=== PATIENT | male | born 1950 | race Caucasian/White ===

== ENCOUNTER 2020-05-09 08:48 | Inpatient (IN) | payer MEDICARE, BC ==
[2020-05-09] MEDS ORDERED: Acetaminophen 325 MG Tab PO ONE (08:56)
--- NOTE | 2020-05-09 09:01 | EDM.PDOC ---
ED HPI GENERAL MEDICAL PROBLEM - General Chief Complaint: Fever Stated Complaint: [facility] Time Seen by Provider: 05/09/20 08:50 Source of Information: Reports: Patient, EMS, Half-Way Records History Limitations: Reports: No Limitations - History of Present Illness INITIAL COMMENTS - FREE TEXT/NARRATIVE: 69-year-old male presents to the ED per [facility]. He is morbidly obese and took 6 medics to help lift him to the bed. Apparently he fell once last evening and again during the night with marked difficulties getting him back up on his own feet. Recognized to have a fever and some chills that developed last night. Denies cough or sputum production. Denies sore throat. He is a type II diabetic and reports that his control is pretty good. Denies any dysuria urgency or frequency. Nocturia usually x2. No open wounds on any skin. He currently resides at [facility] home. As far as he knows he has had no exposure to COVID-19. Denies headache. He has not yet eaten today. No nausea or vomiting or diarrhea. Paramedics identified his blood sugar to be 124 this morning. O2 sats were 88% and he was placed on 2 L/min by nasal cannula. Patient does have sleep apnea and wears a CPAP machine. Old status is listed as DO NOT RESUSCITATE. Onset: Gradual Onset Date: 05/08/20 Duration: Hour(s):, Getting Worse Location: Reports: Generalized (Neurolysed weakness with fever) Quality: Reports: Other Severity: Moderate (Generalized weakness with hypoxia.) Improves with: Reports: Rest Worsens with: Reports: Movement Context: Denies: Activity (And difficulty standing and walking due to generalized weakness particular in his lower extremities.), Exercise, Lifting, Sick Contact, Trauma, Other Associated Symptoms: Reports: Fever/Chills, Loss of Appetite (Fever this morning chills last night.), Malaise, Rash (Has a rash around the base of his left neck and upper anterior chest which he states been present for many months.), Shortness of Breath. Denies: No Other Symptoms, Confusion, Chest Pain, Cough, cough w sputum, Diaphoresis, Headaches, Nausea/Vomiting, Seizure, Syncope, Weakness Treatments FINANCE INTERN: Reports: Other (see below) (None.) - Related Data Allergies Allergy/AdvReac Type Severity Reaction Status Date / Time No Known Allergies Allergy Verified 05/09/20 08:58 Home Meds: Home Meds Acetaminophen [Tylenol] 650 mg PO ASDIRECTED PRN 05/09/20 [History] Albuterol Sulfate [Albuterol Sulfate Hfa] 2 puff INH BID 05/09/20 [History] Allopurinol [Zyloprim] 400 mg PO DAILY 05/09/20 [History] Aspirin 81 mg PO DAILY 05/09/20 [History] Calcium Carbonate/Vitamin D3 [Calcium Carbonate/Vitamin D 600 MG-200 Unit] 600 mg PO DAILY 05/09/20 [History] Furosemide [Lasix] 40 mg PO DAILY 05/09/20 [History] Levothyroxine 25 - 50 mcg PO ASDIRECTED 05/09/20 [History] Losartan [Cozaar] 100 mg PO DAILY 05/09/20 [History] Multivitamin 1 tab PO DAILY 05/09/20 [History] Spironolactone [Aldactone] 25 mg PO DAILY 05/09/20 [History] Ubidecarenone [Coenzyme Q10] 100 mg PO DAILY 05/09/20 [History] amLODIPine Besylate [Norvasc] 10 mg PO DAILY 05/09/20 [History] atorvaSTATin [Lipitor] 10 mg PO DAILY 05/09/20 [History] glipiZIDE [Glipizide ER] 5 mg PO DAILY 05/09/20 [History] metFORMIN HCl [Fortamet] 1,000 mg PO DAILY 05/09/20 [History] Past Medical History Cardiovascular History: Reports: Hypertension, [place] (ECG suggest old anteroseptal and inferior wall myocardial infarction's.) Respiratory History: Reports: COPD, Sleep Apnea (Does wear CPAP machine at bedtime.) Genitourinary History: Reports: BPH (Asim frequency. Nocturia x2), Other (See Below) Musculoskeletal History: Reports: Back Pain, Chronic, Osteoarthritis Endocrine/Metabolic History: Reports: Diabetes, Type II (Controlled with oral medications and diet for the last 7 years.), Obesity/BMI 30+ Social & Family History - Living Situation & Occupation Living situation: Reports: Extended Care Facility (Currently a resident at [facility] which is an assisted care living center.) Occupation: Unemployed ED ROS GENERAL - Review of Systems Review Of Systems: See Below Constitutional: Reports: Fever (As last night.), Chills, Malaise, Weakness ( Fever definitely this morning not noticeable much yesterday.), Fatigue, Other (Has fallen at home last night and again this morning. This due to weakness) HEENT: Reports: No Symptoms Respiratory: Reports: Shortness of Breath. Denies: Wheezing, Pleuritic Chest Pain, Cough, Sputum, Hemoptysis Cardiovascular: Reports: Blood Pressure Problem, Dyspnea on Exertion (Likely left lower extremity), Edema. Denies: Chest Pain, Claudication, Lightheadedness, Orthopnea Endocrine: Reports: Fatigue ( chronically.) GI/Abdominal: Reports: Constipation : Reports: Frequency (Nocturia x2-3. Known BPH.). Denies: Dysuria Musculoskeletal: Reports: Back Pain, Joint Pain (His hips neck shoulders at times.) Skin: Reports: No Symptoms Neurological: Reports: Difficulty Walking, Weakness Hematologic/Lymphatic: Reports: No Symptoms Immunologic: Reports: No Symptoms ED EXAM, SEPSIS - Physical Exam Exam: See Below Exam Limited By: Physical Impairment (Impaired mobility due to severe morbid obesity.) General Appearance: Alert, WD/WN, Mild Distress, Other (Temperature is 38.6 a markedly febrile. Pulse 113 and sinus. Respiratory of 24 with sats of 1 to 82% room air BP is recorded at 144 123 which is likely inaccurate due to pulse pressure being too close together.) Eye Exam: Bilateral Eye: Normal Inspection, PERRL Ears: Normal TMs Throat/Mouth: Normal Oropharynx (Tongue is moderately dry and coated.), Other Head: Atraumatic, Normocephalic Neck: Normal Inspection, Supple, Non-Tender, Full Range of Motion. No: Carotid Bruit, Lymphadenopathy (L), Lymphadenopathy (R) Respiratory/Chest: Respiratory Distress (Moderate tachypnea with hypoxia on room air.), Decreased Breath Sounds. No: Rales, Rhonchi, Wheezing Cardiovascular: No Edema (Sinus tachycardia), No Gallop, No Murmur, No Rub, Tachycardia. No: Normal Peripheral Pulses (Decreased breath sounds to the 25% of lower lung [place] bilaterally due to his size.) Peripheral Pulses: 1+: Posterior Tibial (L), Posterior Tibial (R), Dorsalis Pedis (L), Dorsalis Pedis (R), 2+: Carotid (L), Carotid (R) GI/Abdominal Exam: Normal Bowel Sounds, Soft, Non-Tender, No Organomegaly, No Mass, Pelvis Stable, Other (Abdominal girth limits ability to palpate solid organs. No surgical scars evident.) Back: Decreased Range of Motion. No: CVA Tenderness (L), CVA Tenderness (R) Extremities: Pedal Edema (1-2+ pitting edema left lower extremity. Lipedema bilaterally.), Other Neurological: Alert, Oriented, CN II-XII Intact, Normal Cognition Psychiatric: Normal Affect, Normal Mood Skin: Warm, Dry, Intact, Normal Color, Rash (Patient has a rash around the left side of his neck starting in the midline he reports this is from his CPAP machine rubbing in his skin. He also has a macular erythematous rash scattered over the upper anterior chest and left breast of unclear etiology. He states is been there for many years.) EKG INTERPRETATION EKG Date: 05/09/20 Time: 09:07 Rhythm: Other Rate (Beats/Min): 111 [place]: LAD-Left [place] Deviation (Left axis deviation -41 degrees) P-Wave: Present QRS: LBBB (Left anterior fascicular block pattern.) ST-T: Other (Wandering baseline.) QT: Normal EKG Interpretation Comments: Abnormal ECG. Course - Vital Signs Last Recorded V/S: Last Vital Signs Temp 38.6 C H 05/09/20 09:34 Pulse 113 H 05/09/20 08:54 Resp 24 H 05/09/20 08:54 BP 144/123 H 05/09/20 08:54 Pulse Ox 93 L 05/09/20 09:26 - Orders/Labs/Meds Orders: Active Orders 24 hr Category Date Time Status EKG Documentation Completion [RC] STAT Care 05/09/20 08:56 Active Oxygen Therapy [RC] ASDIRECTED Care 05/09/20 08:58 Active Chest 1V Frontal [CR] Stat Exams 05/09/20 08:56 Taken CULTURE BLOOD [BC] Stat Lab 05/09/20 09:23 Received CULTURE BLOOD [BC] Stat Lab 05/09/20 09:35 Received Remdesivir (Eua) [Remdesivir (EUA)] 100 mg Med 05/10/20 12:00 Active Sodium Chloride 0.9% [Normal Saline] 100 ml IV Q24H Remdesivir (Eua) [Remdesivir (EUA)] 200 mg Med 05/09/20 12:00 Active Sodium Chloride 0.9% [Normal Saline] 250 ml IV ONETIME Sodium Chloride 0.9% [Normal Saline] 1,000 ml Med 05/09/20 09:00 Active IV ASDIRECTED Blood Culture x2 Reflex Set [OM.PC] Stat Oth 05/09/20 08:58 Ordered Medication Orders Acetaminophen (Tylenol) 650 mg PO Q4H PRN PRN Reason: Pain (Mild 1-3)/fever Dexamethasone (Dexamethasone) 6 mg IVPUSH Q24H NURYS Dextrose/Water (Dextrose 50% In Water) 50 ml IVPUSH ASDIRECTED PRN PRN Reason: Hypoglycemia Enoxaparin Sodium (Lovenox) 40 mg SUBCUT Q12H NURYS Hydralazine HCl (Apresoline) 10 mg IVPUSH Q2H PRN PRN Reason: Hypertension Sodium Chloride (Normal Saline) 1,000 mls @ 150 mls/hr IV ASDIRECTED NURYS Last Admin: 05/09/20 09:38 Dose: 150 mls/hr Documented by: HEINSHA Remdesivir 200 mg/ Sodium (Chloride) 250 mls @ 250 mls/hr IV ONETIME ONE Stop: 05/09/20 12:59 Last Admin: 05/09/20 11:47 Dose: 250 mls/hr Documented by: HEINSHA Remdesivir 100 mg/ Sodium (Chloride) 100 mls @ 100 mls/hr IV Q24H [facility] Stop: 05/13/20 12:59 Tocilizumab 800 mg/ Sodium (Chloride) 100 mls @ 100 mls/hr IV Q12H [facility] Stop: 05/10/20 01:59 Insulin Glargine (Lantus) 5 unit SUBCUT BEDTIME NURYS Ondansetron HCl (Zofran Odt) 4 mg PO Q6H PRN PRN Reason: nausea, able to take PO Ondansetron HCl (Zofran) 4 mg IV Q6H PRN PRN Reason: Nausea/Vomiting Labs: Laboratory Tests 05/09/20 05/09/20 05/09/20 Range/Units 09:15 09:15 09:23 WBC 6.80 (4.23-9.07) K/mm3 RBC 4.39 L (4.63-6.08) M/mm3 Hgb 13.0 L (13.7-17.5) gm/dl Hct 40.5 (40.1-51.0) % MCV 92.3 H (79.0-92.2) fl MCH 29.6 (25.7-32.2) pg MCHC 32.1 L (32.2-35.5) g/dl RDW Std Deviation 45.6 H (35.1-43.9) fL Plt Count 212 (163-337) K/mm3 MPV 9.2 L (9.4-12.3) fl Neutrophils % (Manual) 73 H (40-60) % Band Neutrophils % 1 (0-10) % Lymphocytes % (Manual) 12 L (20-40) % Atypical Lymphs % 0 % Monocytes % (Manual) 14 H (2-10) % Eosinophils % (Manual) 0 L (0.8-7.0) % Basophils % (Manual) 0 L (0.2-1.2) Platelet Estimate Adequate RBC Morph Comment Normal Percent Retic (0.51-1.81) % PT (9.7-11.7) SECONDS INR APTT (22-31) SECONDS D-Dimer, Quantitative (0.19-0.50) mg/L Puncture Site Rt radial ABG pH 7.38 (7.35-7.45) ABG pCO2 45.0 (35.0-45.0) mmHg ABG pO2 89.0 (80.0-100.0) mmHg ABG HCO3 26 (22.0-26.0) meq/L ABG O2 Saturation 95.0 L (96.0-97.0) % ABG Base Excess 1.2 (-2-2.0) Harjinder Test Positive A-a Gradient 83 mmHg O2 Delivery Device Nasal cannula Oxygen Flow Rate 3.0 FiO2 32.00 (21.00-100.00) % Sodium (136-145) mEq/L Potassium (3.5-5.1) mEq/L Chloride (98-107) mEq/L Carbon Dioxide (21-32) mEq/L Anion Gap (5-15) BUN (7-18) mg/dL Creatinine (0.7-1.3) mg/dL Est Cr Clr Drug Dosing mL/min Estimated GFR (MDRD) (>60) mL/min BUN/Creatinine Ratio (14-18) Glucose (80-115) mg/dL Hemoglobin A1c (4.50-6.20) % Lactic Acid (0.4-2.0) mmol/L Calcium (8.5-10.1) mg/dL Magnesium (1.8-2.4) mg/dl Iron (65-175) ug/dL TIBC (100-400) ug/dL % Saturation (20-55) % Transferrin (202-364) mg/dL Ferritin (26-388) ng/ml Total Bilirubin (0.2-1.0) mg/dL AST (15-37) U/L ALT (16-63) U/L Alkaline Phosphatase (46-116) U/L Lactate Dehydrogenase (85-227) U/L CK-MB (CK-2) (0-3.6) ng/ml Troponin I (0.00-0.056) ng/mL C-Reactive Protein (<1.0) mg/dL NT-Pro-B Natriuret Pep (0-125) pg/mL Total Protein (6.4-8.2) g/dl Albumin (3.4-5.0) g/dl Globulin gm/dL Albumin/Globulin Ratio (1-2) Vitamin D 25-Hydroxy (30.0-100.0) ng/ml SARS Virus RNA (PCR) Positive H (NEGATIVE) 05/09/20 05/09/20 05/09/20 Range/Units 09:23 09:23 09:23 WBC (4.23-9.07) K/mm3 RBC (4.63-6.08) M/mm3 Hgb (13.7-17.5) gm/dl Hct (40.1-51.0) % MCV (79.0-92.2) fl MCH (25.7-32.2) pg MCHC (32.2-35.5) g/dl RDW Std Deviation (35.1-43.9) fL Plt Count (163-337) K/mm3 MPV (9.4-12.3) fl Neutrophils % (Manual) (40-60) % Band Neutrophils % (0-10) % Lymphocytes % (Manual) (20-40) % Atypical Lymphs % % Monocytes % (Manual) (2-10) % Eosinophils % (Manual) (0.8-7.0) % Basophils % (Manual) (0.2-1.2) Platelet Estimate RBC Morph Comment Percent Retic (0.51-1.81) % PT 10.9 (9.7-11.7) SECONDS INR 1.02 APTT 32 H (22-31) SECONDS D-Dimer, Quantitative (0.19-0.50) mg/L Puncture Site ABG pH (7.35-7.45) ABG pCO2 (35.0-45.0) mmHg ABG pO2 (80.0-100.0) mmHg ABG HCO3 (22.0-26.0) meq/L ABG O2 Saturation (96.0-97.0) % ABG Base Excess (-2-2.0) Harjinder Test A-a Gradient mmHg O2 Delivery Device Oxygen Flow Rate FiO2 (21.00-100.00) % Sodium (136-145) mEq/L Potassium (3.5-5.1) mEq/L Chloride (98-107) mEq/L Carbon Dioxide (21-32) mEq/L Anion Gap (5-15) BUN (7-18) mg/dL Creatinine (0.7-1.3) mg/dL Est Cr Clr Drug Dosing mL/min Estimated GFR (MDRD) (>60) mL/min BUN/Creatinine Ratio (14-18) Glucose (80-115) mg/dL Hemoglobin A1c (4.50-6.20) % Lactic Acid (0.4-2.0) mmol/L Calcium (8.5-10.1) mg/dL Magnesium (1.8-2.4) mg/dl Iron (65-175) ug/dL TIBC (100-400) ug/dL % Saturation (20-55) % Transferrin (202-364) mg/dL Ferritin 243 (26-388) ng/ml Total Bilirubin (0.2-1.0) mg/dL AST (15-37) U/L ALT (16-63) U/L Alkaline Phosphatase (46-116) U/L Lactate Dehydrogenase (85-227) U/L CK-MB (CK-2) (0-3.6) ng/ml Troponin I (0.00-0.056) ng/mL C-Reactive Protein (<1.0) mg/dL NT-Pro-B Natriuret Pep (0-125) pg/mL Total Protein (6.4-8.2) g/dl Albumin (3.4-5.0) g/dl Globulin gm/dL Albumin/Globulin Ratio (1-2) Vitamin D 25-Hydroxy (30.0-100.0) ng/ml SARS Virus RNA (PCR) (NEGATIVE) 05/09/20 05/09/20 05/09/20 Range/Units 09:23 09:23 09:23 WBC (4.23-9.07) K/mm3 RBC (4.63-6.08) M/mm3 Hgb (13.7-17.5) gm/dl Hct (40.1-51.0) % MCV (79.0-92.2) fl MCH (25.7-32.2) pg MCHC (32.2-35.5) g/dl RDW Std Deviation (35.1-43.9) fL Plt Count (163-337) K/mm3 MPV (9.4-12.3) fl Neutrophils % (Manual) (40-60) % Band Neutrophils % (0-10) % Lymphocytes % (Manual) (20-40) % Atypical Lymphs % % Monocytes % (Manual) (2-10) % Eosinophils % (Manual) (0.8-7.0) % Basophils % (Manual) (0.2-1.2) Platelet Estimate RBC Morph Comment Percent Retic (0.51-1.81) % PT (9.7-11.7) SECONDS INR APTT (22-31) SECONDS D-Dimer, Quantitative 0.85 H (0.19-0.50) mg/L Puncture Site ABG pH (7.35-7.45) ABG pCO2 (35.0-45.0) mmHg ABG pO2 (80.0-100.0) mmHg ABG HCO3 (22.0-26.0) meq/L ABG O2 Saturation (96.0-97.0) % ABG Base Excess (-2-2.0) Harjinder Test A-a Gradient mmHg O2 Delivery Device Oxygen Flow Rate FiO2 (21.00-100.00) % Sodium (136-145) mEq/L Potassium (3.5-5.1) mEq/L Chloride (98-107) mEq/L Carbon Dioxide (21-32) mEq/L Anion Gap (5-15) BUN (7-18) mg/dL Creatinine (0.7-1.3) mg/dL Est Cr Clr Drug Dosing mL/min Estimated GFR (MDRD) (>60) mL/min BUN/Creatinine Ratio (14-18) Glucose (80-115) mg/dL Hemoglobin A1c (4.50-6.20) % Lactic Acid 0.9 (0.4-2.0) mmol/L Calcium (8.5-10.1) mg/dL Magnesium (1.8-2.4) mg/dl Iron (65-175) ug/dL TIBC (100-400) ug/dL % Saturation (20-55) % Transferrin (202-364) mg/dL Ferritin (26-388) ng/ml Total Bilirubin (0.2-1.0) mg/dL AST (15-37) U/L ALT (16-63) U/L Alkaline Phosphatase (46-116) U/L Lactate Dehydrogenase (85-227) U/L CK-MB (CK-2) (0-3.6) ng/ml Troponin I (0.00-0.056) ng/mL C-Reactive Protein (<1.0) mg/dL NT-Pro-B Natriuret Pep 226 H (0-125) pg/mL Total Protein (6.4-8.2) g/dl Albumin (3.4-5.0) g/dl Globulin gm/dL Albumin/Globulin Ratio (1-2) Vitamin D 25-Hydroxy (30.0-100.0) ng/ml SARS Virus RNA (PCR) (NEGATIVE) 05/09/20 05/09/20 05/09/20 Range/Units 09:23 09:23 09:23 WBC (4.23-9.07) K/mm3 RBC (4.63-6.08) M/mm3 Hgb (13.7-17.5) gm/dl Hct (40.1-51.0) % MCV (79.0-92.2) fl MCH (25.7-32.2) pg MCHC (32.2-35.5) g/dl RDW Std Deviation (35.1-43.9) fL Plt Count (163-337) K/mm3 MPV (9.4-12.3) fl Neutrophils % (Manual) (40-60) % Band Neutrophils % (0-10) % Lymphocytes % (Manual) (20-40) % Atypical Lymphs % % Monocytes % (Manual) (2-10) % Eosinophils % (Manual) (0.8-7.0) % Basophils % (Manual) (0.2-1.2) Platelet Estimate RBC Morph Comment Percent Retic 0.61 (0.51-1.81) % PT (9.7-11.7) SECONDS INR APTT (22-31) SECONDS D-Dimer, Quantitative (0.19-0.50) mg/L Puncture Site ABG pH (7.35-7.45) ABG pCO2 (35.0-45.0) mmHg ABG pO2 (80.0-100.0) mmHg ABG HCO3 (22.0-26.0) meq/L ABG O2 Saturation (96.0-97.0) % ABG Base Excess (-2-2.0) Harjinder Test A-a Gradient mmHg O2 Delivery Device Oxygen Flow Rate FiO2 (21.00-100.00) % Sodium (136-145) mEq/L Potassium (3.5-5.1) mEq/L Chloride (98-107) mEq/L Carbon Dioxide (21-32) mEq/L Anion Gap (5-15) BUN (7-18) mg/dL Creatinine (0.7-1.3) mg/dL Est Cr Clr Drug Dosing mL/min Estimated GFR (MDRD) (>60) mL/min BUN/Creatinine Ratio (14-18) Glucose (80-115) mg/dL Hemoglobin A1c 6.70 H (4.50-6.20) % Lactic Acid (0.4-2.0) mmol/L Calcium (8.5-10.1) mg/dL Magnesium (1.8-2.4) mg/dl Iron (65-175) ug/dL TIBC (100-400) ug/dL % Saturation (20-55) % Transferrin (202-364) mg/dL Ferritin (26-388) ng/ml Total Bilirubin (0.2-1.0) mg/dL AST (15-37) U/L ALT (16-63) U/L Alkaline Phosphatase (46-116) U/L Lactate Dehydrogenase 297 H (85-227) U/L CK-MB (CK-2) (0-3.6) ng/ml Troponin I (0.00-0.056) ng/mL C-Reactive Protein (<1.0) mg/dL NT-Pro-B Natriuret Pep (0-125) pg/mL Total Protein (6.4-8.2) g/dl Albumin (3.4-5.0) g/dl Globulin gm/dL Albumin/Globulin Ratio (1-2) Vitamin D 25-Hydroxy (30.0-100.0) ng/ml SARS Virus RNA (PCR) (NEGATIVE) 05/09/20 05/09/20 05/09/20 Range/Units 09:23 09:23 09:25 WBC (4.23-9.07) K/mm3 RBC (4.63-6.08) M/mm3 Hgb (13.7-17.5) gm/dl Hct (40.1-51.0) % MCV (79.0-92.2) fl MCH (25.7-32.2) pg MCHC (32.2-35.5) g/dl RDW Std Deviation (35.1-43.9) fL Plt Count (163-337) K/mm3 MPV (9.4-12.3) fl Neutrophils % (Manual) (40-60) % Band Neutrophils % (0-10) % Lymphocytes % (Manual) (20-40) % Atypical Lymphs % % Monocytes % (Manual) (2-10) % Eosinophils % (Manual) (0.8-7.0) % Basophils % (Manual) (0.2-1.2) Platelet Estimate RBC Morph Comment Percent Retic (0.51-1.81) % PT (9.7-11.7) SECONDS INR APTT (22-31) SECONDS D-Dimer, Quantitative (0.19-0.50) mg/L Puncture Site ABG pH (7.35-7.45) ABG pCO2 (35.0-45.0) mmHg ABG pO2 (80.0-100.0) mmHg ABG HCO3 (22.0-26.0) meq/L ABG O2 Saturation (96.0-97.0) % ABG Base Excess (-2-2.0) Harjinder Test A-a Gradient mmHg O2 Delivery Device Oxygen Flow Rate FiO2 (21.00-100.00) % Sodium 133 L (136-145) mEq/L Potassium 4.0 (3.5-5.1) mEq/L Chloride 95 L (98-107) mEq/L Carbon Dioxide 27 (21-32) mEq/L Anion Gap 15.0 (5-15) BUN 33 H (7-18) mg/dL Creatinine 1.3 (0.7-1.3) mg/dL Est Cr Clr Drug Dosing 50.14 mL/min Estimated GFR (MDRD) 55 (>60) mL/min BUN/Creatinine Ratio 25.4 H (14-18) Glucose 126 H (80-115) mg/dL Hemoglobin A1c (4.50-6.20) % Lactic Acid (0.4-2.0) mmol/L Calcium 9.1 (8.5-10.1) mg/dL Magnesium 1.9 (1.8-2.4) mg/dl Iron 11 L (65-175) ug/dL TIBC 285 (100-400) ug/dL % Saturation 4 L (20-55) % Transferrin 228 (202-364) mg/dL Ferritin (26-388) ng/ml Total Bilirubin 0.4 (0.2-1.0) mg/dL AST 52 H (15-37) U/L ALT 43 (16-63) U/L Alkaline Phosphatase 46 (46-116) U/L Lactate Dehydrogenase (85-227) U/L CK-MB (CK-2) 3.4 (0-3.6) ng/ml Troponin I 0.031 (0.00-0.056) ng/mL C-Reactive Protein 14.0 H* (<1.0) mg/dL NT-Pro-B Natriuret Pep (0-125) pg/mL Total Protein 7.1 (6.4-8.2) g/dl Albumin 3.2 L (3.4-5.0) g/dl Globulin 3.9 gm/dL Albumin/Globulin Ratio 0.8 L (1-2) Vitamin D 25-Hydroxy 41.8 (30.0-100.0) ng/ml SARS Virus RNA (PCR) (NEGATIVE) Meds: Medications Generic Name Dose Route Start Last Admin Trade Name Freq PRN Reason Stop Dose Admin Acetaminophen 650 mg 05/09/20 11:27 Tylenol PO Q4H PRN Pain (Mild 1-3)/fever Dexamethasone 6 mg 05/09/20 11:30 Dexamethasone IVPUSH Q24H NURYS Dextrose/Water 50 ml 05/09/20 11:27 Dextrose 50% In Water IVPUSH ASDIRECTED PRN Hypoglycemia Enoxaparin Sodium 40 mg 05/09/20 11:30 Lovenox SUBCUT Q12H NURYS Hydralazine HCl 10 mg 05/09/20 11:32 Apresoline IVPUSH Q2H PRN Hypertension Sodium Chloride 1,000 mls @ 150 mls/hr 05/09/20 09:00 05/09/20 09:38 Normal Saline IV 150 mls/hr ASDIRECTED NURYS Administration Remdesivir 200 mg/ Sodium 250 mls @ 250 mls/hr 05/09/20 12:00 05/09/20 11:47 Chloride IV 05/09/20 12:59 250 mls/hr ONETIME ONE Administration Remdesivir 100 mg/ Sodium 100 mls @ 100 mls/hr 05/10/20 12:00 Chloride IV 05/13/20 12:59 Q24H [facility] Tocilizumab 800 mg/ Sodium 100 mls @ 100 mls/hr 05/09/20 13:00 Chloride IV 05/10/20 01:59 Q12H [facility] Insulin Glargine 5 unit 05/09/20 21:00 Lantus SUBCUT BEDTIME [facility] Ondansetron HCl 4 mg 05/09/20 11:27 Zofran Odt PO Q6H PRN nausea, able to take PO Ondansetron HCl 4 mg 05/09/20 11:27 Zofran IV Q6H PRN Nausea/Vomiting Discontinued Medications Generic Name Dose Route Start Last Admin Trade Name Freq PRN Reason Stop Dose Admin Acetaminophen 975 mg 05/09/20 08:56 05/09/20 09:34 Tylenol PO 05/09/20 08:57 975 mg ONETIME ONE Administration Tocilizumab 800 mg/ Sodium 100 mls @ 100 mls/hr 05/09/20 13:00 Chloride IV 05/10/20 01:59 Q12H [facility] Tocilizumab 800 mg 05/09/20 21:00 Actemra IV 05/10/20 09:01 Q12HR [facility] - Radiology Interpretation Free Text/Narrative:: 69-year-old male presents to the ED from [facility] here in [place] per [facility]. History of fall last night and again early this morning. He is a very large man and required 3 person 4 person assist to get him back up. He was appreciated to have a fever. He complained of some chills last evening. Denies cough or sputum production. Denies exposure to COVID-19. He is a type II diabetic states that his sugars are well controlled on oral medications. He has not yet eaten today. No apparent injuries from falls. Examination reveals morbid obesity. Lungs sound clear oropharynx shows a very dry coated tongue. Benign abdominal exam. Plan septic work-up to be completed. IV will be normal saline at 125 mils per hour. Will require oxygen at 3 L/min per nasal cannula. Patient wears a CPAP machine for sleep apnea. ABGs will be done. COVID-19 work-up will also be done. Given Tylenol 9 7 5 mg p.o. - Re-Assessments/Exams Free Text/Narrative Re-Assessment/Exam: 05/09/20 09:50 ABGs revealed a pH of 7.38 with a PCO2 of 45.1 PO2 of 89 with O2 sats of 95% on 3 L/min by nasal cannula. O2 sats on the monitor currently 92%. BP 108/42. 05/09/20 10:24 Blood pressure has currently slipped down to 90/51. He will be repositioned since he is moving a lot to make sure this is an accurate blood pressure if it is he will receive a 250 mill fluid bolus. Chest x-ray done portably reveals bilateral infiltrates in both lung [place] pneumonia versus fluid overload. Fact that he is febrile strongly suggest pneumonia with possible COVID 19 illness. 05/09/20 10:25 White count is 6.80 with 73% neutrophils and 1% bands cells reported. Hemoglobin is 13.0 with hematocrit of 40.5. MCV slightly elevated at 92.3. Platelet count 212,000. PT is 10.9 with an INR of 1.02. PTT is 32 d- dimer is slightly elevated at 0.85. Blood gases revealed a pH of 7.38 PCO2 of 45.0 PO2 of 89 with O2 sats of 95% on nasal cannula at 3 L. Hemoglobin A1c is 6.70 lactic acid is 0.9. The low white count suggest this is a viral illness and most likely represents COVID-19. Pressure improved with a mean arterial pressure sure of 67. Therefore no normal saline bolus was given. Case has been discussed with Dr. Evans on-call hospitalist and she will see the patient in the emergency room. He is saturating at 92 to 94% on 3 L by nasal cannula at this time. He has multiple comorbidities placing her at risk of extremely serious illness from COVID-19 at this time. He is morbidly obese. His ECG suggests old myocardial infarction's with coronary disease. He has COPD and sleep apnea. Free Text/Narrative Re-Assessment/Exam: 05/09/20 11:10 Serum ferritin is 243. CK-MB fraction is 3.4 with a troponin I of less than 0.031. C-reactive protein is 14.0. BNP is 226. COVID-19 is positive. LDH is pending. 05/09/20 11:37 LDH is mildly elevated at 297. Dr. Evans is seen the patient in the ED and will plan to admit him to the hospital due to COVID-19 illness. Departure - Departure Time of Disposition: 12:44 Disposition: Admitted As Inpatient 66 Condition: Serious Clinical Impression: Morbid obesity with BMI of 50.0-59.9, adult, Type 2 diabetes mellitus, COVID-19 determined by clinical diagnostic criteria, Bilateral pneumonia, Hypoxia - Discharge Information *PRESCRIPTION DRUG MONITORING PROGRAM REVIEWED*: Not Applicable *COPY OF PRESCRIPTION DRUG MONITORING REPORT IN PATIENT EDWIN: Not Applicable Sepsis Event Note (ED) - Focused Exam Vital Signs: Vital Signs Temp Temp Pulse Resp BP Pulse Ox Pulse Ox 05/09/20 09:34 38.6 C H 05/09/20 09:26 93 L 05/09/20 08:54 38.6 C H 113 H 24 H 144/123 H 82 L - My Orders Last 24 Hours: My Active Orders 05/09/20 08:56 EKG Documentation Completion [RC] STAT Chest 1V Frontal [CR] Stat 05/09/20 08:58 Oxygen Therapy [RC] ASDIRECTED Blood Culture x2 Reflex Set [OM.PC] Stat 05/09/20 09:00 Sodium Chloride 0.9% [Normal Saline] 1,000 ml IV ASDIRECTED 05/09/20 09:23 CULTURE BLOOD [BC] Stat 05/09/20 09:35 CULTURE BLOOD [BC] Stat - Assessment/Plan Last 24 Hours: My Active Orders 05/09/20 08:56 EKG Documentation Completion [RC] STAT Chest 1V Frontal [CR] Stat 05/09/20 08:58 Oxygen Therapy [RC] ASDIRECTED Blood Culture x2 Reflex Set [OM.PC] Stat 05/09/20 09:00 Sodium Chloride 0.9% [Normal Saline] 1,000 ml IV ASDIRECTED 05/09/20 09:23 CULTURE BLOOD [BC] Stat 05/09/20 09:35 CULTURE BLOOD [BC] Stat
[2020-05-09] MEDS: Sodium Chloride 0.9% 1,000 ML IV SCH ×3 (09:38→21:22)
[2020-05-09 10:16] LABS: HEMOGLOBIN A1C 6.7 % (4.50-6.20)
[2020-05-09] MEDS ORDERED: 50% Dextrose in Water 50 ML Syringe IVPUSH PRN (11:27)
[2020-05-09] MEDS ORDERED: Ondansetron 4 MG Tab.DIS PO PRN (11:27)
[2020-05-09] MEDS ORDERED: Ondansetron 4 MG/2 ML SDV IV PRN (11:27)
[2020-05-09] MEDS ORDERED: hydrALAZINE 20 MG/ML SDV IVPUSH PRN (11:32)
--- NOTE | 2020-05-09 11:44 | PCM.HP.2 ---
H&P History of Present Illness - General Date of Service: 05/09/20 Admit Problem/Dx: Admission Diagnosis/Problem Admission Diagnosis/Problem Viral pneumonia - History of Present Illness Initial Comments - Free Text/Narative: This is a 69-year-old male with past medical history of COPD, LUKAS, diabetes and hypertension who comes emergency department brought in via EMS from [place], shortness of breath, hypoxemia and decreased appetite. As per patient he was in his usual state of health until yesterday while transferring from his chair to. Describes falling denies legs giving out from under him any symptoms before or after or loss of consciousness. This morning had a second fall described as "exactly the same as yesterday". Does state that he had some chills last night. For [facility] patient's vital signs this morning were heart rate of 128, respiratory rate of 38, blood pressure 135/60, temperature 100.8 and pulse ox of 70% on room air. They also state the patient is normally a pivot to his chair pending but has been unable to do so since yesterday. Associated with CONWAY and mild worsening of edema of his left foot. He denies sputum production, bronchitis, chest pain, palpitations, orthopnea, PND, abdominal pain, diarrhea, nausea, vomiting or problems in his urine. - Related Data Allergies/Adverse Reactions: Allergies Allergy/AdvReac Type Severity Reaction Status Date / Time No Known Allergies Allergy Verified 05/09/20 08:58 Home Medications: Home Meds Acetaminophen [Tylenol] 650 mg PO ASDIRECTED PRN 05/09/20 [History] Albuterol Sulfate [Albuterol Sulfate Hfa] 2 puff INH BID 05/09/20 [History] Allopurinol [Zyloprim] 400 mg PO DAILY 05/09/20 [History] Aspirin 81 mg PO DAILY 05/09/20 [History] Calcium Carbonate/Vitamin D3 [Calcium Carbonate/Vitamin D 600 MG-200 Unit] 600 mg PO DAILY 05/09/20 [History] Furosemide [Lasix] 40 mg PO DAILY 05/09/20 [History] Levothyroxine 25 - 50 mcg PO ASDIRECTED 05/09/20 [History] Losartan [Cozaar] 100 mg PO DAILY 05/09/20 [History] Multivitamin 1 tab PO DAILY 05/09/20 [History] Spironolactone [Aldactone] 25 mg PO DAILY 05/09/20 [History] Ubidecarenone [Coenzyme Q10] 100 mg PO DAILY 05/09/20 [History] amLODIPine Besylate [Norvasc] 10 mg PO DAILY 05/09/20 [History] atorvaSTATin [Lipitor] 10 mg PO DAILY 05/09/20 [History] glipiZIDE [Glipizide ER] 5 mg PO DAILY 05/09/20 [History] metFORMIN HCl [Fortamet] 1,000 mg PO DAILY 05/09/20 [History] Past Medical History Cardiovascular History: Reports: Hypertension, CA (ECG suggest old anteroseptal and inferior wall myocardial infarction's.) Respiratory History: Reports: COPD, Sleep Apnea (Does wear CPAP machine at bedtime.) Genitourinary History: Reports: BPH (Asim frequency. Nocturia x2), Other (See Below) Musculoskeletal History: Reports: Back Pain, Chronic, Osteoarthritis Endocrine/Metabolic History: Reports: Diabetes, Type II (Controlled with oral medications and diet for the last 7 years.), Obesity/BMI 30+ Social & Family History - Living Situation & Occupation Living situation: Reports: Extended Care Facility (Currently a resident at [facility] which is an assisted care living center.) Occupation: Unemployed H&P Review of Systems - Review of Systems: Review Of Systems: See Below General: Reports: Chills, Weakness, Decreased Appetite. Denies: Fever, Malaise, Fatigue, Night Sweats, Diaphoresis HEENT: Denies: Post Nasal Drip, Sinus Congestion, Sore Throat, Vertigo, Visual Changes Pulmonary: Reports: Shortness of Breath. Denies: Wheezing, Pleuritic Chest Pain, Cough, Sputum, Hemoptysis Cardiovascular: Reports: Dyspnea on Exertion, Edema. Denies: Chest Pain, Palpitations, Orthopnea, PND, Lightheadedness, Syncope, Claudication, Blood Pressure Problem Gastrointestinal: Denies: Abdominal Pain, Anorexia, Black Stool, Bloody Stool, Constipation, Diarrhea, Nausea, Vomiting Genitourinary: Denies: Dysuria, Frequency, Burning, Pain, Urgency Musculoskeletal: Denies: Joint Pain, Joint Swelling, Muscle Pain, Muscle Stiffness Skin: Reports: Diaphoresis. Denies: Cyanosis, Jaundice, Mottled, Pallor Psychiatric: Denies: Depression, Mood Lability, Anxiety Neurological: Denies: Dizziness, Headache, Numbness Exam - Exam Exam: See Below - Vital Signs Vital Signs: Last Vital Signs Temp 101.5 F H 05/09/20 09:34 Pulse 113 H 05/09/20 08:54 Resp 24 H 05/09/20 08:54 BP 144/123 H 05/09/20 08:54 Pulse Ox 93 L 05/09/20 09:26 Weight: 172.365 kg - Exam Quality Assessment: Other (Confounded by body habitus) General: Alert, Oriented, Cooperative, Mild Distress HEENT: Conjunctiva Clear, EACs Clear, EOMI, Hearing Intact, Mucosa Moist & [place] Neck: Supple Lungs: Decreased Breath Sounds. No: Crackles, Rales, Rhonchi, Rub, Stridor, Wheezing Cardiovascular: Regular Rhythm, Tachycardia. No: Systolic Murmur, Diastolic Mur mur, Rubs, Gallop/S3, Gallop/S4 GI/Abdominal Exam: Distended, Rigid. No: Guarding, Rebound, Tender Extremities: Other (Stasis dermatitis, 1+ pitting edema on left lower extremity up to mid mehta. Significant onychogryphosis) Peripheral Pulses: 2+: Radial (L), Radial (R) Skin: Dry, Intact - Patient Data Result Diagrams: 05/09/20 09:23 05/09/20 09:25 Sepsis Event Note - Evaluation Sepsis Screening Result: Possible Sepsis Risk - Problem List (1) Pneumonia due to COVID-19 virus SNOMED Code(s): 554054439 ICD Code: U07.1 - COVID-19; J12.89 - OTHER VIRAL PNEUMONIA Status: Acute Current Visit: Yes (2) Acute hypoxemic respiratory failure due to COVID-19 SNOMED Code(s): 497264578 ICD Code: U07.1 - COVID-19; J96.01 - ACUTE RESPIRATORY FAILURE WITH HYPOXIA Status: Acute Current Visit: Yes (3) COPD (chronic obstructive pulmonary disease) SNOMED Code(s): 29636829 ICD Code: J44.9 - CHRONIC OBSTRUCTIVE PULMONARY DISEASE, UNSPECIFIED Status: Acute Current Visit: Yes (4) Obstructive sleep apnea SNOMED Code(s): 01415672 ICD Code: G47.33 - OBSTRUCTIVE SLEEP APNEA (ADULT) (PEDIATRIC) Status: Acute Current Visit: Yes (5) Hypertension SNOMED Code(s): 52464964 ICD Code: I10 - ESSENTIAL (PRIMARY) HYPERTENSION Status: Acute Current Visit: Yes (6) Diabetes mellitus SNOMED Code(s): 39580809 ICD Code: E11.9 - TYPE 2 DIABETES MELLITUS WITHOUT COMPLICATIONS Status: Acute Current Visit: Yes (7) Microcytic hypochromic anemia SNOMED Code(s): 75077840 ICD Code: D50.9 - IRON DEFICIENCY ANEMIA, UNSPECIFIED Status: Acute Current Visit: Yes (8) Acute kidney injury due to COVID-19 SNOMED Code(s): 285301224 ICD Code: U07.1 - COVID-19; N17.9 - ACUTE KIDNEY FAILURE, UNSPECIFIED Status: Acute Current Visit: Yes (9) Hypoalbuminemia SNOMED Code(s): 669064600 ICD Code: E88.09 - OTH DISORDERS OF PLASMA-PROTEIN METABOLISM, NEC Status: Acute Current Visit: Yes (10) Morbid obesity with BMI of 50.0-59.9, adult SNOMED Code(s): 275576164, 00899982877510 ICD Code: E66.01 - MORBID (SEVERE) OBESITY DUE TO EXCESS CALORIES; Z68.43 - BODY MASS INDEX (BMI) 50.0-59.9, ADULT Status: Acute Current Visit: Yes (11) Hypothyroidism SNOMED Code(s): 37186094 ICD Code: E03.9 - HYPOTHYROIDISM, UNSPECIFIED Status: Acute Current Visit: Yes (12) Dyslipidemia SNOMED Code(s): 428511419 ICD Code: E78.5 - HYPERLIPIDEMIA, UNSPECIFIED Status: Acute Current Visit: Yes (13) Gout SNOMED Code(s): 29502989 ICD Code: M10.9 - GOUT, UNSPECIFIED Status: Acute Current Visit: Yes Problem List Initiated/Reviewed/Updated: Yes Assessment/Plan Comment:: Brought in via EMS from [facility] for worsening shortness of breath, hypoxemia and 2 falls associated with CONWAY and chills last night Vital signs Prior to transfer: Rate 128, respiratory rate 38, blood pressure 134/50 temp 100.8, felt 70% on room air Upon arrival to ED: Heart rate 113, blood pressure 144/123 (130), temperature 101.5, pulse ox 82% on room air (went up to 92% on 3 L) Placed on nasal cannula once in the emergency department did stabilize pulse ox Lab results CBC: WBC 6.8, hemoglobin 13 (macrocytic hypochromic), platelets 212 Chemistry: Sodium 133, potassium 4, chloride 95, magnesium 1.9, CO2 27, GFR 55, glucose 126 LFTs: Total bilirubin 0.4, alkaline phosphatase 46, AST 43, ALT 52, total protein 7.1, albumin 3.2 D-dimer 0.85 Lactate 0.9 Ferritin 243 proBNP 226 CRP 14 ABGs: 7.38/40 5.1/80 9/20 6.1/95.1 on 3 L nasal cannula Hemoglobin A1c 6.7 COVID 19 + Other results: Chest x-ray: Bilateral patchy infiltrates throughout lung [place], diminished lung size, no pleural effusions EKG: Left axis deviation, Q waves in inferior and anterior leads (III, aVF, V4 through V6) Pneumonia due to COVID-19 virus Acute hypoxemic respiratory failure due to COVID-19 Pulse ox 82% on room air upon admission which increased to 92% once patient was placed on nasal cannula No respiratory distress noted upon my evaluation Despite body habitus adequate air entry was heard throughout except for diminished at bases ABGs with adequate PaO2 and saturation Multiple cases positive from [place] Chest x-ray compatible with bilateral viral pneumonia Inflammatory markers except for CRP are low Fever likely from viral infection however blood cultures were drawn in the emergency department Has some risk factors for bacterial pneumonia as well for which her procal citonin will be ordered and trended PLAN Start Remdesivir, to complete 5 days Start dexamethasone 6 mg daily to complete 10 days Start Actemra x2 doses for now Depending on improvement tomorrow will decide whether or not he needs convalescent plasma COPD (chronic obstructive pulmonary disease) COPD, not oxygen dependent at home Has never needed oxygen supplementation before Never been admitted to the hospital for COPD exacerbation Only home treatment is albuterol HFA twice daily Patient is not wheezing on physical exam, air entry is severely diminished however this is confounded by body habitus Since patient was tachycardic on admission we will hold off on albuterol unless needed PLAN Monitor oxygenation Goal pulse ox above 88 Hold home albuterol Obstructive sleep apnea Endorses full compliance with nightly CPAP for LUKAS Pressure is 8, last adjustment about a year ago PLAN Called [facility] to bring home CPAP Hypertension Blood pressure control is unable to be determined as patient was short of breath and in distress with initial vital signs Home management with amlodipine 10 and losartan 100 PLAN Continue home amlodipine and losartan PRN hydralazine for SBP above 200 and DBP above 100 Diabetes mellitus, HbA1c6.7% Diabetes appears to be controlled A1c of 6.7, might be a little bit different due to patient being anemic Glucose at home ranges between 125 and 145 as per patient Home management with metformin and glipizide Has never been on insulin Patient will be started on dexamethasone as per COVID management for which low dose long-acting insulin will be started and adjusted as necessary PLAN Scheduled Accu-Cheks before meals and at bedtime Hypoglycemia protocol Glargine 5 units at bedtime Hold home metformin and glipizide during admission Microcytic hypochromic anemia Chronicity unknown Alters hemoglobin A1c measurement PLAN Iron panel ordered Blood smear ordered Goal hemoglobin above 8 Acute kidney injury due to COVID-19 Baseline GFR is unknown GFR on admission is 55 Sodium 133 PLAN NS for now Encourage p.o. fluid intake Monitor urine output Check prior records for baseline GFR Renally dose medications and avoid nephrotoxic ones Repeat labs as needed Hypoalbuminemia Morbid obesity with BMI of 50.0-59.9, adult Patient endorses very poor eating habits Has minimal daily activity pivoting to and from his scooter PLAN Prealbumin level Vitamin D, B12 and folic acid levels ordered Hypothyroidism No acute issues identified On home levothyroxine 75 mcg PLAN Continue home levothyroxine Dyslipidemia Patient likely has undiagnosed coronary artery disease Identified Q waves on EKG in anterolateral leads and inferior leads Home management with atorvastatin 10, unsure if this covers his ASCVD risk PLAN New lipid panel Continue atorvastatin and aspirin for now Adjust doses as necessary Gout Denies any previous exacerbations On home allopurinol 400 daily PLAN Uric acid level Continue home allopurinol at 400 daily for now PROPHYLAXIS DVTLovenox twice daily GInot indicated CODE STATUS: FULL CODE, confirmed with patient that he change his mind from previous advanced directives DISPOSITION: Patient will be fully admitted to medical treatment with Remdesivir, dexamethasone and Actemra for now, depending on progress will start plasma and oxygen supplementation. Length of stay at least 5 days as per Remdesivir treatment regimen requirements. SOCIAL: Patient is a resident of [facility], lives with his there who is medical power of student services rep. Normally does pivot to his scooter but has not been able to do so in the past couple of days Not oxygen dependent at home PCP is Dr. Robert - Mortality Measure Prognosis:: Poor (COVID pneumonia in the setting of diabetes, morbid obesity, LUKAS and COPD)
[2020-05-09] MEDS: Dexamethasone 4 MG/ML SDV IVPUSH SCH (14:45)
[2020-05-09] MEDS: Enoxaparin 40 MG/0.4 ML Syringe SUBCUT SCH (14:46)
--- NOTE | 2020-05-09 19:46 | CR ---
Chest: Portable view of the chest was obtained. Comparison: Prior chest x-ray of 04/30/13. Increased central lung markings are seen. Heart is enlarged. No alveolar type densities are seen. Bony structures are grossly intact. Impression: 1. Increased central lung markings. Uncertain if this represents interstitial pneumonia/bronchitis or represents pulmonary vascular congestion. 2. Heart size is slightly enlarged. Diagnostic code #3 This report was dictated in MDT
[2020-05-09] MEDS ORDERED: Tocilizumab 400 MG/20 ML SDV IV SCH (21:00)
[2020-05-09] MEDS: Insulin Glarg,Human.Rec.Analog 100 Unit/ML SUBCUT SCH (21:22)
[2020-05-10] MEDS: Enoxaparin 40 MG/0.4 ML Syringe SUBCUT SCH ×4 (00:41→22:50)
[2020-05-10] MEDS: Sodium Chloride 0.9% 1,000 ML IV SCH ×2 (04:52→11:31)
[2020-05-10] MEDS ORDERED: Levothyroxine 25 MCG Tab PO SCH (10:00)
[2020-05-10] MEDS: cefTRIAXone 2 GM in Sodium Chloride 0.9% 100 ML IV SCH (10:24)
[2020-05-10] MEDS: Nystatin Topical Powder 15 GM Bottle TOP PRN ×2 (10:46→20:43)
[2020-05-10] MEDS: Azithromycin 500 MG in Sodium Chloride 0.9% 250 ML IV SCH (10:51)
[2020-05-10] MEDS: Insulin Lispro 100 Units/ML 3 ML Vial SUBCUT SCH ×4 (11:00→22:49)
[2020-05-10] MEDS: Levothyroxine 50 MCG Tab PO SCH (11:30)
[2020-05-10] MEDS: REMDESIVIR (EUA) 100 MG in Sodium Chloride 0.9% 100 ML IV SCH (11:30)
[2020-05-10] MEDS: Dexamethasone 4 MG/ML SDV IVPUSH SCH (11:31)
[2020-05-10] MEDS ORDERED: Sodium Chloride 0.9% 1,000 ML IV SCH (12:15)
[2020-05-10] MEDS: Spironolactone 25 MG Tab PO SCH (12:40)
[2020-05-10] MEDS: Furosemide 40 MG Tab PO SCH (12:40)
--- NOTE | 2020-05-10 18:23 | PCM.PN ---
- General Info Date of Service: 05/10/20 Admission Dx/Problem (Free Text): Admission Diagnosis/Problem Admission Diagnosis/Problem Viral pneumonia Subjective Update: Patient states he has less shortness of breath today, but he is requiring increasing amounts of oxygen.Appetite is still good and he had a bowel movement yesterday. Functional Status: Reports: Pain Controlled - Review of Systems General: Reports: No Symptoms. Denies: Fever HEENT: Reports: No Symptoms Pulmonary: Reports: Shortness of Breath Cardiovascular: Reports: No Symptoms Gastrointestinal: Reports: No Symptoms Musculoskeletal: Reports: No Symptoms Neurological: Reports: No Symptoms Psychiatric: Reports: No Symptoms - Patient Data Vitals - Most Recent: Last Vital Signs Temp 97.8 F 05/10/20 17:21 Pulse 88 05/10/20 10:54 Resp 24 H 05/10/20 17:21 BP 122/57 L 05/10/20 17:21 Pulse Ox 89 L 05/10/20 17:21 Weight - Most Recent: 172.773 kg I&O - Last 24 Hours: Intake & Output 05/10/20 05/10/20 05/10/20 06:59 14:59 22:59 Intake Total 2452 180 2250 Output Total 2950 1500 Balance -498 180 750 Lab Results Last 24 Hours: Laboratory Results - last 24 hr 05/09/20 05/10/20 05/10/20 Range/Units 21:19 05:21 05:21 WBC 1.73 L* (4.23-9.07) K/mm3 RBC 4.45 L (4.63-6.08) M/mm3 Hgb 13.5 L (13.7-17.5) gm/dl Hct 41.5 (40.1-51.0) % MCV 93.3 H (79.0-92.2) fl MCH 30.3 (25.7-32.2) pg MCHC 32.5 (32.2-35.5) g/dl RDW Std Deviation 44.7 H (35.1-43.9) fL Plt Count 171 (163-337) K/mm3 MPV 9.4 (9.4-12.3) fl Neutrophils % (Manual) 53 (40-60) % Band Neutrophils % 0 (0-10) % Lymphocytes % (Manual) 26 (20-40) % Atypical Lymphs % 0 % Monocytes % (Manual) 20 H (2-10) % Eosinophils % (Manual) 1 (0.8-7.0) % Basophils % (Manual) 0 L (0.2-1.2) Platelet Estimate Adequate RBC Morph Comment Normal PT 10.9 (9.7-11.7) SECONDS INR 1.02 D-Dimer, Quantitative 0.87 H (0.19-0.50) mg/L Sodium (136-145) mEq/L Potassium (3.5-5.1) mEq/L Chloride (98-107) mEq/L Carbon Dioxide (21-32) mEq/L Anion Gap (5-15) BUN (7-18) mg/dL Creatinine (0.7-1.3) mg/dL Est Cr Clr Drug Dosing mL/min Estimated GFR (MDRD) (>60) mL/min BUN/Creatinine Ratio (14-18) Glucose (80-115) mg/dL POC Glucose 218 H (80-115) mg/dL Calcium (8.5-10.1) mg/dL Phosphorus (2.6-4.7) mg/dL Magnesium (1.8-2.4) mg/dl Ferritin (26-388) ng/ml Lactate Dehydrogenase (85-227) U/L Creatine Kinase (39-308) U/L Troponin I (0.00-0.056) ng/mL C-Reactive Protein (<1.0) mg/dL NT-Pro-B Natriuret Pep (0-125) pg/mL Blood Type 05/10/20 05/10/20 05/10/20 Range/Units 05:21 05:21 05:21 WBC (4.23-9.07) K/mm3 RBC (4.63-6.08) M/mm3 Hgb (13.7-17.5) gm/dl Hct (40.1-51.0) % MCV (79.0-92.2) fl MCH (25.7-32.2) pg MCHC (32.2-35.5) g/dl RDW Std Deviation (35.1-43.9) fL Plt Count (163-337) K/mm3 MPV (9.4-12.3) fl Neutrophils % (Manual) (40-60) % Band Neutrophils % (0-10) % Lymphocytes % (Manual) (20-40) % Atypical Lymphs % % Monocytes % (Manual) (2-10) % Eosinophils % (Manual) (0.8-7.0) % Basophils % (Manual) (0.2-1.2) Platelet Estimate RBC Morph Comment PT (9.7-11.7) SECONDS INR D-Dimer, Quantitative (0.19-0.50) mg/L Sodium 138 (136-145) mEq/L Potassium 4.8 (3.5-5.1) mEq/L Chloride 102 (98-107) mEq/L Carbon Dioxide 26 (21-32) mEq/L Anion Gap 14.8 (5-15) BUN 24 H (7-18) mg/dL Creatinine 1.0 (0.7-1.3) mg/dL Est Cr Clr Drug Dosing 65.18 mL/min Estimated GFR (MDRD) > 60 (>60) mL/min BUN/Creatinine Ratio 24.0 H (14-18) Glucose 153 H (80-115) mg/dL POC Glucose (80-115) mg/dL Calcium 8.0 L (8.5-10.1) mg/dL Phosphorus 4.2 (2.6-4.7) mg/dL Magnesium 1.9 (1.8-2.4) mg/dl Ferritin 342 (26-388) ng/ml Lactate Dehydrogenase 303 H (85-227) U/L Creatine Kinase 9017 H (39-308) U/L Troponin I 0.039 (0.00-0.056) ng/mL C-Reactive Protein 16.4 H* (<1.0) mg/dL NT-Pro-B Natriuret Pep 251 H (0-125) pg/mL Blood Type 05/10/20 05/10/20 05/10/20 Range/Units 05:32 06:55 10:49 WBC (4.23-9.07) K/mm3 RBC (4.63-6.08) M/mm3 Hgb (13.7-17.5) gm/dl Hct (40.1-51.0) % MCV (79.0-92.2) fl MCH (25.7-32.2) pg MCHC (32.2-35.5) g/dl RDW Std Deviation (35.1-43.9) fL Plt Count (163-337) K/mm3 MPV (9.4-12.3) fl Neutrophils % (Manual) (40-60) % Band Neutrophils % (0-10) % Lymphocytes % (Manual) (20-40) % Atypical Lymphs % % Monocytes % (Manual) (2-10) % Eosinophils % (Manual) (0.8-7.0) % Basophils % (Manual) (0.2-1.2) Platelet Estimate RBC Morph Comment PT (9.7-11.7) SECONDS INR D-Dimer, Quantitative (0.19-0.50) mg/L Sodium (136-145) mEq/L Potassium (3.5-5.1) mEq/L Chloride (98-107) mEq/L Carbon Dioxide (21-32) mEq/L Anion Gap (5-15) BUN (7-18) mg/dL Creatinine (0.7-1.3) mg/dL Est Cr Clr Drug Dosing mL/min Estimated GFR (MDRD) (>60) mL/min BUN/Creatinine Ratio (14-18) Glucose (80-115) mg/dL POC Glucose 137 H 138 H (80-115) mg/dL Calcium (8.5-10.1) mg/dL Phosphorus (2.6-4.7) mg/dL Magnesium (1.8-2.4) mg/dl Ferritin (26-388) ng/ml Lactate Dehydrogenase (85-227) U/L Creatine Kinase (39-308) U/L Troponin I (0.00-0.056) ng/mL C-Reactive Protein (<1.0) mg/dL NT-Pro-B Natriuret Pep (0-125) pg/mL Blood Type O POSITIVE 05/10/20 Range/Units 17:55 WBC (4.23-9.07) K/mm3 RBC (4.63-6.08) M/mm3 Hgb (13.7-17.5) gm/dl Hct (40.1-51.0) % MCV (79.0-92.2) fl MCH (25.7-32.2) pg MCHC (32.2-35.5) g/dl RDW Std Deviation (35.1-43.9) fL Plt Count (163-337) K/mm3 MPV (9.4-12.3) fl Neutrophils % (Manual) (40-60) % Band Neutrophils % (0-10) % Lymphocytes % (Manual) (20-40) % Atypical Lymphs % % Monocytes % (Manual) (2-10) % Eosinophils % (Manual) (0.8-7.0) % Basophils % (Manual) (0.2-1.2) Platelet Estimate RBC Morph Comment PT (9.7-11.7) SECONDS INR D-Dimer, Quantitative (0.19-0.50) mg/L Sodium (136-145) mEq/L Potassium (3.5-5.1) mEq/L Chloride (98-107) mEq/L Carbon Dioxide (21-32) mEq/L Anion Gap (5-15) BUN (7-18) mg/dL Creatinine (0.7-1.3) mg/dL Est Cr Clr Drug Dosing mL/min Estimated GFR (MDRD) (>60) mL/min BUN/Creatinine Ratio (14-18) Glucose (80-115) mg/dL POC Glucose 215 H (80-115) mg/dL Calcium (8.5-10.1) mg/dL Phosphorus (2.6-4.7) mg/dL Magnesium (1.8-2.4) mg/dl Ferritin (26-388) ng/ml Lactate Dehydrogenase (85-227) U/L Creatine Kinase (39-308) U/L Troponin I (0.00-0.056) ng/mL C-Reactive Protein (<1.0) mg/dL NT-Pro-B Natriuret Pep (0-125) pg/mL Blood Type Alberto Results Last 24 Hours: Microbiology 05/09/20 09:35 Aerobic Blood Culture - Preliminary Blood - Venous NO GROWTH AFTER 1 DAY Anaerobic Blood Culture - Preliminary NO GROWTH AFTER 1 DAY 05/09/20 09:23 Aerobic Blood Culture - Preliminary Blood - Venous - Lab Draw NO GROWTH AFTER 1 DAY Anaerobic Blood Culture - Preliminary NO GROWTH AFTER 1 DAY Med Orders - Current: Current Medications Acetaminophen (Tylenol) 650 mg PO Q4H PRN PRN Reason: Pain (Mild 1-3)/fever Allopurinol (Zyloprim) 400 mg PO DAILY [facility] Aspirin (Aspirin) 81 mg PO DAILY [facility] Calcium Carbonate (Calcium Carbonate/Vitamin D 600 Mg-200 Unit) 1 tab PO DAILY [facility] Dexamethasone (Dexamethasone) 6 mg IVPUSH Q24H [facility] Last Admin: 05/10/20 11:31 Dose: 6 mg Documented by: Dextrose/Water (Dextrose 50% In Water) 50 ml IVPUSH ASDIRECTED PRN PRN Reason: Hypoglycemia Enoxaparin Sodium (Lovenox) 40 mg SUBCUT Q12H [facility] Last Admin: 05/10/20 11:30 Dose: 40 mg Documented by: Furosemide (Lasix) 40 mg PO DAILY [facility] Last Admin: 05/10/20 12:40 Dose: 40 mg Documented by: Hydralazine HCl (Apresoline) 10 mg IVPUSH Q2H PRN PRN Reason: Hypertension Remdesivir 100 mg/ Sodium (Chloride) 100 mls @ 100 mls/hr IV Q24H [facility] Stop: 05/13/20 12:59 Last Admin: 05/10/20 11:30 Dose: 100 mls/hr Documented by: Ceftriaxone Sodium 2 gm/ (Sodium Chloride) 100 mls @ 200 mls/hr IV Q24H [facility] Stop: 05/14/20 09:29 Last Admin: 05/10/20 10:24 Dose: 200 mls/hr Documented by: Azithromycin 500 mg/ Sodium (Chloride) 250 mls @ 250 mls/hr IV Q24H [facility] Stop: 05/12/20 10:29 Last Admin: 05/10/20 10:51 Dose: 250 mls/hr Documented by: Sodium Chloride (Normal Saline) 1,000 mls @ 50 mls/hr IV ASDIRECTED [facility] Insulin Glargine (Lantus) 5 unit SUBCUT BEDTIME [facility] Last Admin: 05/09/20 21:22 Dose: 5 units Documented by: Insulin Human Lispro (Humalog) 0 unit SUBCUT QIDACANDBED [facility]; Protocol Last Admin: 05/10/20 11:00 Dose: Not Given Documented by: Levothyroxine Sodium (Levothyroxine) 25 mcg PO SuTuThSa [facility] Levothyroxine Sodium (Synthroid) 50 mcg PO MoWeFr [facility] Last Admin: 05/10/20 11:30 Dose: 50 mcg Documented by: Nystatin (Nystop) 1 gm TOP QID PRN PRN Reason: excoriation Last Admin: 05/10/20 10:46 Dose: 1 applic Documented by: Ondansetron HCl (Zofran Odt) 4 mg PO Q6H PRN PRN Reason: nausea, able to take PO Ondansetron HCl (Zofran) 4 mg IV Q6H PRN PRN Reason: Nausea/Vomiting Simvastatin (Zocor) 20 mg PO DAILY [facility] Spironolactone (Aldactone) 25 mg PO DAILY [facility] Last Admin: 05/10/20 12:40 Dose: 25 mg Documented by: Discontinued Medications Acetaminophen (Tylenol) 975 mg PO ONETIME ONE Stop: 05/09/20 08:57 Last Admin: 05/09/20 09:34 Dose: 975 mg Documented by: Sodium Chloride (Normal Saline) 1,000 mls @ 150 mls/hr IV ASDIRECTED [facility] Last Admin: 05/10/20 11:31 Dose: 150 mls/hr Documented by: Remdesivir 200 mg/ Sodium (Chloride) 250 mls @ 250 mls/hr IV ONETIME ONE Stop: 05/09/20 12:59 Last Admin: 05/09/20 11:47 Dose: 250 mls/hr Documented by: Tocilizumab 800 mg/ Sodium (Chloride) 100 mls @ 100 mls/hr IV Q12H [facility] Stop: 05/10/20 01:59 Tocilizumab 800 mg/ Sodium (Chloride) 100 mls @ 100 mls/hr IV Q12H [facility] Stop: 05/10/20 01:59 Last Admin: 05/10/20 00:42 Dose: 100 mls/hr Documented by: Levothyroxine Sodium (Levothyroxine) 50 mcg PO MoWeFr [facility] Last Admin: 05/10/20 10:26 Dose: Not Given Documented by: Tocilizumab (Actemra) 800 mg IV Q12HR [facility] Stop: 05/10/20 09:01 - Exam Quality Assessment: Supplemental Oxygen (5 L) General: Alert, Oriented HEENT: Pupils Equal, Mucous Membr. Moist/August Neck: Supple Lungs: Decreased Breath Sounds. No: Normal Respiratory Effort (Slight increase in respiratory rate and effort) Cardiovascular: Regular Rate, Regular Rhythm GI/Abdominal Exam: Normal Bowel Sounds, Soft, Non-Tender, No Distention (M orbidly obese) Peripheral Pulses: 1+: Posterior Tibial (L), Posterior Tibial (R), Dorsalis Pedis (L), Dorsalis Pedis (R) Skin: Warm, Dry, Intact Psy/Mental Status: Alert, Normal Affect, Normal Mood Sepsis Event Note - Evaluation Sepsis Screening Result: No Definite Risk - Focused Exam Vital Signs: Vital Signs Temp Temp Pulse Resp BP BP Pulse Ox 05/10/20 17:21 97.8 F 24 H 122/57 L 89 L 05/10/20 10:54 98.4 F 88 20 121/87 91 L - Problem List & Annotations (1) Acute hypoxemic respiratory failure due to COVID-19 SNOMED Code(s): 011043976 Code(s): U07.1 - COVID-19; J96.01 - ACUTE RESPIRATORY FAILURE WITH HYPOXIA Status: Acute Current Visit: Yes (2) Acute kidney injury due to COVID-19 SNOMED Code(s): 817031268 Code(s): U07.1 - COVID-19; N17.9 - ACUTE KIDNEY FAILURE, UNSPECIFIED Status: Acute Current Visit: Yes (3) COPD (chronic obstructive pulmonary disease) SNOMED Code(s): 31037428 Code(s): J44.9 - CHRONIC OBSTRUCTIVE PULMONARY DISEASE, UNSPECIFIED Status: Acute Current Visit: Yes (4) Diabetes mellitus SNOMED Code(s): 06026956 Code(s): E11.9 - TYPE 2 DIABETES MELLITUS WITHOUT COMPLICATIONS Status: Acute Current Visit: Yes (5) Morbid obesity with BMI of 50.0-59.9, adult SNOMED Code(s): 257637992, 19455086022496 Code(s): E66.01 - MORBID (SEVERE) OBESITY DUE TO EXCESS CALORIES; Z68.43 - BODY MASS INDEX (BMI) 50.0-59.9, ADULT Status: Acute Current Visit: Yes (6) Pneumonia due to COVID-19 virus SNOMED Code(s): 170266590 Code(s): U07.1 - COVID-19; J12.89 - OTHER VIRAL PNEUMONIA Status: Acute Current Visit: Yes - Problem List Review Problem List Initiated/Reviewed/Updated: Yes - My Orders Last 24 Hours: My Active Orders 05/10/20 05:32 ABO/RH TYPE [BBK] Routine FRESH FROZEN PLASMA [BBK] Routine 05/10/20 08:20 OT Evaluation and Treatment [CONS] Routine PT Evaluation and Treatment [CONS] Routine Nystatin [Nystop] 1 gm TOP QID PRN 05/10/20 09:00 cefTRIAXone [Rocephin] 2 gm Sodium Chloride 0.9% [Normal Saline] 100 ml IV Q24H 05/10/20 09:30 Azithromycin [Zithromax] 500 mg Sodium Chloride 0.9% [Normal Saline] 250 ml IV Q24H 05/10/20 10:08 Levothyroxine [Synthroid] 50 mcg PO MoWeFr 05/10/20 11:00 Insulin Lispro [HumaLOG] See Protocol SUBCUT QIDACANDBED 05/10/20 12:15 Furosemide [Lasix] 40 mg PO DAILY Sodium Chloride 0.9% [Normal Saline] 1,000 ml IV ASDIRECTED Spironolactone [Aldactone] 25 mg PO DAILY 05/10/20 12:35 Verify Patient Consent Obtain [RC] ASDIRECTED Transfuse Fresh Frozen Plasma [COMM] Routine 05/10/20 16:00 Patient Status [ADT] Routine 05/11/20 09:00 Aspirin 81 mg PO DAILY Calcium Carbonate/Vitamin D3 [Calcium Carbonate/Vitamin D 600 MG-200 Unit] 1 tab PO DAILY Simvastatin [Zocor] 20 mg PO DAILY allopurinoL [Zyloprim] 400 mg PO DAILY 05/11/20 10:00 [facility]:: 05/[facility]/2020 Brought in via EMS from [place] for worsening shortness of breath, hypoxemia and 2 falls associated with [place] and chills last night Vital signs Prior to transfer: Rate 128, respiratory rate 38, blood pressure 134/50 temp 100.8, felt 70% on room air Upon arrival to ED: Heart rate 113, blood pressure 144/123 (130), temperature 101.5, pulse ox 82% on room air (went up to 92% on 3 L) Placed on nasal cannula once in the emergency department did stabilize pulse ox Lab results CBC: WBC 6.8, hemoglobin 13 (macrocytic hypochromic), platelets 212 Chemistry: Sodium 133, potassium 4, chloride 95, magnesium 1.9, CO2 27, GFR 55, glucose 126 LFTs: Total bilirubin 0.4, alkaline phosphatase 46, AST 43, ALT 52, total protein 7.1, albumin 3.2 D-dimer 0.85 Lactate 0.9 Ferritin 243 proBNP 226 CRP 14 ABGs: 7.38/40 5.1/80 05/16 6.1/95.1 on 3 L nasal cannula Hemoglobin A1c 6.7 COVID 19 + Other results: Chest x-ray: Bilateral patchy infiltrates throughout lung [place], diminished lung size, no pleural effusions EKG: Left axis deviation, Q waves in inferior and anterior leads (III, aVF, V4 through V6) 05/10/2020 * Continued worsening oxygenation secondary to COVID-19. * Patient is at very high risk for worsening and severe symptoms secondary to his underlying medical conditions including: Diabetes, hypertension, and morbid obesity. * His creatinine kinase is significantly elevated (over 9000) for unknown reason. * Vital signs stable, T-max 101.5 yesterday morning, * White blood cell count decreased to 1.7. * CRP slightly increased at 16.4. * Troponin 0.039. * D-dimer is 0.87. * Blood sugars ranging from 218 down to 137 * Anticipate increasing blood sugars secondary to dexamethasone * started on remdesivir, dexamethasone, Actemra yesterday - Plan Plan:: Pneumonia due to COVID-19 virus Acute hypoxemic respiratory failure due to COVID-19 Leukopenia Pneumonia PLAN * Remdesivir 4/5 days * dexamethasone 6 mg daily to complete 10 days -switch to oral * Actemra x2 doses * Ordered 2 units of convalescent plasma COPD (chronic obstructive pulmonary disease) COPD, not oxygen dependent at home Only home treatment is albuterol HFA twice daily PLAN Monitor oxygenation Goal pulse ox above 88 albuterol prn Obstructive sleep apnea Endorses full compliance with nightly CPAP for [place] Pressure is 8, last adjustment about a year ago PLAN Called [facility] to bring home CPAP Hypertension Blood pressure control is unable to be determined as patient was short of breath and in distress with initial vital signs Home management with amlodipine 10 and losartan 100 PLAN Continue home amlodipine and losartan PRN hydralazine for SBP above 200 and DBP above 100 Diabetes mellitus, HbA1c6.7% Diabetes appears to be controlled A1c of 6.7, might be a little bit different due to patient being anemic Glucose at home ranges between 125 and 145 as per patient Home management with metformin and glipizide Has never been on insulin Patient will be started on dexamethasone as per COVID management for which low dose long-acting insulin will be started and adjusted as necessary PLAN Scheduled Accu-Cheks before meals and at bedtime Hypoglycemia protocol Glargine 5 units at bedtime Hold home metformin and glipizide during admission Microcytic hypochromic anemia Chronicity unknown Alters hemoglobin A1c measurement PLAN Iron panel ordered Blood smear ordered Goal hemoglobin above 8 Acute kidney injury due to COVID-19 Baseline GFR is unknown GFR on admission is 55 Sodium 133 PLAN NS for now Encourage p.o. fluid intake Monitor urine output Check prior records for baseline GFR Renally dose medications and avoid nephrotoxic ones Repeat labs as needed Hypoalbuminemia Morbid obesity with BMI of 50.0-59.9, adult Patient endorses very poor eating habits Has minimal daily activity pivoting to and from his scooter PLAN * Prealbumin level Hypothyroidism No acute issues identified On home levothyroxine 75 mcg PLAN * Continue home levothyroxine Dyslipidemia Patient likely has undiagnosed coronary artery disease * Identified Q waves on EKG in anterolateral leads and inferior leads Home management with atorvastatin 10, unsure if this covers his ASCVD risk PLAN * New lipid panel * Continue atorvastatin and aspirin for now Gout Denies any previous exacerbations On home allopurinol 400 daily PLAN Continue home allopurinol at 400 daily for now PROPHYLAXIS DVTLovenox twice daily GInot indicated CODE STATUS: FULL CODE, confirmed with patient that he change his mind from previous advanced directives DISPOSITION: Patient will be fully admitted to medical treatment with Remdesivir, d examethasone and Actemra for now, depending on progress will start plasma and oxygen supplementation. Length of stay at least 5 days as per Remdesivir treatment regimen requirements. SOCIAL: Patient is a resident of [place], lives with his there who is medical power of document review attorney. Normally does pivot to his scooter but has not been able to do so in the past couple of days Not oxygen dependent at home PCP is Dr. Robert
[2020-05-10] MEDS ORDERED: Albuterol 6.7 GM Inhaler INH PRN (18:39)
[2020-05-10] MEDS: Insulin Glarg,Human.Rec.Analog 100 Unit/ML SUBCUT SCH (20:40)
[2020-05-10] MEDS ORDERED: Furosemide 40 MG/4 ML VIAL IVPUSH ONE (21:15)
[2020-05-11] MEDS: Insulin Lispro 100 Units/ML 3 ML Vial SUBCUT SCH ×4 (06:51→21:43)
[2020-05-11] MEDS: Allopurinol 100 MG Tab PO SCH (09:28)
[2020-05-11] MEDS: Aspirin 81 MG Tab.Chew PO SCH (09:28)
[2020-05-11] MEDS: Spironolactone 25 MG Tab PO SCH (09:28)
[2020-05-11] MEDS: Losartan 100 MG Tab PO SCH (09:29)
[2020-05-11] MEDS: Simvastatin 20 MG Tab PO SCH (09:29)
[2020-05-11] MEDS: Dexamethasone 4 MG Tab PO SCH (09:31)
[2020-05-11] MEDS: Calcium Carbonate/Vitamin D3 600 MG-200 Units Tab PO SCH (09:32)
[2020-05-11] MEDS: cefTRIAXone 2 GM in Sodium Chloride 0.9% 100 ML IV SCH (09:33)
[2020-05-11] MEDS: Furosemide 40 MG Tab PO SCH (09:33)
[2020-05-11] MEDS: Azithromycin 500 MG in Sodium Chloride 0.9% 250 ML IV SCH (10:27)
[2020-05-11] MEDS: Enoxaparin 40 MG/0.4 ML Syringe SUBCUT SCH ×2 (10:34→21:44)
[2020-05-11] MEDS ORDERED: Sodium Chloride 0.9% 250 ML ONE (11:03)
[2020-05-11] MEDS: REMDESIVIR (EUA) 100 MG in Sodium Chloride 0.9% 100 ML IV SCH (11:43)
--- NOTE | 2020-05-11 11:56 | CR ---
Chest: Portable view of the chest was obtained. Comparison: Prior chest x-ray of 05/09/20. Increasing parenchymal densities within the left chest and right chest from prior study. Heart is enlarged. Bony structures are grossly intact. Impression: 1. Worsening parenchymal densities on both sides of the chest. Diagnostic code #3 This report was dictated in MDT
[2020-05-11] MEDS: Levothyroxine 25 MCG Tab PO SCH (13:50)
[2020-05-11] MEDS ORDERED: Magnesium Sulfate/Water 2 GM in Premix Bag 1 BAG IV ONE (15:30)
--- NOTE | 2020-05-11 15:35 | PCM.PN ---
- General Info Date of Service: 05/11/20 Admission Dx/Problem (Free Text): Admission Diagnosis/Problem Admission Diagnosis/Problem Viral pneumonia Subjective Update: Patient was moved to the ICU yesterday because of worsening oxygenation. Patient was placed on high flow nasal cannula at 80% FiO2 and 20 L/min. Patient states that he feels relatively well at rest, but does get short of breath with activity easily. Nursing noted that he would drop into the 80s with any activity and without his oxygen on he would drop to 70 with in 30 seconds. Patient did receive his first unit of convalescent plasma last night. Patient still has a very good appetite. Functional Status: Reports: Pain Controlled - Review of Systems General: Reports: No Symptoms HEENT: Reports: No Symptoms Pulmonary: Reports: Shortness of Breath Cardiovascular: Reports: No Symptoms Musculoskeletal: Reports: No Symptoms - Patient Data Vitals - Most Recent: Last Vital Signs Temp 98 F 05/11/20 12:00 Pulse 95 05/11/20 12:00 Resp 22 H 05/11/20 12:00 BP 118/67 05/11/20 12:00 Pulse Ox 82 L 05/11/20 12:10 Weight - Most Recent: 172.365 kg I&O - Last 24 Hours: Intake & Output 05/11/20 05/11/20 05/11/20 06:59 14:59 22:59 Intake Total 300 587 Output Total 5489 7261 Balance -4535 -9891 Imaging Impressions - Last 24 Hours: Chest x-ray shows worsening bilateral infiltrates Lab Results Last 24 Hours: Laboratory Results - last 24 hr 05/10/20 05/10/20 05/10/20 Range/Units 05:32 05:32 17:55 WBC (4.23-9.07) K/mm3 RBC (4.63-6.08) M/mm3 Hgb (13.7-17.5) gm/dl Hct (40.1-51.0) % MCV (79.0-92.2) fl MCH (25.7-32.2) pg MCHC (32.2-35.5) g/dl RDW Std Deviation (35.1-43.9) fL Plt Count (163-337) K/mm3 MPV (9.4-12.3) fl Neut % (Auto) (34.0-67.9) % Lymph % (Auto) (21.8-53.1) % Haakon % (Auto) (5.3-12.2) % Eos % (Auto) (0.8-7.0) Baso % (Auto) (0.1-1.2) % Neut # (Auto) (1.78-5.38) K/mm3 Lymph # (Auto) (1.32-3.57) K/mm3 Haakon # (Auto) (0.30-0.82) K/mm3 Eos # (Auto) (0.04-0.54) K/mm3 Baso # (Auto) (0.01-0.08) K/mm3 Manual Slide Review D-Dimer, Quantitative (0.19-0.50) mg/L Sodium (136-145) mEq/L Potassium (3.5-5.1) mEq/L Chloride (98-107) mEq/L Carbon Dioxide (21-32) mEq/L Anion Gap (5-15) BUN (7-18) mg/dL Creatinine (0.7-1.3) mg/dL Est Cr Clr Drug Dosing mL/min Estimated GFR (MDRD) (>60) mL/min BUN/Creatinine Ratio (14-18) Glucose (80-115) mg/dL POC Glucose 215 H (80-115) mg/dL Calcium (8.5-10.1) mg/dL Phosphorus (2.6-4.7) mg/dL Magnesium (1.8-2.4) mg/dl Total Bilirubin (0.2-1.0) mg/dL AST (15-37) U/L ALT (16-63) U/L Alkaline Phosphatase (46-116) U/L C-Reactive Protein (<1.0) mg/dL Total Protein (6.4-8.2) g/dl Albumin (3.4-5.0) g/dl Globulin gm/dL Albumin/Globulin Ratio (1-2) Prealbumin 12.7 L (17.0-34.0) mg/dL Blood Type O POSITIVE 05/10/20 05/11/20 05/11/20 Range/Units 20:33 06:49 09:23 WBC 2.96 L (4.23-9.07) K/mm3 RBC 5.08 (4.63-6.08) M/mm3 Hgb 15.0 D (13.7-17.5) gm/dl Hct 46.8 (40.1-51.0) % MCV 92.1 (79.0-92.2) fl MCH 29.5 (25.7-32.2) pg MCHC 32.1 L (32.2-35.5) g/dl RDW Std Deviation 45.0 H (35.1-43.9) fL Plt Count 223 (163-337) K/mm3 MPV 9.2 L (9.4-12.3) fl Neut % (Auto) 61.2 (34.0-67.9) % Lymph % (Auto) 23.6 (21.8-53.1) % Haakon % (Auto) 15.2 H (5.3-12.2) % Eos % (Auto) 0 L (0.8-7.0) Baso % (Auto) 0.0 L (0.1-1.2) % Neut # (Auto) 1.81 (1.78-5.38) K/mm3 Lymph # (Auto) 0.70 L (1.32-3.57) K/mm3 Haakon # (Auto) 0.45 (0.30-0.82) K/mm3 Eos # (Auto) 0.00 L (0.04-0.54) K/mm3 Baso # (Auto) 0.00 L (0.01-0.08) K/mm3 Manual Slide Review Abnormal smear D-Dimer, Quantitative (0.19-0.50) mg/L Sodium (136-145) mEq/L Potassium (3.5-5.1) mEq/L Chloride (98-107) mEq/L Carbon Dioxide (21-32) mEq/L Anion Gap (5-15) BUN (7-18) mg/dL Creatinine (0.7-1.3) mg/dL Est Cr Clr Drug Dosing mL/min Estimated GFR (MDRD) (>60) mL/min BUN/Creatinine Ratio (14-18) Glucose (80-115) mg/dL POC Glucose 302 H 153 H (80-115) mg/dL Calcium (8.5-10.1) mg/dL Phosphorus (2.6-4.7) mg/dL Magnesium (1.8-2.4) mg/dl Total Bilirubin (0.2-1.0) mg/dL AST (15-37) U/L ALT (16-63) U/L Alkaline Phosphatase (46-116) U/L C-Reactive Protein (<1.0) mg/dL Total Protein (6.4-8.2) g/dl Albumin (3.4-5.0) g/dl Globulin gm/dL Albumin/Globulin Ratio (1-2) Prealbumin (17.0-34.0) mg/dL Blood Type 05/11/20 05/11/20 05/11/20 Range/Units 09:23 09:23 11:54 WBC (4.23-9.07) K/mm3 RBC (4.63-6.08) M/mm3 Hgb (13.7-17.5) gm/dl Hct (40.1-51.0) % MCV (79.0-92.2) fl MCH (25.7-32.2) pg MCHC (32.2-35.5) g/dl RDW Std Deviation (35.1-43.9) fL Plt Count (163-337) K/mm3 MPV (9.4-12.3) fl Neut % (Auto) (34.0-67.9) % Lymph % (Auto) (21.8-53.1) % Haakon % (Auto) (5.3-12.2) % Eos % (Auto) (0.8-7.0) Baso % (Auto) (0.1-1.2) % Neut # (Auto) (1.78-5.38) K/mm3 Lymph # (Auto) (1.32-3.57) K/mm3 Haakon # (Auto) (0.30-0.82) K/mm3 Eos # (Auto) (0.04-0.54) K/mm3 Baso # (Auto) (0.01-0.08) K/mm3 Manual Slide Review D-Dimer, Quantitative 1.05 H (0.19-0.50) mg/L Sodium 140 (136-145) mEq/L Potassium 4.3 (3.5-5.1) mEq/L Chloride 101 (98-107) mEq/L Carbon Dioxide 30 (21-32) mEq/L Anion Gap 13.3 (5-15) BUN 28 H (7-18) mg/dL Creatinine 1.2 (0.7-1.3) mg/dL Est Cr Clr Drug Dosing 54.32 mL/min Estimated GFR (MDRD) > 60 (>60) mL/min BUN/Creatinine Ratio 23.3 H (14-18) Glucose 146 H (80-115) mg/dL POC Glucose 161 H (80-115) mg/dL Calcium 8.4 L (8.5-10.1) mg/dL Phosphorus 3.4 (2.6-4.7) mg/dL Magnesium 1.7 L (1.8-2.4) mg/dl Total Bilirubin 0.2 (0.2-1.0) mg/dL AST 273 H (15-37) U/L ALT 92 H (16-63) U/L Alkaline Phosphatase 46 (46-116) U/L C-Reactive Protein 6.6 H* (<1.0) mg/dL Total Protein 7.4 (6.4-8.2) g/dl Albumin 3.1 L (3.4-5.0) g/dl Globulin 4.3 gm/dL Albumin/Globulin Ratio 0.7 L (1-2) Prealbumin (17.0-34.0) mg/dL Blood Type Alberto Results Last 24 Hours: Microbiology 05/09/20 09:35 Aerobic Blood Culture - Preliminary Blood - Venous NO GROWTH AFTER 2 DAYS Anaerobic Blood Culture - Preliminary NO GROWTH AFTER 2 DAYS 05/09/20 09:23 Aerobic Blood Culture - Preliminary Blood - Venous - Lab Draw NO GROWTH AFTER 2 DAYS Anaerobic Blood Culture - Preliminary NO GROWTH AFTER 2 DAYS Med Orders - Current: Current Medications Acetaminophen (Tylenol) 650 mg PO Q4H PRN PRN Reason: Pain (Mild 1-3)/fever Albuterol (Proventil Hfa) 0 gm INH Q2H PRN PRN Reason: Wheezing Allopurinol (Zyloprim) 400 mg PO DAILY [facility] Last Admin: 05/11/20 09:28 Dose: 400 mg Documented by: Aspirin (Aspirin) 81 mg PO DAILY [facility] Last Admin: 05/11/20 09:28 Dose: 81 mg Documented by: Calcium Carbonate (Calcium Carbonate/Vitamin D 600 Mg-200 Unit) 1 tab PO DAILY [facility] Last Admin: 05/11/20 09:32 Dose: 1 tab Documented by: Dexamethasone (Dexamethasone) 6 mg PO DAILY [facility] Stop: 05/18/20 09:01 Last Admin: 05/11/20 09:31 Dose: 6 mg Documented by: Dextrose/Water (Dextrose 50% In Water) 50 ml IVPUSH ASDIRECTED PRN PRN Reason: Hypoglycemia Enoxaparin Sodium (Lovenox) 40 mg SUBCUT BID [facility] Last Admin: 05/11/20 10:34 Dose: 40 mg Documented by: Furosemide (Lasix) 40 mg PO DAILY [facility] Last Admin: 05/11/20 09:33 Dose: 40 mg Documented by: Hydralazine HCl (Apresoline) 10 mg IVPUSH Q2H PRN PRN Reason: Hypertension Remdesivir 100 mg/ Sodium (Chloride) 100 mls @ 100 mls/hr IV Q24H [facility] Stop: 05/13/20 12:59 Last Admin: 05/11/20 11:43 Dose: 100 mls/hr Documented by: Ceftriaxone Sodium 2 gm/ (Sodium Chloride) 100 mls @ 200 mls/hr IV Q24H [facility] Stop: 05/14/20 09:29 Last Admin: 05/11/20 09:33 Dose: 200 mls/hr Documented by: Azithromycin 500 mg/ Sodium (Chloride) 250 mls @ 250 mls/hr IV Q24H [facility] Stop: 05/12/20 10:29 Last Admin: 05/11/20 10:27 Dose: 250 mls/hr Documented by: Magnesium Sulfate 2 gm/ Premix 50 mls @ 25 mls/hr IV ONETIME ONE Stop: 05/11/20 17:29 Insulin Glargine (Lantus) 5 unit SUBCUT BEDTIME [facility] Last Admin: 05/10/20 20:40 Dose: 5 units Documented by: Insulin Human Lispro (Humalog) 0 unit SUBCUT QIDACANDBED [facility]; Protocol Last Admin: 05/11/20 11:55 Dose: 1 units Documented by: Levothyroxine Sodium (Levothyroxine) 25 mcg PO SuTuThSa [facility] Last Admin: 05/11/20 13:50 Dose: 25 mcg Documented by: Levothyroxine Sodium (Synthroid) 50 mcg PO MoWeFr [facility] Last Admin: 05/10/20 11:30 Dose: 50 mcg Documented by: Losartan Potassium (Cozaar) 100 mg PO DAILY [facility] Last Admin: 05/11/20 09:29 Dose: 100 mg Documented by: Nystatin (Nystop) 1 gm TOP QID PRN PRN Reason: excoriation Last Admin: 05/10/20 20:43 Dose: 1 applic Documented by: Ondansetron HCl (Zofran Odt) 4 mg PO Q6H PRN PRN Reason: nausea, able to take PO Ondansetron HCl (Zofran) 4 mg IV Q6H PRN PRN Reason: Nausea/Vomiting Simvastatin (Zocor) 20 mg PO DAILY [facility] Last Admin: 05/11/20 09:29 Dose: 20 mg Documented by: Spironolactone (Aldactone) 25 mg PO DAILY [facility] Last Admin: 05/11/20 09:28 Dose: 25 mg Documented by: Discontinued Medications Acetaminophen (Tylenol) 975 mg PO ONETIME ONE Stop: 05/09/20 08:57 Last Admin: 05/09/20 09:34 Dose: 975 mg Documented by: Dexamethasone (Dexamethasone) 6 mg IVPUSH Q24H [facility] Last Admin: 05/10/20 11:31 Dose: 6 mg Documented by: Enoxaparin Sodium (Lovenox) 40 mg SUBCUT Q12H [facility] Last Admin: 05/10/20 22:50 Dose: Not Given Documented by: Furosemide (Lasix) 40 mg IVPUSH ONETIME ONE Stop: 05/10/20 21:16 Last Admin: 05/10/20 21:35 Dose: 40 mg Documented by: Sodium Chloride (Normal Saline) 1,000 mls @ 150 mls/hr IV ASDIRECTED [facility] Last Admin: 05/10/20 11:31 Dose: 150 mls/hr Documented by: Remdesivir 200 mg/ Sodium (Chloride) 250 mls @ 250 mls/hr IV ONETIME ONE Stop: 05/09/20 12:59 Last Admin: 05/09/20 11:47 Dose: 250 mls/hr Documented by: Tocilizumab 800 mg/ Sodium (Chloride) 100 mls @ 100 mls/hr IV Q12H [facility] Stop: 05/10/20 01:59 Tocilizumab 800 mg/ Sodium (Chloride) 100 mls @ 100 mls/hr IV Q12H [facility] Stop: 05/10/20 01:59 Last Admin: 05/10/20 00:42 Dose: 100 mls/hr Documented by: Sodium Chloride (Normal Saline) 1,000 mls @ 50 mls/hr IV ASDIRECTED [facility] Sodium Chloride (Normal Saline) Confirm Administered Dose 250 mls @ as directed .ROUTE .STK-MED ONE Stop: 05/11/20 11:04 Levothyroxine Sodium (Levothyroxine) 50 mcg PO MoWeFr [facility] Last Admin: 05/10/20 10:26 Dose: Not Given Documented by: Tocilizumab (Actemra) 800 mg IV Q12HR [facility] Stop: 05/10/20 09:01 - Exam Quality Assessment: Supplemental Oxygen General: Alert, Oriented HEENT: Pupils Equal, Mucous Membr. Moist/Bonita Neck: Supple Lungs: Decreased Breath Sounds. No: Normal Respiratory Effort (Mildly increased respiratory rate and effort worse with activity) GI/Abdominal Exam: Normal Bowel Sounds, Soft, Non-Tender, No Distention (Morbidly obese) Extremities: Normal Capillary Refill, Pedal Edema (2-3+) Skin: Warm, Dry, Intact Neurological: No New Focal Deficit Psy/Mental Status: Alert, Normal Affect, Normal Mood Sepsis Event Note - Evaluation Sepsis Screening Result: Sepsis Risk - Focused Exam Vital Signs: Vital Signs Temp Temp Pulse Resp BP BP Pulse Ox 05/11/20 12:10 82 L 05/11/20 12:01 86 L 05/11/20 12:00 98 F 95 22 H 118/67 118/67 87 L 05/11/20 11:59 87 L 05/11/20 11:50 89 L 05/11/20 11:47 98 F 92 20 120/70 05/11/20 11:45 120/70 91 L 05/11/20 11:44 88 L 05/11/20 11:40 89 L 05/11/20 11:35 98.3 F 93 22 H 111/67 05/11/20 11:34 111/67 88 L 05/11/20 11:33 88 L 05/11/20 11:30 86 L 05/11/20 11:20 85 L 05/11/20 11:10 90 L 05/11/20 11:00 88 L 05/11/20 10:50 90 L 05/11/20 10:40 88 L 05/11/20 10:30 88 L 05/11/20 10:20 89 L 05/11/20 10:10 89 L 05/11/20 10:00 90 L 05/11/20 09:50 88 L 05/11/20 09:40 87 L 05/11/20 09:32 05/11/20 09:31 109/65 88 L 05/11/20 09:30 89 L 05/11/20 09:29 109/65 05/11/20 09:20 75 L 05/11/20 09:10 85 L 05/11/20 09:00 84 L 05/11/20 08:50 84 L 05/11/20 08:40 83 L 05/11/20 08:30 84 L 05/11/20 08:20 83 L 05/11/20 08:10 92 L 05/11/20 08:01 119/56 L 90 L 05/11/20 08:00 88 L 05/11/20 07:50 87 L 05/11/20 07:40 87 L 05/11/20 07:30 88 L 05/11/20 07:00 85 L 05/11/20 06:32 146/91 H 85 L 05/11/20 06:31 86 L 05/11/20 06:11 162/83 H 84 L 05/11/20 06:10 85 L 05/11/20 06:09 166/97 H 81 L 05/11/20 06:08 82 L 05/11/20 06:05 74 L 05/11/20 05:00 86 L 05/11/20 04:00 92 L Pulse Ox 05/11/20 12:10 05/11/20 12:01 05/11/20 12:00 05/11/20 11:59 05/11/20 11:50 05/11/20 11:47 05/11/20 11:45 05/11/20 11:44 05/11/20 11:40 05/11/20 11:35 05/11/20 11:34 05/11/20 11:33 05/11/20 11:30 05/11/20 11:20 05/11/20 11:10 05/11/20 11:00 05/11/20 10:50 05/11/20 10:40 05/11/20 10:30 05/11/20 10:20 05/11/20 10:10 05/11/20 10:00 05/11/20 09:50 05/11/20 09:40 05/11/20 09:32 88 L 05/11/20 09:31 05/11/20 09:30 05/11/20 09:29 05/11/20 09:20 05/11/20 09:10 05/11/20 09:00 05/11/20 08:50 05/11/20 08:40 05/11/20 08:30 05/11/20 08:20 05/11/20 08:10 05/11/20 08:01 05/11/20 08:00 05/11/20 07:50 05/11/20 07:40 05/11/20 07:30 05/11/20 07:00 05/11/20 06:32 05/11/20 06:31 05/11/20 06:11 05/11/20 06:10 05/11/20 06:09 05/11/20 06:08 05/11/20 06:05 05/11/20 05:00 05/11/20 04:00 - Problem List & Annotations (1) Acute hypoxemic respiratory failure due to COVID-19 SNOMED Code(s): 673314470 Code(s): U07.1 - COVID-19; J96.01 - ACUTE RESPIRATORY FAILURE WITH HYPOXIA Status: Acute Current Visit: Yes (2) Acute kidney injury due to COVID-19 SNOMED Code(s): 268774851 Code(s): U07.1 - COVID-19; N17.9 - ACUTE KIDNEY FAILURE, UNSPECIFIED Status: Acute Current Visit: Yes (3) COPD (chronic obstructive pulmonary disease) SNOMED Code(s): 56832868 Code(s): J44.9 - CHRONIC OBSTRUCTIVE PULMONARY DISEASE, UNSPECIFIED Status: Acute Current Visit: Yes (4) Diabetes mellitus SNOMED Code(s): 14898161 Code(s): E11.9 - TYPE 2 DIABETES MELLITUS WITHOUT COMPLICATIONS Status: Acute Current Visit: Yes (5) Morbid obesity with BMI of 50.0-59.9, adult SNOMED Code(s): 309631753, 32324795375253 Code(s): E66.01 - MORBID (SEVERE) OBESITY DUE TO EXCESS CALORIES; Z68.43 - BODY MASS INDEX (BMI) 50.0-59.9, ADULT Status: Acute Current Visit: Yes (6) Pneumonia due to COVID-19 virus SNOMED Code(s): 443889890 Code(s): U07.1 - COVID-19; J12.89 - OTHER VIRAL PNEUMONIA Status: Acute Current Visit: Yes - Problem List Review Problem List Initiated/Reviewed/Updated: Yes - My Orders Last 24 Hours: My Active Orders 05/10/20 16:00 Patient Status [ADT] Routine 05/10/20 18:39 RT Post Treatment Assessment [RC] Click to Edit RT Pre-Treatment Assessment [RC] Click to Edit Albuterol [Proventil HFA] See Dose Instructions INH Q2H PRN 05/10/20 21:15 Communication Order [RC] ASDIRECTED Perez Catheter Insertion [Insert Urinary Catheter] [OM.PC] Q24H Urinary Catheter Assessment [RC] Q4H 05/11/20 09:00 Aspirin 81 mg PO DAILY Calcium Carbonate/Vitamin D3 [Calcium Carbonate/Vitamin D 600 MG-200 Unit] 1 tab PO DAILY Losartan [Cozaar] 100 mg PO DAILY Simvastatin [Zocor] 20 mg PO DAILY allopurinoL [Zyloprim] 400 mg PO DAILY dexAMETHasone 6 mg PO DAILY 05/11/20 10:00 Levothyroxine 25 mcg PO SuTuThSa 05/11/20 15:28 Magnesium Sulfate/Water [Magnesium Sulfate in Water Premix] 2 gm Premix Bag 1 bag IV ONETIME 05/12/20 05:11 C-REACTIVE PROTEIN [CHEM] AM CBC WITH AUTO DIFF [HEME] AM CMP [COMPREHENSIVE METABOLIC PN,CMP] [CHEM] AM D Dimer [D-DIMER QUANTITATIVE] [COAG] AM MAGNESIUM [CHEM] AM PHOSPHORUS [CHEM] AM - Assessment Assessment:: 05/09/2020 Brought in via EMS from [place] for worsening shortness of breath, hypoxemia and 2 falls associated with [place] and chills last night Vital signs Prior to transfer: Rate 128, respiratory rate 38, blood pressure 134/50 temp 100.8, felt 70% on room air Upon arrival to ED: Heart rate 113, blood pressure 144/123 (130), temperature 101.5, pulse ox 82% on room air (went up to 92% on 3 L) Placed on nasal cannula once in the emergency department did stabilize pulse ox Lab results CBC: WBC 6.8, hemoglobin 13 (macrocytic hypochromic), platelets 212 Chemistry: Sodium 133, potassium 4, chloride 95, magnesium 1.9, CO2 27, GFR 55, glucose 126 LFTs: Total bilirubin 0.4, alkaline phosphatase 46, AST 43, ALT 52, total protein 7.1, albumin 3.2 D-dimer 0.85 Lactate 0.9 Ferritin 243 proBNP 226 CRP 14 ABGs: 7.38/40 5.1/80 05/16 6.1/95.1 on 3 L nasal cannula Hemoglobin A1c 6.7 COVID 19 + Other results: Chest x-ray: Bilateral patchy infiltrates throughout lung talam[place], diminished lung size, no pleural effusions EKG: Left axis deviation, Q waves in inferior and anterior leads (III, aVF, V4 through V6) 05/10/2020 * Continued worsening oxygenation secondary to COVID-19. * Patient is at very high risk for worsening and severe symptoms secondary to his underlying medical conditions including: Diabetes, hypertension, and mo rbid obesity. * His creatinine kinase is significantly elevated (over 9000) for unknown reason. * Vital signs stable, T-max 101.5 yesterday morning, * White blood cell count decreased to 1.7. * CRP slightly increased at 16.4. * Troponin 0.039. * D-dimer is 0.87. * Blood sugars ranging from 218 down to 137 * Anticipate increasing blood sugars secondary to dexamethasone * started on remdesivir, dexamethasone, Actemra yesterday 05/11/2020 * Continuing worsening oxygenation requiring high flow nasal cannula. * Patient continues to have minimal shortness of breath at rest. * WBC increased to 2.96. * CRP significantly decreased to 6.6 from 16.4. * D-dimer slightly higher at 1.05. * Mag is slightly low at 1.7. * AST increased to 273, but ALT is 92. ALT is still less than 5 times the upper limit of normal, therefore not a contraindication to remdesivir. * Patient continues on remdesivir, dexamethasone, and 1 unit of convalescent plasma. He only received 1 unit last night secondary to concerns of fluid overload. * Patient received 40 mg of Lasix IV after his first unit of convalescent plasma. * Finished Actemra * Renal function is still good at GFR greater than 60, creatinine 1.2, but BUN slightly elevated at 28 * Blood sugars ranging from mid 100s up to 302. * Patient currently on Lantus 5 units at bedtime and sliding scale Humalog - Plan Plan:: Pneumonia due to COVID-19 virus Acute hypoxemic respiratory failure due to COVID-19 Leukopenia Pneumonia PLAN * Remdesivir 2/5 days * dexamethasone 6 mg orally daily to complete 10 days * Actemra x2 doses completed * Give second unit of convalescent plasma * High flow nasal cannula to keep oxygenation between 85 and 93% COPD (chronic obstructive pulmonary disease) COPD, not oxygen dependent at home Only home treatment is albuterol HFA twice daily PLAN Monitor oxygenation Goal pulse ox above 84 albuterol prn Obstructive sleep apnea Endorses full compliance with nightly CPAP for LUKAS Pressure is 8, last adjustment about a year ago PLAN Use CPAP at night if it is comfortable for him and gives adequate oxygenation otherwise use high flow nasal cannula Hypertension Blood pressure control is unable to be determined as patient was short of breath and in distress with initial vital signs Home management with amlodipine 10 and losartan 100 PLAN Continue home amlodipine and losartan PRN hydralazine for SBP above 200 and DBP above 100 Diabetes mellitus, HbA1c6.7% Diabetes appears to be controlled A1c of 6.7, might be a little bit different due to patient being anemic Glucose at home ranges between 125 and 145 as per patient Home management with metformin and glipizide Has never been on insulin Patient will be started on dexamethasone as per COVID management for which low dose long-acting insulin will be started and adjusted as necessary PLAN Scheduled Accu-Cheks before meals and at bedtime Hypoglycemia protocol Increase glargine to 10 units at bedtime -Sliding scale insulin Hold home metformin and glipizide during admission Microcytic hypochromic anemia Chronicity unknown Alters hemoglobin A1c measurement marginally PLAN Iron panel ordered Blood smear ordered Goal hemoglobin above 8 Acute kidney injury due to [id number] Baseline GFR is unknown GFR on admission is 55 Sodium 133 PLAN -Stop IV fluids Encourage p.o. fluid intake Monitor urine output. Strict I's and O's Repeat labs as needed Elevated LFTs -AST increased to 273 -ALT increased to 92 -Continue monitoring but no indication to stop remdesivir Hypoalbuminemia Morbid obesity with BMI of 50.0-59.9, adult Patient endorses very poor eating habits Has minimal daily activity pivoting to and from his scooter PLAN * Prealbumin level Hypothyroidism No acute issues identified On home levothyroxine 75 mcg PLAN * Continue home levothyroxine Dyslipidemia Patient likely has undiagnosed coronary artery disease * Identified Q waves on EKG in anterolateral leads and inferior leads Home management with atorvastatin 10, unsure if this covers his ASCVD risk PLAN * New lipid panel * Continue atorvastatin and aspirin for now Gout Denies any previous exacerbations On home allopurinol 400 daily PLAN Continue home allopurinol at 400 daily for now PROPHYLAXIS DVTLovenox twice daily GInot indicated CODE STATUS: FULL CODE, confirmed with patient that he change his mind from previous advanced directives DISPOSITION: Patient will be fully admitted to medical treatment with Remdesivir, dexamethasone and Actemra for now, depending on progress will start plasma and oxygen supplementation. Length of stay at least 5 days as per Remdesivir treatment regimen requirements. SOCIAL: Patient is a resident of [place], lives with his there who is medical power of ip technology transactions attorney. Normally does pivot to his scooter but has not been able to do so in the past couple of days Not oxygen dependent at home PCP is Dr. Robert
[2020-05-11] MEDS ORDERED: Furosemide 20 MG/2 ML VIAL IVPUSH ONE (16:00)
[2020-05-11] MEDS: Insulin Glarg,Human.Rec.Analog 100 Unit/ML SUBCUT SCH (21:44)
[2020-05-11] MEDS: Melatonin 3 MG Tab PO PRN (21:45)
[2020-05-12] MEDS: traZODone 50 MG Tab PO PRN ×2 (00:19→20:28)
[2020-05-12] MEDS: Insulin Lispro 100 Units/ML 3 ML Vial SUBCUT SCH ×4 (06:39→23:47)
[2020-05-12] MEDS ORDERED: Furosemide 40 MG/4 ML VIAL IVPUSH ONE (09:00)
[2020-05-12] MEDS: Losartan 100 MG Tab PO SCH (09:02)
[2020-05-12] MEDS: Aspirin 81 MG Tab.Chew PO SCH (09:03)
[2020-05-12] MEDS: Calcium Carbonate/Vitamin D3 600 MG-200 Units Tab PO SCH (09:04)
[2020-05-12] MEDS: Dexamethasone 4 MG Tab PO SCH (09:04)
[2020-05-12] MEDS: Simvastatin 20 MG Tab PO SCH (09:05)
[2020-05-12] MEDS: Allopurinol 100 MG Tab PO SCH (09:05)
[2020-05-12] MEDS: Spironolactone 25 MG Tab PO SCH (09:05)
[2020-05-12] MEDS: cefTRIAXone 2 GM in Sodium Chloride 0.9% 100 ML IV SCH (09:06)
[2020-05-12] MEDS: Enoxaparin 40 MG/0.4 ML Syringe SUBCUT SCH ×2 (09:06→20:27)
[2020-05-12] MEDS: Azithromycin 500 MG in Sodium Chloride 0.9% 250 ML IV SCH (10:22)
[2020-05-12] MEDS: Levothyroxine 50 MCG Tab PO SCH (10:29)
--- NOTE | 2020-05-12 10:41 | PCM.PN ---
- General Info Date of Service: 05/12/20 Admission Dx/Problem (Free Text): Admission Diagnosis/Problem Admission Diagnosis/Problem Viral pneumonia Subjective Update: Patient has no significant change in symptoms. He does have a decrease in appetite and skipped breakfast this morning. He did have a bowel movement this morning. Oxygenation is maintaining in the mid to upper 80s, but he did have to have his high flow neb settings increased to 30 L/min at 80% FiO2. Functional Status: Reports: Pain Controlled - Review of Systems General: Reports: No Symptoms HEENT: Reports: No Symptoms Pulmonary: Reports: Shortness of Breath, Cough Cardiovascular: Reports: No Symptoms Gastrointestinal: Reports: No Symptoms Musculoskeletal: Reports: Other (Hip pain on the left when he lays on it) Psychiatric: Reports: No Symptoms - Patient Data Vitals - Most Recent: Last Vital Signs Temp 97.3 F 05/12/20 08:00 Pulse 78 05/12/20 08:00 Resp 20 05/12/20 08:00 BP 110/66 05/12/20 09:02 Pulse Ox 87 L 05/12/20 08:00 Weight - Most Recent: 171.639 kg I&O - Last 24 Hours: Intake & Output 05/11/20 05/12/20 05/12/20 22:59 06:59 14:59 Intake Total 1400 500 Output Total 1300 565 150 Balance 100 -65 -150 Lab Results Last 24 Hours: Laboratory Results - last 24 hr 05/10/20 05/11/20 05/11/20 Range/Units 05:32 09:23 11:54 WBC (4.23-9.07) K/mm3 RBC (4.63-6.08) M/mm3 Hgb 15.0 D (13.7-17.5) gm/dl Hct (40.1-51.0) % MCV (79.0-92.2) fl MCH (25.7-32.2) pg MCHC (32.2-35.5) g/dl RDW Std Deviation (35.1-43.9) fL Plt Count (163-337) K/mm3 MPV (9.4-12.3) fl Neut % (Auto) (34.0-67.9) % Lymph % (Auto) (21.8-53.1) % Lewis % (Auto) (5.3-12.2) % Eos % (Auto) (0.8-7.0) Baso % (Auto) (0.1-1.2) % Neut # (Auto) (1.78-5.38) K/mm3 Lymph # (Auto) (1.32-3.57) K/mm3 Lewis # (Auto) (0.30-0.82) K/mm3 Eos # (Auto) (0.04-0.54) K/mm3 Baso # (Auto) (0.01-0.08) K/mm3 Manual Slide Review Abnormal smear D-Dimer, Quantitative (0.19-0.50) mg/L Sodium (136-145) mEq/L Potassium (3.5-5.1) mEq/L Chloride (98-107) mEq/L Carbon Dioxide (21-32) mEq/L Anion Gap (5-15) BUN (7-18) mg/dL Creatinine (0.7-1.3) mg/dL Est Cr Clr Drug Dosing mL/min Estimated GFR (MDRD) (>60) mL/min BUN/Creatinine Ratio (14-18) Glucose (80-115) mg/dL POC Glucose 161 H (80-115) mg/dL Calcium (8.5-10.1) mg/dL Phosphorus (2.6-4.7) mg/dL Magnesium (1.8-2.4) mg/dl Total Bilirubin (0.2-1.0) mg/dL AST (15-37) U/L ALT (16-63) U/L Alkaline Phosphatase (46-116) U/L C-Reactive Protein (<1.0) mg/dL Total Protein (6.4-8.2) g/dl Albumin (3.4-5.0) g/dl Globulin gm/dL Albumin/Globulin Ratio (1-2) Blood Type O POSITIVE 05/11/20 05/11/20 05/12/20 Range/Units 17:25 21:39 04:23 WBC 3.06 L (4.23-9.07) K/mm3 RBC 5.06 (4.63-6.08) M/mm3 Hgb 14.9 (13.7-17.5) gm/dl Hct 46.5 (40.1-51.0) % MCV 91.9 (79.0-92.2) fl MCH 29.4 (25.7-32.2) pg MCHC 32.0 L (32.2-35.5) g/dl RDW Std Deviation 44.9 H (35.1-43.9) fL Plt Count 229 (163-337) K/mm3 MPV 9.3 L (9.4-12.3) fl Neut % (Auto) 59.8 (34.0-67.9) % Lymph % (Auto) 21.2 L (21.8-53.1) % Lewis % (Auto) 19.0 H (5.3-12.2) % Eos % (Auto) 0 L (0.8-7.0) Baso % (Auto) 0.0 L (0.1-1.2) % Neut # (Auto) 1.83 (1.78-5.38) K/mm3 Lymph # (Auto) 0.65 L (1.32-3.57) K/mm3 Lewis # (Auto) 0.58 (0.30-0.82) K/mm3 Eos # (Auto) 0.00 L (0.04-0.54) K/mm3 Baso # (Auto) 0.00 L (0.01-0.08) K/mm3 Manual Slide Review Abnormal smear D-Dimer, Quantitative (0.19-0.50) mg/L Sodium (136-145) mEq/L Potassium (3.5-5.1) mEq/L Chloride (98-107) mEq/L Carbon Dioxide (21-32) mEq/L Anion Gap (5-15) BUN (7-18) mg/dL Creatinine (0.7-1.3) mg/dL Est Cr Clr Drug Dosing mL/min Estimated GFR (MDRD) (>60) mL/min BUN/Creatinine Ratio (14-18) Glucose (80-115) mg/dL POC Glucose 252 H 184 H (80-115) mg/dL Calcium (8.5-10.1) mg/dL Phosphorus (2.6-4.7) mg/dL Magnesium (1.8-2.4) mg/dl Total Bilirubin (0.2-1.0) mg/dL AST (15-37) U/L ALT (16-63) U/L Alkaline Phosphatase (46-116) U/L C-Reactive Protein (<1.0) mg/dL Total Protein (6.4-8.2) g/dl Albumin (3.4-5.0) g/dl Globulin gm/dL Albumin/Globulin Ratio (1-2) Blood Type 05/12/20 05/12/20 05/12/20 Range/Units 04:23 04:23 06:07 WBC (4.23-9.07) K/mm3 RBC (4.63-6.08) M/mm3 Hgb (13.7-17.5) gm/dl Hct (40.1-51.0) % MCV (79.0-92.2) fl MCH (25.7-32.2) pg MCHC (32.2-35.5) g/dl RDW Std Deviation (35.1-43.9) fL Plt Count (163-337) K/mm3 MPV (9.4-12.3) fl Neut % (Auto) (34.0-67.9) % Lymph % (Auto) (21.8-53.1) % Lewis % (Auto) (5.3-12.2) % Eos % (Auto) (0.8-7.0) Baso % (Auto) (0.1-1.2) % Neut # (Auto) (1.78-5.38) K/mm3 Lymph # (Auto) (1.32-3.57) K/mm3 Lewis # (Auto) (0.30-0.82) K/mm3 Eos # (Auto) (0.04-0.54) K/mm3 Baso # (Auto) (0.01-0.08) K/mm3 Manual Slide Review D-Dimer, Quantitative 0.80 H (0.19-0.50) mg/L Sodium 139 (136-145) mEq/L Potassium 4.3 (3.5-5.1) mEq/L Chloride 100 (98-107) mEq/L Carbon Dioxide 31 (21-32) mEq/L Anion Gap 12.3 (5-15) BUN 32 H (7-18) mg/dL Creatinine 1.0 (0.7-1.3) mg/dL Est Cr Clr Drug Dosing 65.18 mL/min Estimated GFR (MDRD) > 60 (>60) mL/min BUN/Creatinine Ratio 32.0 H (14-18) Glucose 163 H (80-115) mg/dL POC Glucose 142 H (80-115) mg/dL Calcium 8.5 (8.5-10.1) mg/dL Phosphorus 4.3 (2.6-4.7) mg/dL Magnesium 1.9 (1.8-2.4) mg/dl Total Bilirubin 0.2 (0.2-1.0) mg/dL AST 189 H (15-37) U/L ALT 84 H (16-63) U/L Alkaline Phosphatase 45 L (46-116) U/L C-Reactive Protein 3.8 H* (<1.0) mg/dL Total Protein 7.1 (6.4-8.2) g/dl Albumin 3.0 L (3.4-5.0) g/dl Globulin 4.1 gm/dL Albumin/Globulin Ratio 0.7 L (1-2) Blood Type Alberto Results Last 24 Hours: Microbiology 05/09/20 09:35 Aerobic Blood Culture - Preliminary Blood - Venous NO GROWTH AFTER 3 DAYS Anaerobic Blood Culture - Preliminary NO GROWTH AFTER 3 DAYS 05/09/20 09:23 Aerobic Blood Culture - Preliminary Blood - Venous - Lab Draw NO GROWTH AFTER 3 DAYS Anaerobic Blood Culture - Preliminary NO GROWTH AFTER 3 DAYS Med Orders - Current: Current Medications Acetaminophen (Tylenol) 650 mg PO Q4H PRN PRN Reason: Pain (Mild 1-3)/fever Albuterol (Proventil Hfa) 0 gm INH Q2H PRN PRN Reason: Wheezing Allopurinol (Zyloprim) 400 mg PO DAILY [facility] Last Admin: 05/12/20 09:05 Dose: 400 mg Documented by: Aspirin (Aspirin) 81 mg PO DAILY [facility] Last Admin: 05/12/20 09:03 Dose: 81 mg Documented by: Calcium Carbonate (Calcium Carbonate/Vitamin D 600 Mg-200 Unit) 1 tab PO DAILY [facility] Last Admin: 05/12/20 09:04 Dose: 1 tab Documented by: Dexamethasone (Dexamethasone) 6 mg PO DAILY [facility] Stop: 05/18/20 09:01 Last Admin: 05/12/20 09:04 Dose: 6 mg Documented by: Dextrose/Water (Dextrose 50% In Water) 50 ml IVPUSH ASDIRECTED PRN PRN Reason: Hypoglycemia Enoxaparin Sodium (Lovenox) 40 mg SUBCUT BID [facility] Last Admin: 05/12/20 09:06 Dose: 40 mg Documented by: Furosemide (Lasix) 40 mg PO DAILY [facility] Last Admin: 05/11/20 09:33 Dose: 40 mg Documented by: Hydralazine HCl (Apresoline) 10 mg IVPUSH Q2H PRN PRN Reason: Hypertension Remdesivir 100 mg/ Sodium (Chloride) 100 mls @ 100 mls/hr IV Q24H [facility] Stop: 05/13/20 12:59 Last Admin: 05/11/20 11:43 Dose: 100 mls/hr Documented by: Ceftriaxone Sodium 2 gm/ (Sodium Chloride) 100 mls @ 200 mls/hr IV Q24H [facility] Stop: 05/14/20 09:29 Last Admin: 05/12/20 09:06 Dose: 200 mls/hr Documented by: Insulin Glargine (Lantus) 10 unit SUBCUT BEDTIME [facility] Last Admin: 05/11/20 21:44 Dose: 10 units Documented by: Insulin Human Lispro (Humalog) 0 unit SUBCUT QIDACANDBED [facility]; Protocol Last Admin: 05/12/20 06:39 Dose: Not Given Documented by: Levothyroxine Sodium (Levothyroxine) 25 mcg PO SuTuThSa [facility] Last Admin: 05/11/20 13:50 Dose: 25 mcg Documented by: Levothyroxine Sodium (Synthroid) 50 mcg PO MoWeFr [facility] Last Admin: 05/10/20 11:30 Dose: 50 mcg Documented by: Losartan Potassium (Cozaar) 100 mg PO DAILY [facility] Last Admin: 05/12/20 09:02 Dose: 100 mg Documented by: Melatonin (Melatonin) 9 mg PO BEDTIME PRN PRN Reason: Insomnia Last Admin: 05/11/20 21:45 Dose: 9 mg Documented by: Nystatin (Nystop) 1 gm TOP QID PRN PRN Reason: excoriation Last Admin: 05/10/20 20:43 Dose: 1 applic Documented by: Ondansetron HCl (Zofran Odt) 4 mg PO Q6H PRN PRN Reason: nausea, able to take PO Ondansetron HCl (Zofran) 4 mg IV Q6H PRN PRN Reason: Nausea/Vomiting Simvastatin (Zocor) 20 mg PO DAILY [facility] Last Admin: 05/12/20 09:05 Dose: 20 mg Documented by: Spironolactone (Aldactone) 25 mg PO DAILY [facility] Last Admin: 05/12/20 09:05 Dose: 25 mg Documented by: Trazodone HCl (Trazodone) 50 mg PO BEDTIME PRN PRN Reason: Insomnia Last Admin: 05/12/20 00:19 Dose: 50 mg Documented by: Discontinued Medications Acetaminophen (Tylenol) 975 mg PO ONETIME ONE Stop: 05/09/20 08:57 Last Admin: 05/09/20 09:34 Dose: 975 mg Documented by: Dexamethasone (Dexamethasone) 6 mg IVPUSH Q24H [facility] Last Admin: 05/10/20 11:31 Dose: 6 mg Documented by: Enoxaparin Sodium (Lovenox) 40 mg SUBCUT Q12H [facility] Last Admin: 05/10/20 22:50 Dose: Not Given Documented by: Furosemide (Lasix) 40 mg IVPUSH ONETIME ONE Stop: 05/10/20 21:16 Last Admin: 05/10/20 21:35 Dose: 40 mg Documented by: Furosemide (Lasix) 20 mg IVPUSH ONETIME ONE Stop: 05/11/20 16:01 Last Admin: 05/11/20 16:18 Dose: 20 mg Documented by: Furosemide (Lasix) 40 mg IVPUSH NOW ONE Stop: 05/12/20 09:01 Last Admin: 05/12/20 09:06 Dose: 40 mg Documented by: Sodium Chloride (Normal Saline) 1,000 mls @ 150 mls/hr IV ASDIRECTED [facility] Last Admin: 05/10/20 11:31 Dose: 150 mls/hr Documented by: Remdesivir 200 mg/ Sodium (Chloride) 250 mls @ 250 mls/hr IV ONETIME ONE Stop: 05/09/20 12:59 Last Admin: 05/09/20 11:47 Dose: 250 mls/hr Documented by: Tocilizumab 800 mg/ Sodium (Chloride) 100 mls @ 100 mls/hr IV Q12H [facility] Stop: 05/10/20 01:59 Tocilizumab 800 mg/ Sodium (Chloride) 100 mls @ 100 mls/hr IV Q12H [facility] Stop: 05/10/20 01:59 Last Admin: 05/10/20 00:42 Dose: 100 mls/hr Documented by: Azithromycin 500 mg/ Sodium (Chloride) 250 mls @ 250 mls/hr IV Q24H [facility] Stop: 05/12/20 10:29 Last Admin: 05/12/20 10:22 Dose: 250 mls/hr Documented by: Sodium Chloride (Normal Saline) 1,000 mls @ 50 mls/hr IV ASDIRECTED [facility] Sodium Chloride (Normal Saline) Confirm Administered Dose 250 mls @ as directed .ROUTE .STK-MED ONE Stop: 05/11/20 11:04 Last Admin: 05/11/20 11:35 Dose: 500 mls/hr Documented by: Magnesium Sulfate 2 gm/ Premix 50 mls @ 25 mls/hr IV ONETIME ONE Stop: 05/11/20 17:29 Last Admin: 05/11/20 16:17 Dose: 25 mls/hr Documented by: Insulin Glargine (Lantus) 5 unit SUBCUT BEDTIME [facility] Last Admin: 05/10/20 20:40 Dose: 5 units Documented by: Levothyroxine Sodium (Levothyroxine) 50 mcg PO MoWeFr [facility] Last Admin: 05/10/20 10:26 Dose: Not Given Documented by: Tocilizumab (Actemra) 800 mg IV Q12HR [facility] Stop: 05/10/20 09:01 - Exam Quality Assessment: Supplemental Oxygen (High flow nasal cannula) General: Alert, Oriented, Mild Distress HEENT: Pupils Equal, Mucous Membr. Moist/[place] Neck: Supple Lungs: Normal Respiratory Effort (Mildly increased respiratory effort and rate), Decreased Breath Sounds, Crackles Cardiovascular: Regular Rate, Regular Rhythm GI/Abdominal Exam: Normal Bowel Sounds, Soft, Non-Tender, No Distention Extremities: Normal Inspection, Normal Range of Motion, Non-Tender, Normal Capillary Refill, Pedal Edema (1+, improved) Skin: Warm, Dry, Intact Neurological: No New Focal Deficit Psy/Mental Status: Alert, Normal Affect, Normal Mood Sepsis Event Note - Evaluation Sepsis Screening Result: Sepsis Risk - Focused Exam Vital Signs: Vital Signs Temp Pulse Resp BP BP Pulse Ox 05/12/20 09:02 110/66 05/12/20 08:00 97.3 F 78 20 110/66 87 L 05/12/20 04:00 98.0 F 78 19 105/61 88 L 05/12/20 00:00 97.1 F 81 19 115/59 L 88 L - Problem List & Annotations (1) Acute hypoxemic respiratory failure due to COVID-19 SNOMED Code(s): 443405005 Code(s): U07.1 - COVID-19; J96.01 - ACUTE RESPIRATORY FAILURE WITH HYPOXIA Status: Acute Current Visit: Yes (2) Acute kidney injury due to COVID-19 SNOMED Code(s): 078445158 Code(s): U07.1 - COVID-19; N17.9 - ACUTE KIDNEY FAILURE, UNSPECIFIED Status: Acute Current Visit: Yes (3) COPD (chronic obstructive pulmonary disease) SNOMED Code(s): 99144671 Code(s): J44.9 - CHRONIC OBSTRUCTIVE PULMONARY DISEASE, UNSPECIFIED Status: Acute Current Visit: Yes (4) Diabetes mellitus SNOMED Code(s): 14435400 Code(s): E11.9 - TYPE 2 DIABETES MELLITUS WITHOUT COMPLICATIONS Status: Acute Current Visit: Yes (5) Morbid obesity with BMI of 50.0-59.9, adult SNOMED Code(s): 181879049, 39263639715741 Code(s): E66.01 - MORBID (SEVERE) OBESITY DUE TO EXCESS CALORIES; Z68.43 - BODY MASS INDEX (BMI) 50.0-59.9, ADULT Status: Acute Current Visit: Yes (6) Pneumonia due to COVID-19 virus SNOMED Code(s): 059964857 Code(s): U07.1 - COVID-19; J12.89 - OTHER VIRAL PNEUMONIA Status: Acute Current Visit: Yes - Problem List Review Problem List Initiated/Reviewed/Updated: Yes - My Orders Last 24 Hours: My Active Orders 05/11/20 10:00 Levothyroxine 25 mcg PO SuTuThSa 05/11/20 20:59 Melatonin 9 mg PO BEDTIME PRN traZODone 50 mg PO BEDTIME PRN 05/11/20 21:00 Insulin Glarg,Human.Rec.Analog [LantUS] 10 unit SUBCUT BEDTIME 05/12/20 10:04 Incentive Spirometry [RT Incentive Spirometry] [RC] ASDIRECTED 05/12/20 10:36 Code Status [Resuscitation Status] Routine - Assessment Assessment:: 05/09/2020 Brought in via EMS from [place] for worsening shortness of breath, hypoxemia and 2 falls associated with [place] and chills last night Vital signs Prior to transfer: Rate 128, respiratory rate 38, blood pressure 134/50 temp 100.8, felt 70% on room air Upon arrival to ED: Heart rate 113, blood pressure 144/123 (130), temperature 101.5, pulse ox 82% on room air (went up to 92% on 3 L) Placed on nasal cannula once in the emergency department did stabilize pulse ox Lab results CBC: WBC 6.8, hemoglobin 13 (macrocytic hypochromic), platelets 212 Chemistry: Sodium 133, potassium 4, chloride 95, magnesium 1.9, CO2 27, GFR 55, glucose 126 LFTs: Total bilirubin 0.4, alkaline phosphatase 46, AST 43, ALT 52, total protein 7.1, albumin 3.2 D-dimer 0.85 Lactate 0.9 Ferritin 243 proBNP 226 CRP 14 ABGs: 7.38/40 5.1/80 05/16 6.1/95.1 on 3 L nasal cannula Hemoglobin A1c 6.7 COVID 19 + Other results: Chest x-ray: Bilateral patchy infiltrates throughout lung [place], diminished lung size, no pleural effusions EKG: Left axis deviation, Q waves in inferior and anterior leads (III, aVF, V4 through V6) 05/10/2020 * Continued worsening oxygenation secondary to COVID-19. * Patient is at very high risk for worsening and severe symptoms secondary to his underlying medical conditions including: Diabetes, hypertension, and morbid obesity. * His creatinine kinase is significantly elevated (over 9000) for unknown reason. * Vital signs stable, T-max 101.5 yesterday morning, * White blood cell count decreased to 1.7. * CRP slightly increased at 16.4. * Troponin 0.039. * D-dimer is 0.87. * Blood sugars ranging from 218 down to 137 * Anticipate increasing blood sugars secondary to dexamethasone * started on remdesivir, dexamethasone, Actemra yesterday 05/11/2020 * Continuing worsening oxygenation requiring high flow nasal cannula. * Patient continues to have minimal shortness of breath at rest. * WBC increased to 2.96. * CRP significantly decreased to 6.6 from 16.4. * D-dimer slightly higher at 1.05. * Mag is slightly low at 1.7. * AST increased to 273, but ALT is 92. ALT is still less than 5 times the upper limit of normal, therefore not a contraindication to remdesivir. * Patient continues on remdesivir, dexamethasone, and 1 unit of convalescent plasma. He only received 1 unit last night secondary to concerns of fluid overload. * Patient received 40 mg of Lasix IV after his first unit of convalescent plasma. * Finished Actemra * Renal function is still good at GFR greater than 60, creatinine 1.2, but BUN slightly elevated at 28 * Blood sugars ranging from mid 100s up to 302. * Patient currently on Lantus 5 units at bedtime and sliding scale Humalog 05/12/2020 * Mild worsening of oxygenation requiring a increase in high flow nasal cannula. 30 L/min at 80% FiO2. * Vital signs: Afebrile, blood pressure stable, respiratory rate 20-30, heart rate 80s * WBC 3.06increased * CRP 3.8decreased * D-dimer 0.80decreased * Renal function: GFR greater than 60, creatinine 1.0 * Remdesivir 4 of 5 days, dexamethasone day 4 of 10 days, completed Actemra, completed 2 units of convalescent plasma * Azithromycin third day of 3, ceftriaxone day 3 of 5 * Blood sugars improved, ranging from 142 to 252 * Currently on Lantus 10 units at bedtime, increased from yesterday * Liver enzymes improved, AST 189, ALT 84. - Plan Plan:: Pneumonia due to COVID-19 virus Acute hypoxemic respiratory failure due to COVID-19 Leukopenia Pneumonia PLAN * Remdesivir 4/5 days * dexamethasone 6 mg orally day 4 of 10 days * Actemra x2 doses completed * Give second unit of convalescent plasma * High flow nasal cannula to keep oxygenation between 85 and 93% COPD (chronic obstructive pulmonary disease) COPD, not oxygen dependent at home Only home treatment is albuterol HFA twice daily PLAN Monitor oxygenation Goal pulse ox above 84 albuterol prn Obstructive sleep apnea Endorses full compliance with nightly CPAP for [place] Pressure is 8, last adjustment about a year ago PLAN Use CPAP at night if it is comfortable for him and gives adequate oxygenation otherwise use high flow nasal cannula Hypertension Blood pressure control is unable to be determined as patient was short of breath and in distress with initial vital signs Home management with amlodipine 10 and losartan 100 PLAN Continue home amlodipine and losartan PRN hydralazine for SBP above 200 and DBP above 100 Diabetes mellitus, HbA1c6.7% Diabetes appears to be controlled A1c of 6.7, might be a little bit different due to patient being anemic Glucose at home ranges between 125 and 145 as per patient Home management with metformin and glipizide Has never been on insulin Patient will be started on dexamethasone as per COVID management for which low dose long-acting insulin will be started and adjusted as necessary PLAN Scheduled Accu-Cheks before meals and at bedtime Hypoglycemia protocol Continue glargine to 10 units at bedtime -Sliding scale insulin Hold home metformin and glipizide during admission Microcytic hypochromic anemia Chronicity unknown Alters hemoglobin A1c measurement marginally PLAN Iron panel ordered Blood smear ordered Goal hemoglobin above 8 Acute kidney injury due to [id number] Baseline GFR is unknown GFR on admission is 55 Sodium 133 PLAN -Stop IV fluids Encourage p.o. fluid intake Monitor urine output. Strict I's and O's Repeat labs as needed Elevated LFTs -Continue monitoring but no indication to stop remdesivir Hypoalbuminemia Morbid obesity with BMI of 50.0-59.9, adult Patient endorses very poor eating habits Has minimal daily activity pivoting to and from his scooter PLAN * Encourage adequate diet and supplements Hypothyroidism No acute issues identified On home levothyroxine 75 mcg PLAN * Continue home levothyroxine Dyslipidemia Patient likely has undiagnosed coronary artery disease * Identified Q waves on EKG in anterolateral leads and inferior leads Home management with atorvastatin 10, unsure if this covers his ASCVD risk PLAN * New lipid panel * Continue atorvastatin and aspirin for now Gout Denies any previous exacerbations On home allopurinol 400 daily PLAN Continue home allopurinol at 400 daily for now PROPHYLAXIS DVTLovenox twice daily GInot indicated CODE STATUS: DO NOT INTUBATE, confirmed with patient that he changed his mind from previous advanced directives PROGNOSIS: Patient has a very poor prognosis. He has multiple medical problems and is morbidly obese. This places him at a very high risk for complications and mortality. I discussed this with the patient. He stated he did not want to be intubated, but he would want CPR. DISPOSITION: Patient will be fully admitted to medical treatment with Remdesivir, dexamethasone and Actemra for now, depending on progress will start plasma and oxygen supplementation. Length of stay greater than 96 hours due to poor improvement and per Remdesivir treatment regimen requirements. SOCIAL: Patient is a resident of [place], lives with his there who is medical power of finance attorney. Normally does pivot to his scooter but has not been able to do so in the past couple of days Not oxygen dependent at home PCP is Dr. Robert
[2020-05-12] MEDS: REMDESIVIR (EUA) 100 MG in Sodium Chloride 0.9% 100 ML IV SCH (12:39)
[2020-05-12] MEDS: Insulin Glarg,Human.Rec.Analog 100 Unit/ML SUBCUT SCH (20:27)
[2020-05-12] MEDS: Nystatin Topical Powder 15 GM Bottle TOP PRN (20:28)
[2020-05-12] MEDS: Melatonin 3 MG Tab PO PRN (20:28)
[2020-05-13] MEDS: Melatonin 3 MG Tab PO PRN ×2 (01:22→20:02)
[2020-05-13] MEDS: Insulin Lispro 100 Units/ML 3 ML Vial SUBCUT SCH ×4 (07:07→22:11)
[2020-05-13] MEDS: Spironolactone 25 MG Tab PO SCH (08:34)
[2020-05-13] MEDS: Aspirin 81 MG Tab.Chew PO SCH (08:34)
[2020-05-13] MEDS: Furosemide 40 MG Tab PO SCH (08:34)
[2020-05-13] MEDS: Simvastatin 20 MG Tab PO SCH (08:35)
[2020-05-13] MEDS: Calcium Carbonate/Vitamin D3 600 MG-200 Units Tab PO SCH (08:35)
[2020-05-13] MEDS: Allopurinol 100 MG Tab PO SCH (08:35)
[2020-05-13] MEDS: Dexamethasone 4 MG Tab PO SCH (08:36)
[2020-05-13] MEDS: Losartan 100 MG Tab PO SCH (08:37)
[2020-05-13] MEDS: Enoxaparin 40 MG/0.4 ML Syringe SUBCUT SCH ×2 (08:38→20:04)
[2020-05-13] MEDS: cefTRIAXone 2 GM in Sodium Chloride 0.9% 100 ML IV SCH (08:38)
[2020-05-13] MEDS: Levothyroxine 25 MCG Tab PO SCH ×2 (10:46→13:16)
[2020-05-13] MEDS: REMDESIVIR (EUA) 100 MG in Sodium Chloride 0.9% 100 ML IV SCH (12:26)
--- NOTE | 2020-05-13 14:20 | PCM.PN ---
- General Info Date of Service: 05/13/20 Admission Dx/Problem (Free Text): Admission Diagnosis/Problem Admission Diagnosis/Problem Viral pneumonia Subjective Update: Patient continues to have slow improvement in his respiratory status. He continues to have significant desaturations with any activity. Respiratory therapy did find out today that at when his oxygenation is Checked at [place] assisted [facility] he is having a good day if his oxygen is in the mid 80s. Patient does state that he usually does not eat breakfast and he skipped breakfast again today. Functional Status: Reports: Pain Controlled - Review of Systems General: Reports: No Symptoms HEENT: Reports: No Symptoms Pulmonary: Reports: Shortness of Breath Cardiovascular: Reports: No Symptoms Gastrointestinal: Reports: No Symptoms Musculoskeletal: Reports: No Symptoms Neurological: Reports: No Symptoms Psychiatric: Reports: No Symptoms - Patient Data Vitals - Most Recent: Last Vital Signs Temp 97.3 F 05/13/20 08:00 Pulse 80 05/13/20 08:00 Resp 30 H 05/13/20 08:00 BP 98/81 05/13/20 08:37 Pulse Ox 91 L 05/13/20 08:52 Weight - Most Recent: 167.013 kg I&O - Last 24 Hours: Intake & Output 05/12/20 05/13/20 05/13/20 22:59 06:59 14:59 Intake Total 650 200 750 Output Total 1100 700 950 Balance -450 -500 -200 Lab Results Last 24 Hours: Laboratory Results - last 24 hr 05/12/20 05/13/20 05/13/20 Range/Units 19:26 06:00 13:22 POC Glucose 236 H 140 H 307 H (80-115) mg/dL Alberto Results Last 24 Hours: Microbiology 05/09/20 09:35 Aerobic Blood Culture - Preliminary Blood - Venous NO GROWTH AFTER 4 DAYS Anaerobic Blood Culture - Preliminary NO GROWTH AFTER 4 DAYS 05/09/20 09:23 Aerobic Blood Culture - Preliminary Blood - Venous - Lab Draw NO GROWTH AFTER 4 DAYS Anaerobic Blood Culture - Preliminary NO GROWTH AFTER 4 DAYS Med Orders - Current: Current Medications Acetaminophen (Tylenol) 650 mg PO Q4H PRN PRN Reason: Pain (Mild 1-3)/fever Albuterol (Proventil Hfa) 0 gm INH Q2H PRN PRN Reason: Wheezing Allopurinol (Zyloprim) 400 mg PO DAILY NURYS Last Admin: 05/13/20 08:35 Dose: 400 mg Documented by: Aspirin (Aspirin) 81 mg PO DAILY [facility] Last Admin: 05/13/20 08:34 Dose: 81 mg Documented by: Calcium Carbonate (Calcium Carbonate/Vitamin D 600 Mg-200 Unit) 1 tab PO DAILY [facility] Last Admin: 05/13/20 08:35 Dose: 1 tab Documented by: Dexamethasone (Dexamethasone) 6 mg PO DAILY [facility] Stop: 05/18/20 09:01 Last Admin: 05/13/20 08:36 Dose: 6 mg Documented by: Dextrose/Water (Dextrose 50% In Water) 50 ml IVPUSH ASDIRECTED PRN PRN Reason: Hypoglycemia Enoxaparin Sodium (Lovenox) 40 mg SUBCUT BID [facility] Last Admin: 05/13/20 08:38 Dose: 40 mg Documented by: Furosemide (Lasix) 40 mg PO DAILY [facility] Last Admin: 05/13/20 08:34 Dose: 40 mg Documented by: Hydralazine HCl (Apresoline) 10 mg IVPUSH Q2H PRN PRN Reason: Hypertension Ceftriaxone Sodium 2 gm/ (Sodium Chloride) 100 mls @ 200 mls/hr IV Q24H [facility] Stop: 05/14/20 09:29 Last Admin: 05/13/20 08:38 Dose: 200 mls/hr Documented by: Insulin Glargine (Lantus) 10 unit SUBCUT BEDTIME [facility] Last Admin: 05/12/20 20:27 Dose: 10 units Documented by: Insulin Human Lispro (Humalog) 0 unit SUBCUT QIDACANDBED [facility]; Protocol Last Admin: 05/13/20 13:22 Dose: 4 units Documented by: Levothyroxine Sodium (Levothyroxine) 25 mcg PO SuTuThSa [facility] Last Admin: 05/13/20 13:16 Dose: 25 mcg Documented by: Levothyroxine Sodium (Synthroid) 50 mcg PO MoWeFr [facility] Last Admin: 05/12/20 10:29 Dose: 50 mcg Documented by: Losartan Potassium (Cozaar) 100 mg PO DAILY [facility] Last Admin: 05/13/20 08:37 Dose: 100 mg Documented by: Melatonin (Melatonin) 9 mg PO BEDTIME PRN PRN Reason: Insomnia Last Admin: 05/13/20 01:22 Dose: 9 mg Documented by: Nystatin (Nystop) 1 gm TOP QID PRN PRN Reason: excoriation Last Admin: 05/12/20 20:28 Dose: 1 applic Documented by: Ondansetron HCl (Zofran Odt) 4 mg PO Q6H PRN PRN Reason: nausea, able to take PO Ondansetron HCl (Zofran) 4 mg IV Q6H PRN PRN Reason: Nausea/Vomiting Simvastatin (Zocor) 20 mg PO DAILY [facility] Last Admin: 05/13/20 08:35 Dose: 20 mg Documented by: Spironolactone (Aldactone) 25 mg PO DAILY [facility] Last Admin: 05/13/20 08:34 Dose: 25 mg Documented by: Trazodone HCl (Trazodone) 50 mg PO BEDTIME PRN PRN Reason: Insomnia Last Admin: 05/12/20 20:28 Dose: 50 mg Documented by: Discontinued Medications Acetaminophen (Tylenol) 975 mg PO ONETIME ONE Stop: 05/09/20 08:57 Last Admin: 05/09/20 09:34 Dose: 975 mg Documented by: Dexamethasone (Dexamethasone) 6 mg IVPUSH Q24H [facility] Last Admin: 05/10/20 11:31 Dose: 6 mg Documented by: Enoxaparin Sodium (Lovenox) 40 mg SUBCUT Q12H [facility] Last Admin: 05/10/20 22:50 Dose: Not Given Documented by: Furosemide (Lasix) 40 mg IVPUSH ONETIME ONE Stop: 05/10/20 21:16 Last Admin: 05/10/20 21:35 Dose: 40 mg Documented by: Furosemide (Lasix) 20 mg IVPUSH ONETIME ONE Stop: 05/11/20 16:01 Last Admin: 05/11/20 16:18 Dose: 20 mg Documented by: Furosemide (Lasix) 40 mg IVPUSH NOW ONE Stop: 05/12/20 09:01 Last Admin: 05/12/20 09:06 Dose: 40 mg Documented by: Sodium Chloride (Normal Saline) 1,000 mls @ 150 mls/hr IV ASDIRECTED [facility] Last Admin: 05/10/20 11:31 Dose: 150 mls/hr Documented by: Remdesivir 200 mg/ Sodium (Chloride) 250 mls @ 250 mls/hr IV ONETIME ONE Stop: 05/09/20 12:59 Last Admin: 05/09/20 11:47 Dose: 250 mls/hr Documented by: Remdesivir 100 mg/ Sodium (Chloride) 100 mls @ 100 mls/hr IV Q24H [facility] Stop: 05/13/20 12:59 Last Admin: 05/13/20 12:26 Dose: 100 mls/hr Documented by: Tocilizumab 800 mg/ Sodium (Chloride) 100 mls @ 100 mls/hr IV Q12H [facility] Stop: 05/10/20 01:59 Tocilizumab 800 mg/ Sodium (Chloride) 100 mls @ 100 mls/hr IV Q12H [facility] Stop: 05/10/20 01:59 Last Admin: 05/10/20 00:42 Dose: 100 mls/hr Documented by: Azithromycin 500 mg/ Sodium (Chloride) 250 mls @ 250 mls/hr IV Q24H [facility] Stop: 05/12/20 10:29 Last Admin: 05/12/20 10:22 Dose: 250 mls/hr Documented by: Sodium Chloride (Normal Saline) 1,000 mls @ 50 mls/hr IV ASDIRECTED [facility] Sodium Chloride (Normal Saline) Confirm Administered Dose 250 mls @ as directed .ROUTE .STK-MED ONE Stop: 05/11/20 11:04 Last Admin: 05/11/20 11:35 Dose: 500 mls/hr Documented by: Magnesium Sulfate 2 gm/ Premix 50 mls @ 25 mls/hr IV ONETIME ONE Stop: 05/11/20 17:29 Last Admin: 05/11/20 16:17 Dose: 25 mls/hr Documented by: Insulin Glargine (Lantus) 5 unit SUBCUT BEDTIME [facility] Last Admin: 05/10/20 20:40 Dose: 5 units Documented by: Levothyroxine Sodium (Levothyroxine) 50 mcg PO MoWeFr [facility] Last Admin: 05/10/20 10:26 Dose: Not Given Documented by: Tocilizumab (Actemra) 800 mg IV Q12HR [facility] Stop: 05/10/20 09:01 - Exam Quality Assessment: Supplemental Oxygen (High flow nasal cannula) General: Alert, Oriented HEENT: Pupils Equal, Mucous Membr. Moist/[place] Neck: Supple Lungs: Clear to Auscultation, Normal Respiratory Effort Cardiovascular: Regular Rate, Regular Rhythm GI/Abdominal Exam: Normal Bowel Sounds, Soft, Non-Tender, No Organomegaly, No Distention, No Abnormal Bruit, No Mass, Pelvis Stable Extremities: Normal Inspection, Normal Range of Motion, Non-Tender, No Pedal Edema, Normal Capillary Refill Skin: Warm, Dry, Intact Psy/Mental Status: Alert, Normal Affect, Normal Mood Sepsis Event Note - Evaluation Sepsis Screening Result: Sepsis Risk - Focused Exam Vital Signs: Vital Signs Temp Pulse Resp BP BP Pulse Ox Pulse Ox 05/13/20 08:52 91 L 05/13/20 08:37 98/81 05/13/20 08:00 97.3 F 80 30 H 106/60 88 L 05/13/20 05:40 85 L 05/13/20 05:35 77 L 05/13/20 03:50 89 L 05/13/20 03:40 88 L 05/13/20 03:30 87 L 05/13/20 03:20 86 L 05/13/20 03:10 86 L 05/13/20 03:09 96.9 F 77 36 H 113/72 87 L 05/13/20 03:08 87 L 05/13/20 03:00 76 L 05/13/20 02:50 79 L 05/13/20 02:40 85 L 05/13/20 02:30 86 L - Problem List & Annotations (1) Acute hypoxemic respiratory failure due to COVID-19 SNOMED Code(s): 163834482 Code(s): U07.1 - COVID-19; J96.01 - ACUTE RESPIRATORY FAILURE WITH HYPOXIA Status: Acute Current Visit: Yes (2) Acute kidney injury due to COVID-19 SNOMED Code(s): 132870059 Code(s): U07.1 - COVID-19; N17.9 - ACUTE KIDNEY FAILURE, UNSPECIFIED Status: Acute Current Visit: Yes (3) COPD (chronic obstructive pulmonary disease) SNOMED Code(s): 72587728 Code(s): J44.9 - CHRONIC OBSTRUCTIVE PULMONARY DISEASE, UNSPECIFIED Status: Acute Current Visit: Yes (4) Diabetes mellitus SNOMED Code(s): 40888342 Code(s): E11.9 - TYPE 2 DIABETES MELLITUS WITHOUT COMPLICATIONS Status: Acute Current Visit: Yes (5) Morbid obesity with BMI of 50.0-59.9, adult SNOMED Code(s): 016815988, 85004938992031 Code(s): E66.01 - MORBID (SEVERE) OBESITY DUE TO EXCESS CALORIES; Z68.43 - BODY MASS INDEX (BMI) 50.0-59.9, ADULT Status: Acute Current Visit: Yes (6) Pneumonia due to COVID-19 virus SNOMED Code(s): 115600719 Code(s): U07.1 - COVID-19; J12.89 - OTHER VIRAL PNEUMONIA Status: Acute Current Visit: Yes - Problem List Review Problem List Initiated/Reviewed/Updated: Yes - Assessment Assessment:: 05/09/2020 Brought in via EMS from [place] for worsening shortness of breath, hypoxemia and 2 falls associated with [place] and chills last night Vital signs Prior to transfer: Rate 128, respiratory rate 38, blood pressure 134/50 temp 100.8, felt 70% on room air Upon arrival to ED: Heart rate 113, blood pressure 144/123 (130), temperature 101.5, pulse ox 82% on room air (went up to 92% on 3 L) Placed on nasal cannula once in the emergency department did stabilize pulse ox Lab results CBC: WBC 6.8, hemoglobin 13 (macrocytic hypochromic), platelets 212 Chemistry: Sodium 133, potassium 4, chloride 95, magnesium 1.9, CO2 27, GFR 55, glucose 126 LFTs: Total bilirubin 0.4, alkaline phosphatase 46, AST 43, ALT 52, total protein 7.1, albumin 3.2 D-dimer 0.85 Lactate 0.9 Ferritin 243 proBNP 226 CRP 14 ABGs: 7.38/40 5.1/80 9/ 6.1/95.1 on 3 L nasal cannula Hemoglobin A1c 6.7 COVID 19 + Other results: Chest x-ray: Bilateral patchy infiltrates throughout lung [place], diminished lung size, no pleural effusions EKG: Left axis deviation, Q waves in inferior and anterior leads (III, aVF, V4 through V6) 05/10/2020 * Continued worsening oxygenation secondary to COVID-19. * Patient is at very high risk for worsening and severe symptoms secondary to his underlying medical conditions including: Diabetes, hypertension, and morbid obesity. * His creatinine kinase is significantly elevated (over 9000) for unknown reason. * Vital signs stable, T-max 101.5 yesterday morning, * White blood cell count decreased to 1.7. * CRP slightly increased at 16.4. * Troponin 0.039. * D-dimer is 0.87. * Blood sugars ranging from 218 down to 137 * Anticipate increasing blood sugars secondary to dexamethasone * started on remdesivir, dexamethasone, Actemra yesterday 05/11/2020 * Continuing worsening oxygenation requiring high flow nasal cannula. * Patient continues to have minimal shortness of breath at rest. * WBC increased to 2.96. * CRP significantly decreased to 6.6 from 16.4. * D-dimer slightly higher at 1.05. * Mag is slightly low at 1.7. * AST increased to 273, but ALT is 92. ALT is still less than 5 times the upper limit of normal, therefore not a contraindication to remdesivir. * Patient continues on remdesivir, dexamethasone, and 1 unit of convalescent plasma. He only received 1 unit last night secondary to concerns of fluid overload. * Patient received 40 mg of Lasix IV after his first unit of convalescent narcisa sma. * Finished Actemra * Renal function is still good at GFR greater than 60, creatinine 1.2, but BUN slightly elevated at 28 * Blood sugars ranging from mid 100s up to 302. * Patient currently on Lantus 5 units at bedtime and sliding scale Humalog 05/12/2020 * Mild worsening of oxygenation requiring a increase in high flow nasal cannula. 30 L/min at 80% FiO2. * Vital signs: Afebrile, blood pressure stable, respiratory rate 20-30, heart rate 80s * WBC 3.06increased * CRP 3.8decreased * D-dimer 0.80decreased * Renal function: GFR greater than 60, creatinine 1.0 * Remdesivir 4 of 5 days, dexamethasone day 4 of 10 days, completed Actemra, completed 2 units of convalescent plasma * Azithromycin third day of 3, ceftriaxone day 3 of 5 * Blood sugars improved, ranging from 142 to 252 * Currently on Lantus 10 units at bedtime, increased from yesterday * Liver enzymes improved, AST 189, ALT 84. 05/13/2020 * Patient relatively stable today with continued 30 L/min at 80% FiO2 on high flow nasal cannula. * Vital signs stable. Blood pressure well controlled. Afebrile. Weight is down 3-1/2 kg from yesterday. * No labs today since yesterday's were stable and improved. * Fingerstick blood sugar still as high as 307. * Day 4 of ceftriaxone, day 5 of 10 of dexamethasone. * Completed remdesivir, Actemra, and 2 units of convalescent plasma * Increase Lantus tomorrow * Patient had no significant improvement or worsening today. Anticipate that he will slowly begin to improve over the next several days. We will likely have to accept oxygenation in the upper 80s to low 90s with O2 at time of discharge. - Plan Plan:: Pneumonia due to COVID-19 virus Acute hypoxemic respiratory failure due to COVID-19 Leukopenia Pneumonia PLAN * Remdesivir completed * dexamethasone 6 mg orally day 5 of 10 days * Actemra x2 doses completed * Give second unit of convalescent plasma * High flow nasal cannula to keep oxygenation between 85 and 93% * Ceftriaxone 4 of 5 days * Repeat labs in the morning. COPD (chronic obstructive pulmonary disease) COPD, not oxygen dependent at home Only home treatment is albuterol HFA twice daily PLAN Monitor oxygenation Goal pulse ox above 84 albuterol prn Obstructive sleep apnea Endorses full compliance with nightly CPAP for [place] Pressure is 8, last adjustment about a year ago PLAN Use CPAP at night if it is comfortable for him and gives adequate oxygenation otherwise use high flow nasal cannula Hypertension Blood pressure control is unable to be determined as patient was short of breath and in distress with initial vital signs Home management with amlodipine 10 and losartan 100 PLAN Continue home amlodipine and losartan PRN hydralazine for SBP above 200 and DBP above 100 Diabetes mellitus, HbA1c6.7% Diabetes appears to be controlled A1c of 6.7, might be a little bit different due to patient being anemic Glucose at home ranges between 125 and 145 as per patient Home management with metformin and glipizide Has never been on insulin Patient will be started on dexamethasone as per COVID management for which low dose long-acting insulin will be started and adjusted as necessary PLAN Scheduled Accu-Cheks before meals and at bedtime Hypoglycemia protocol Continue glargine to 10 units at bedtime -Add 3 units in the morning of glargine -Sliding scale insulin Hold home metformin and glipizide during admission Microcytic hypochromic anemia Chronicity unknown Alters hemoglobin A1c measurement marginally PLAN Iron panel ordered Blood smear ordered Goal hemoglobin above 8 Acute kidney injury due to [id number] Baseline GFR is unknown GFR on admission is 55 Sodium 133 PLAN -Stop IV fluids Encourage p.o. fluid intake Monitor urine output. Strict I's and O's Repeat labs as needed Elevated LFTs -Continue monitoring but no indication to stop remdesivir Hypoalbuminemia Morbid obesity with BMI of 50.0-59.9, adult Patient endorses very poor eating habits Has minimal daily activity pivoting to and from his scooter PLAN * Encourage adequate diet and supplements Hypothyroidism No acute issues identified On home levothyroxine 75 mcg PLAN * Continue home levothyroxine Dyslipidemia Patient likely has undiagnosed coronary artery disease * Identified Q waves on EKG in anterolateral leads and inferior leads Home management with atorvastatin 10, unsure if this covers his ASCVD risk PLAN * New lipid panel * Continue atorvastatin and aspirin for now Gout Denies any previous exacerbations On home allopurinol 400 daily PLAN Continue home allopurinol at 400 daily for now PROPHYLAXIS DVTLovenox twice daily GInot indicated CODE STATUS: DO NOT INTUBATE, confirmed with patient that he changed his mind from previous advanced directives PROGNOSIS: Patient has a very poor prognosis. He has multiple medical problems and is morbidly obese. This places him at a very high risk for complications and mortality. I discussed this with the patient. He stated he did not want to be intubated, but he would want CPR. DISPOSITION: Patient will be fully admitted to medical treatment with Remdesivir, dexamethasone and Actemra for now, depending on progress will start plasma and oxygen supplementation. Length of stay greater than 96 hours due to poor improvement and per Remdesivir treatment regimen requirements. SOCIAL: Patient is a resident of [place], lives with his there who is medical power of stamps or coins salesperson. Normally does pivot to his scooter but has not been able to do so in the past couple of days Not oxygen dependent at home PCP is Dr. Robert
[2020-05-13] MEDS ORDERED: Sodium Chloride 0.9% 250 ML IV SCH (16:30)
[2020-05-13] MEDS: traZODone 50 MG Tab PO PRN (20:02)
[2020-05-13] MEDS: Insulin Glarg,Human.Rec.Analog 100 Unit/ML SUBCUT SCH (20:04)
[2020-05-14] MEDS: Insulin Lispro 100 Units/ML 3 ML Vial SUBCUT SCH ×5 (06:09→22:23)
[2020-05-14] MEDS: Losartan 100 MG Tab PO SCH (08:44)
[2020-05-14] MEDS: Spironolactone 25 MG Tab PO SCH (08:44)
[2020-05-14] MEDS: Simvastatin 20 MG Tab PO SCH (08:44)
[2020-05-14] MEDS: Calcium Carbonate/Vitamin D3 600 MG-200 Units Tab PO SCH (08:44)
[2020-05-14] MEDS: Aspirin 81 MG Tab.Chew PO SCH (08:44)
[2020-05-14] MEDS: Allopurinol 100 MG Tab PO SCH (08:45)
[2020-05-14] MEDS: Furosemide 40 MG Tab PO SCH (08:45)
[2020-05-14] MEDS: Dexamethasone 4 MG Tab PO SCH (08:48)
[2020-05-14] MEDS: Enoxaparin 40 MG/0.4 ML Syringe SUBCUT SCH ×2 (08:56→20:28)
[2020-05-14] MEDS: Insulin Glarg,Human.Rec.Analog 100 Unit/ML SUBCUT SCH ×2 (09:04→20:28)
[2020-05-14] MEDS: cefTRIAXone 2 GM in Sodium Chloride 0.9% 100 ML IV SCH (09:31)
[2020-05-14] MEDS: Levothyroxine 50 MCG Tab PO SCH (09:47)
[2020-05-14] MEDS: traZODone 50 MG Tab PO PRN (20:31)
[2020-05-14] MEDS: Melatonin 3 MG Tab PO PRN ×2 (20:31→23:44)
--- NOTE | 2020-05-14 20:35 | PCM.PN ---
- General Info Date of Service: 05/14/20 Admission Dx/Problem (Free Text): Admission Diagnosis/Problem Admission Diagnosis/Problem Viral pneumonia Subjective Update: Isaura continues to be stable on high flow nasal cannula with his oxygen saturations in the mid 80s. He is able to get up and around more without as much shortness of breath or the satting. Appetite has significantly decreased. Functional Status: Reports: Pain Controlled - Review of Systems General: Reports: No Symptoms HEENT: Reports: No Symptoms Pulmonary: Reports: Shortness of Breath Cardiovascular: Reports: No Symptoms Gastrointestinal: Reports: Decreased Appetite Musculoskeletal: Reports: No Symptoms - Patient Data Vitals - Most Recent: Last Vital Signs Temp 97.1 F 05/14/20 16:00 Pulse 75 05/14/20 16:00 Resp 22 H 05/14/20 16:00 BP 114/63 05/14/20 16:00 Pulse Ox 86 L 05/14/20 18:28 Weight - Most Recent: 163.203 kg I&O - Last 24 Hours: Intake & Output 05/14/20 05/14/20 05/14/20 06:59 14:59 22:59 Intake Total 500 Output Total 455 925 650 Balance 45 925 -650 Lab Results Last 24 Hours: Laboratory Results - last 24 hr 05/14/20 05/14/20 05/14/20 Range/Units 05:11 05:11 05:11 WBC 3.76 L (4.23-9.07) K/mm3 RBC 5.22 (4.63-6.08) M/mm3 Hgb 15.5 (13.7-17.5) gm/dl Hct 47.8 (40.1-51.0) % MCV 91.6 (79.0-92.2) fl MCH 29.7 (25.7-32.2) pg MCHC 32.4 (32.2-35.5) g/dl RDW Std Deviation 44.0 H (35.1-43.9) fL Plt Count 239 (163-337) K/mm3 MPV 9.7 (9.4-12.3) fl Neut % (Auto) 57.6 (34.0-67.9) % Lymph % (Auto) 25.3 (21.8-53.1) % [place] % (Auto) 16.5 H (5.3-12.2) % Eos % (Auto) 0 L (0.8-7.0) Baso % (Auto) 0.3 (0.1-1.2) % Neut # (Auto) 2.17 (1.78-5.38) K/mm3 Lymph # (Auto) 0.95 L (1.32-3.57) K/mm3 [place] # (Auto) 0.62 (0.30-0.82) K/mm3 Eos # (Auto) 0.00 L (0.04-0.54) K/mm3 Baso # (Auto) 0.01 (0.01-0.08) K/mm3 Manual Slide Review Abnormal smear D-Dimer, Quantitative 1.07 H (0.19-0.50) mg/L Sodium 138 (136-145) mEq/L Potassium 4.2 (3.5-5.1) mEq/L Chloride 99 (98-107) mEq/L Carbon Dioxide 32 (21-32) mEq/L Anion Gap 11.2 (5-15) BUN 34 H (7-18) mg/dL Creatinine 1.0 (0.7-1.3) mg/dL Est Cr Clr Drug Dosing 65.18 mL/min Estimated GFR (MDRD) > 60 (>60) mL/min BUN/Creatinine Ratio 34.0 H (14-18) Glucose 118 H (80-115) mg/dL POC Glucose (80-115) mg/dL Calcium 8.9 (8.5-10.1) mg/dL Phosphorus 3.9 (2.6-4.7) mg/dL Magnesium 1.8 (1.8-2.4) mg/dl Total Bilirubin 0.3 (0.2-1.0) mg/dL AST 106 H (15-37) U/L ALT 77 H (16-63) U/L Alkaline Phosphatase 44 L (46-116) U/L C-Reactive Protein 1.2 H* (<1.0) mg/dL Total Protein 7.0 (6.4-8.2) g/dl Albumin 3.0 L (3.4-5.0) g/dl Globulin 4.0 gm/dL Albumin/Globulin Ratio 0.8 L (1-2) 05/14/20 05/14/20 05/14/20 Range/Units 05:58 09:04 11:44 WBC (4.23-9.07) K/mm3 RBC (4.63-6.08) M/mm3 Hgb (13.7-17.5) gm/dl Hct (40.1-51.0) % MCV (79.0-92.2) fl MCH (25.7-32.2) pg MCHC (32.2-35.5) g/dl RDW Std Deviation (35.1-43.9) fL Plt Count (163-337) K/mm3 MPV (9.4-12.3) fl Neut % (Auto) (34.0-67.9) % Lymph % (Auto) (21.8-53.1) % [place] % (Auto) (5.3-12.2) % Eos % (Auto) (0.8-7.0) Baso % (Auto) (0.1-1.2) % Neut # (Auto) (1.78-5.38) K/mm3 Lymph # (Auto) (1.32-3.57) K/mm3 [place] # (Auto) (0.30-0.82) K/mm3 Eos # (Auto) (0.04-0.54) K/mm3 Baso # (Auto) (0.01-0.08) K/mm3 Manual Slide Review D-Dimer, Quantitative (0.19-0.50) mg/L Sodium (136-145) mEq/L Potassium (3.5-5.1) mEq/L Chloride (98-107) mEq/L Carbon Dioxide (21-32) mEq/L Anion Gap (5-15) BUN (7-18) mg/dL Creatinine (0.7-1.3) mg/dL Est Cr Clr Drug Dosing mL/min Estimated GFR (MDRD) (>60) mL/min BUN/Creatinine Ratio (14-18) Glucose (80-115) mg/dL POC Glucose 116 H 122 H 155 H (80-115) mg/dL Calcium (8.5-10.1) mg/dL Phosphorus (2.6-4.7) mg/dL Magnesium (1.8-2.4) mg/dl Total Bilirubin (0.2-1.0) mg/dL AST (15-37) U/L ALT (16-63) U/L Alkaline Phosphatase (46-116) U/L C-Reactive Protein (<1.0) mg/dL Total Protein (6.4-8.2) g/dl Albumin (3.4-5.0) g/dl Globulin gm/dL Albumin/Globulin Ratio (1-2) 05/14/20 05/14/20 Range/Units 17:43 20:30 WBC (4.23-9.07) K/mm3 RBC (4.63-6.08) M/mm3 Hgb (13.7-17.5) gm/dl Hct (40.1-51.0) % MCV (79.0-92.2) fl MCH (25.7-32.2) pg MCHC (32.2-35.5) g/dl RDW Std Deviation (35.1-43.9) fL Plt Count (163-337) K/mm3 MPV (9.4-12.3) fl Neut % (Auto) (34.0-67.9) % Lymph % (Auto) (21.8-53.1) % [place] % (Auto) (5.3-12.2) % Eos % (Auto) (0.8-7.0) Baso % (Auto) (0.1-1.2) % Neut # (Auto) (1.78-5.38) K/mm3 Lymph # (Auto) (1.32-3.57) K/mm3 [place] # (Auto) (0.30-0.82) K/mm3 Eos # (Auto) (0.04-0.54) K/mm3 Baso # (Auto) (0.01-0.08) K/mm3 Manual Slide Review D-Dimer, Quantitative (0.19-0.50) mg/L Sodium (136-145) mEq/L Potassium (3.5-5.1) mEq/L Chloride (98-107) mEq/L Carbon Dioxide (21-32) mEq/L Anion Gap (5-15) BUN (7-18) mg/dL Creatinine (0.7-1.3) mg/dL Est Cr Clr Drug Dosing mL/min Estimated GFR (MDRD) (>60) mL/min BUN/Creatinine Ratio (14-18) Glucose (80-115) mg/dL POC Glucose 232 H 181 H (80-115) mg/dL Calcium (8.5-10.1) mg/dL Phosphorus (2.6-4.7) mg/dL Magnesium (1.8-2.4) mg/dl Total Bilirubin (0.2-1.0) mg/dL AST (15-37) U/L ALT (16-63) U/L Alkaline Phosphatase (46-116) U/L C-Reactive Protein (<1.0) mg/dL Total Protein (6.4-8.2) g/dl Albumin (3.4-5.0) g/dl Globulin gm/dL Albumin/Globulin Ratio (1-2) Alberto Results Last 24 Hours: Microbiology 05/09/20 09:35 Aerobic Blood Culture - Preliminary Blood - Venous NO GROWTH AFTER 5 DAYS Anaerobic Blood Culture - Preliminary NO GROWTH AFTER 5 DAYS 05/09/20 09:23 Aerobic Blood Culture - Preliminary Blood - Venous - Lab Draw NO GROWTH AFTER 5 DAYS Anaerobic Blood Culture - Preliminary NO GROWTH AFTER 5 DAYS Med Orders - Current: Current Medications Acetaminophen (Tylenol) 650 mg PO Q4H PRN PRN Reason: Pain (Mild 1-3)/fever Albuterol (Proventil Hfa) 0 gm INH Q2H PRN PRN Reason: Wheezing Allopurinol (Zyloprim) 400 mg PO DAILY [facility] Last Admin: 05/14/20 08:45 Dose: 400 mg Documented by: Aspirin (Aspirin) 81 mg PO DAILY [facility] Last Admin: 05/14/20 08:44 Dose: 81 mg Documented by: Calcium Carbonate (Calcium Carbonate/Vitamin D 600 Mg-200 Unit) 1 tab PO DAILY [facility] Last Admin: 05/14/20 08:44 Dose: 1 tab Documented by: Dexamethasone (Dexamethasone) 6 mg PO DAILY [facility] Stop: 05/18/20 09:01 Last Admin: 05/14/20 08:48 Dose: 6 mg Documented by: Dextrose/Water (Dextrose 50% In Water) 50 ml IVPUSH ASDIRECTED PRN PRN Reason: Hypoglycemia Enoxaparin Sodium (Lovenox) 40 mg SUBCUT BID [facility] Last Admin: 05/14/20 20:28 Dose: 40 mg Documented by: Furosemide (Lasix) 40 mg PO DAILY [facility] Last Admin: 05/14/20 08:45 Dose: 40 mg Documented by: Hydralazine HCl (Apresoline) 10 mg IVPUSH Q2H PRN PRN Reason: Hypertension Insulin Glargine (Lantus) 10 unit SUBCUT BEDTIME [facility] Last Admin: 05/14/20 20:28 Dose: 10 units Documented by: Insulin Glargine (Lantus) 3 unit SUBCUT DAILY [facility] Last Admin: 05/14/20 09:04 Dose: 3 unit Documented by: Insulin Human Lispro (Humalog) 0 unit SUBCUT QIDACANDBED [facility]; Protocol Last Admin: 05/14/20 20:30 Dose: 1 units Documented by: Levothyroxine Sodium (Levothyroxine) 25 mcg PO SuTuThSa [facility] Last Admin: 05/13/20 13:16 Dose: 25 mcg Documented by: Levothyroxine Sodium (Synthroid) 50 mcg PO MoWeFr [facility] Last Admin: 05/14/20 09:47 Dose: 50 mcg Documented by: Losartan Potassium (Cozaar) 100 mg PO DAILY [facility] Last Admin: 05/14/20 08:44 Dose: 100 mg Documented by: Melatonin (Melatonin) 9 mg PO BEDTIME PRN PRN Reason: Insomnia Last Admin: 05/14/20 20:31 Dose: 9 mg Documented by: Nystatin (Nystop) 1 gm TOP QID PRN PRN Reason: excoriation Last Admin: 05/12/20 20:28 Dose: 1 applic Documented by: Ondansetron HCl (Zofran Odt) 4 mg PO Q6H PRN PRN Reason: nausea, able to take PO Ondansetron HCl (Zofran) 4 mg IV Q6H PRN PRN Reason: Nausea/Vomiting Simvastatin (Zocor) 20 mg PO DAILY [facility] Last Admin: 05/14/20 08:44 Dose: 20 mg Documented by: Spironolactone (Aldactone) 25 mg PO DAILY [facility] Last Admin: 05/14/20 08:44 Dose: 25 mg Documented by: Trazodone HCl (Trazodone) 50 mg PO BEDTIME PRN PRN Reason: Insomnia Last Admin: 05/14/20 20:31 Dose: 50 mg Documented by: Discontinued Medications Acetaminophen (Tylenol) 975 mg PO ONETIME ONE Stop: 05/09/20 08:57 Last Admin: 05/09/20 09:34 Dose: 975 mg Documented by: Dexamethasone (Dexamethasone) 6 mg IVPUSH Q24H [facility] Last Admin: 05/10/20 11:31 Dose: 6 mg Documented by: Enoxaparin Sodium (Lovenox) 40 mg SUBCUT Q12H [facility] Last Admin: 05/10/20 22:50 Dose: Not Given Documented by: Furosemide (Lasix) 40 mg IVPUSH ONETIME ONE Stop: 05/10/20 21:16 Last Admin: 05/10/20 21:35 Dose: 40 mg Documented by: Furosemide (Lasix) 20 mg IVPUSH ONETIME ONE Stop: 05/11/20 16:01 Last Admin: 05/11/20 16:18 Dose: 20 mg Documented by: Furosemide (Lasix) 40 mg IVPUSH NOW ONE Stop: 05/12/20 09:01 Last Admin: 05/12/20 09:06 Dose: 40 mg Documented by: Sodium Chloride (Normal Saline) 1,000 mls @ 150 mls/hr IV ASDIRECTED [facility] Last Admin: 05/10/20 11:31 Dose: 150 mls/hr Documented by: Remdesivir 200 mg/ Sodium (Chloride) 250 mls @ 250 mls/hr IV ONETIME ONE Stop: 05/09/20 12:59 Last Admin: 05/09/20 11:47 Dose: 250 mls/hr Documented by: Remdesivir 100 mg/ Sodium (Chloride) 100 mls @ 100 mls/hr IV Q24H [facility] Stop: 05/13/20 12:59 Last Admin: 05/13/20 12:26 Dose: 100 mls/hr Documented by: Tocilizumab 800 mg/ Sodium (Chloride) 100 mls @ 100 mls/hr IV Q12H [facility] Stop: 05/10/20 01:59 Tocilizumab 800 mg/ Sodium (Chloride) 100 mls @ 100 mls/hr IV Q12H [facility] Stop: 05/10/20 01:59 Last Admin: 05/10/20 00:42 Dose: 100 mls/hr Documented by: Ceftriaxone Sodium 2 gm/ (Sodium Chloride) 100 mls @ 200 mls/hr IV Q24H [facility] Stop: 05/14/20 09:29 Last Admin: 05/14/20 09:31 Dose: 200 mls/hr Documented by: Azithromycin 500 mg/ Sodium (Chloride) 250 mls @ 250 mls/hr IV Q24H [facility] Stop: 05/12/20 10:29 Last Admin: 05/12/20 10:22 Dose: 250 mls/hr Documented by: Sodium Chloride (Normal Saline) 1,000 mls @ 50 mls/hr IV ASDIRECTED [facility] Sodium Chloride (Normal Saline) Confirm Administered Dose 250 mls @ as directed .ROUTE .STK-MED ONE Stop: 05/11/20 11:04 Last Admin: 05/11/20 11:35 Dose: 500 mls/hr Documented by: Magnesium Sulfate 2 gm/ Premix 50 mls @ 25 mls/hr IV ONETIME ONE Stop: 05/11/20 17:29 Last Admin: 05/11/20 16:17 Dose: 25 mls/hr Documented by: Insulin Glargine (Lantus) 5 unit SUBCUT BEDTIME [facility] Last Admin: 05/10/20 20:40 Dose: 5 units Documented by: Levothyroxine Sodium (Levothyroxine) 50 mcg PO MoWeFr [facility] Last Admin: 05/10/20 10:26 Dose: Not Given Documented by: Tocilizumab (Actemra) 800 mg IV Q12HR [facility] Stop: 05/10/20 09:01 - Exam Quality Assessment: Supplemental Oxygen (High flow nasal cannula) General: Alert, Oriented HEENT: Pupils Equal, Mucous Membr. Moist/[place] Neck: Supple Lungs: Normal Respiratory Effort (Increased respiratory effort and rate), Crackles (Improved) Cardiovascular: Regular Rate, Regular Rhythm GI/Abdominal Exam: Normal Bowel Sounds, Soft, Non-Tender, No Distention Extremities: Normal Inspection, Normal Range of Motion, No Pedal Edema, Normal Capillary Refill Skin: Warm, Dry, Intact Psy/Mental Status: Alert, Normal Affect, Normal Mood Sepsis Event Note - Evaluation Sepsis Screening Result: Sepsis Risk - Focused Exam Vital Signs: Vital Signs Temp Pulse Resp BP BP Pulse Ox Pulse Ox 05/14/20 18:28 86 L 05/14/20 16:00 97.1 F 75 22 H 114/63 05/14/20 14:20 88 L 05/14/20 14:10 84 L 05/14/20 14:00 79 L 05/14/20 13:57 118/89 85 L 05/14/20 13:56 82 L 05/14/20 13:50 84 L 05/14/20 13:40 83 L 05/14/20 13:30 83 L 05/14/20 13:20 83 L 05/14/20 13:10 85 L 05/14/20 13:00 92 L 05/14/20 12:50 89 L 05/14/20 12:40 91 L 05/14/20 12:30 83 L 05/14/20 12:29 84 L 05/14/20 12:20 79 L 05/14/20 12:15 90 L 05/14/20 12:10 67 L 05/14/20 12:00 76 22 H 118/89 88 L 05/14/20 11:50 75 L 05/14/20 11:40 81 L 05/14/20 11:30 83 L 05/14/20 11:20 84 L 05/14/20 11:10 85 L 05/14/20 11:00 82 L 05/14/20 10:50 85 L 05/14/20 10:40 84 L 05/14/20 10:30 86 L 05/14/20 10:20 90 L 05/14/20 10:10 88 L 05/14/20 10:00 87 L 90 L 05/14/20 09:50 90 L 05/14/20 09:40 75 L 05/14/20 09:30 66 L 05/14/20 09:20 83 L 05/14/20 09:10 78 L 05/14/20 09:07 120/67 81 L 05/14/20 09:06 78 L 05/14/20 09:00 78 L 05/14/20 08:50 61 L 05/14/20 08:44 132/85 05/14/20 08:40 87 L - Problem List & Annotations (1) Acute hypoxemic respiratory failure due to COVID-19 SNOMED Code(s): 991642698 Code(s): U07.1 - COVID-19; J96.01 - ACUTE RESPIRATORY FAILURE WITH HYPOXIA Status: Acute Current Visit: Yes (2) Acute kidney injury due to COVID-19 SNOMED Code(s): 431382269 Code(s): U07.1 - COVID-19; N17.9 - ACUTE KIDNEY FAILURE, UNSPECIFIED Status: Acute Current Visit: Yes (3) COPD (chronic obstructive pulmonary disease) SNOMED Code(s): 21648950 Code(s): J44.9 - CHRONIC OBSTRUCTIVE PULMONARY DISEASE, UNSPECIFIED Status: Acute Current Visit: Yes (4) Diabetes mellitus SNOMED Code(s): 19125669 Code(s): E11.9 - TYPE 2 DIABETES MELLITUS WITHOUT COMPLICATIONS Status: Acute Current Visit: Yes (5) Morbid obesity with BMI of 50.0-59.9, adult SNOMED Code(s): 117396662, 83130864420643 Code(s): E66.01 - MORBID (SEVERE) OBESITY DUE TO EXCESS CALORIES; Z68.43 - BODY MASS INDEX (BMI) 50.0-59.9, ADULT Status: Acute Current Visit: Yes (6) Pneumonia due to COVID-19 virus SNOMED Code(s): 304936882 Code(s): U07.1 - COVID-19; J12.89 - OTHER VIRAL PNEUMONIA Status: Acute Current Visit: Yes - Problem List Review Problem List Initiated/Reviewed/Updated: Yes - My Orders Last 24 Hours: My Active Orders 05/14/20 09:00 Insulin Glarg,Human.Rec.Analog [LantUS] 3 unit SUBCUT DAILY - Assessment Assessment:: 05/09/2020 Brought in via EMS from [place] for worsening shortness of breath, hypoxemia and 2 falls associated with [place] and chills last night Vital signs Prior to transfer: Rate 128, respiratory rate 38, blood pressure 134/50 temp 100.8, felt 70% on room air Upon arrival to ED: Heart rate 113, blood pressure 144/123 (130), temperature 101.5, pulse ox 82% on room air (went up to 92% on 3 L) Placed on nasal cannula once in the emergency department did stabilize pulse ox Lab results CBC: WBC 6.8, hemoglobin 13 (macrocytic hypochromic), platelets 212 Chemistry: Sodium 133, potassium 4, chloride 95, magnesium 1.9, CO2 27, GFR 55, glucose 126 LFTs: Total bilirubin 0.4, alkaline phosphatase 46, AST 43, ALT 52, total protein 7.1, albumin 3.2 D-dimer 0.85 Lactate 0.9 Ferritin 243 proBNP 226 CRP 14 ABGs: 7.38/40 5.1/80 /20 6.1/95.1 on 3 L nasal cannula Hemoglobin A1c 6.7 COVID 19 + Other results: Chest x-ray: Bilateral patchy infiltrates throughout lung [place], diminished lung size, no pleural effusions EKG: Left axis deviation, Q waves in inferior and anterior leads (III, aVF, V4 through V6) 05/10/2020 * Continued worsening oxygenation secondary to COVID-19. * Patient is at very high risk for worsening and severe symptoms secondary to his underlying medical conditions including: Diabetes, hypertension, and morbid obesity. * His creatinine kinase is significantly elevated (over 9000) for unknown reason. * Vital signs stable, T-max 101.5 yesterday morning, * White blood cell count decreased to 1.7. * CRP slightly increased at 16.4. * Troponin 0.039. * D-dimer is 0.87. * Blood sugars ranging from 218 down to 137 * Anticipate increasing blood sugars secondary to dexamethasone * started on remdesivir, dexamethasone, Actemra yesterday 05/11/2020 * Continuing worsening oxygenation requiring high flow nasal cannula. * Patient continues to have minimal shortness of breath at rest. * WBC increased to 2.96. * CRP significantly decreased to 6.6 from 16.4. * D-dimer slightly higher at 1.05. * Mag is slightly low at 1.7. * AST increased to 273, but ALT is 92. ALT is still less than 5 times the upper limit of normal, therefore not a contraindication to remdesivir. * Patient continues on remdesivir, dexamethasone, and 1 unit of convalescent plasma. He only received 1 unit last night secondary to concerns of fluid overload. * Patient received 40 mg of Lasix IV after his first unit of convalescent plasma. * Finished Actemra * Renal function is still good at GFR greater than 60, creatinine 1.2, but BUN slightly elevated at 28 * Blood sugars ranging from mid 100s up to 302. * Patient currently on Lantus 5 units at bedtime and sliding scale Humalog 05/12/2020 * Mild worsening of oxygenation requiring a increase in high flow nasal cannula. 30 L/min at 80% FiO2. * Vital signs: Afebrile, blood pressure stable, respiratory rate 20-30, heart rate 80s * WBC 3.06increased * CRP 3.8decreased * D-dimer 0.80decreased * Renal function: GFR greater than 60, creatinine 1.0 * Remdesivir 4 of 5 days, dexamethasone day 4 of 10 days, completed Actemra, completed 2 units of convalescent plasma * Azithromycin third day of 3, ceftriaxone day 3 of 5 * Blood sugars improved, ranging from 142 to 252 * Currently on Lantus 10 units at bedtime, increased from yesterday * Liver enzymes improved, AST 189, ALT 84. 05/13/2020 * Patient relatively stable today with continued 30 L/min at 80% FiO2 on high flow nasal cannula. * Vital signs stable. Blood pressure well controlled. Afebrile. Weight is down 3-1/2 kg from yesterday. * No labs today since yesterday's were stable and improved. * Fingerstick blood sugar still as high as 307. * Day 4 of ceftriaxone, day 5 of 10 of dexamethasone. * Completed remdesivir, Actemra, and 2 units of convalescent plasma * Increase Lantus tomorrow * Patient had no significant improvement or worsening today. Anticipate that he will slowly begin to improve over the next several days. We will likely have to accept oxygenation in the upper 80s to low 90s with O2 at time of discharge. 05/14/2020 * No significant change in respiratory status. Slightly improved but not significantly. * Labs continue to improve. D-dimer 1.07, C-reactive protein 1.2, AST 106, ALT 77, white count 3.76 * Estimated GFR greater than 60 * Day 5 of ceftriaxone * Day 6 of dexamethasone * Slightly increased Lantus by 3 units this morning and 10 units at night - Plan Plan:: Pneumonia due to COVID-19 virus Acute hypoxemic respiratory failure due to COVID-19 Leukopenia Pneumonia PLAN * Remdesivir completed * dexamethasone 6 mg orally day 6 of 10 days * Actemra x2 doses completed * 2 units of convalescent plasma completed * High flow nasal cannula to keep oxygenation between 85 and 93% * Ceftriaxone completed COPD (chronic obstructive pulmonary disease) COPD, not oxygen dependent at home Only home treatment is albuterol HFA twice daily Patient states home oxygen saturations are generally between 85 and 90% PLAN Monitor oxygenation Goal pulse ox above 84 albuterol prn Obstructive sleep apnea Endorses full compliance with nightly CPAP for [place] Pressure is 8, last adjustment about a year ago PLAN Use CPAP at night if it is comfortable for him and gives adequate oxygenation otherwise use high flow nasal cannula Hypertension Blood pressure control is unable to be determined as patient was short of breath and in distress with initial vital signs Home management with amlodipine 10 and losartan 100 PLAN Continue home amlodipine and losartan PRN hydralazine for SBP above 200 and DBP above 100 Diabetes mellitus, HbA1c6.7% Diabetes appears to be controlled A1c of 6.7, might be a little bit different due to patient being anemic Glucose at home ranges between 125 and 145 as per patient Home management with metformin and glipizide Has never been on insulin Patient will be started on dexamethasone as per COVID management for which low dose long-acting insulin will be started and adjusted as necessary PLAN Scheduled Accu-Cheks before meals and at bedtime Hypoglycemia protocol Continue glargine 3 units in the morning and 10 units at bedtime -Sliding scale insulin Hold home metformin and glipizide during admission Microcytic hypochromic anemia Chronicity unknown Alters hemoglobin A1c measurement marginally Acute kidney injury due to [id number] Baseline GFR is unknown GFR on admission is 55 PLAN Encourage p.o. fluid intake Monitor urine output. Strict I's and O's Elevated LFTs -Continue monitoring but no indication to stop remdesivir Hypoalbuminemia Morbid obesity with BMI of 50.0-59.9, adult Patient endorses very poor eating habits Has minimal daily activity pivoting to and from his scooter PLAN * Encourage adequate diet and supplements Hypothyroidism No acute issues identified On home levothyroxine 75 mcg PLAN * Continue home levothyroxine Dyslipidemia Patient likely has undiagnosed coronary artery disease * Identified Q waves on EKG in anterolateral leads and inferior leads Home management with atorvastatin 10, unsure if this covers his ASCVD risk PLAN * Continue atorvastatin and aspirin for now Gout Denies any previous exacerbations On home allopurinol 400 daily PLAN Continue home allopurinol at 400 daily for now PROPHYLAXIS DVTLovenox twice daily GInot indicated CODE STATUS: DO NOT INTUBATE, confirmed with patient that he changed his mind from previous advanced directives PROGNOSIS: Patient has a very poor prognosis. He has multiple medical problems and is morbidly obese. This places him at a very high risk for complications and mortality. I discussed this with the patient. He stated he did not want to be intubated, but he would want CPR. DISPOSITION: Patient will be fully admitted to medical treatment with Remdesivir, dexamethasone and Actemra for now, depending on progress will start plasma and oxygen supplementation. Length of stay greater than 96 hours due to poor improvement and per Remdesivir treatment regimen requirements. SOCIAL: Patient is a resident of [place], lives with his there who is medical power of flume tender. Normally does pivot to his scooter but has not been able to do so in the past couple of days Not oxygen dependent at home PCP is Dr. Robert
[2020-05-15] MEDS: Insulin Lispro 100 Units/ML 3 ML Vial SUBCUT SCH ×5 (06:35→23:12)
[2020-05-15] MEDS: Furosemide 40 MG Tab PO SCH (08:26)
[2020-05-15] MEDS: Calcium Carbonate/Vitamin D3 600 MG-200 Units Tab PO SCH (08:26)
[2020-05-15] MEDS: Aspirin 81 MG Tab.Chew PO SCH (08:27)
[2020-05-15] MEDS: Spironolactone 25 MG Tab PO SCH (08:27)
[2020-05-15] MEDS: Simvastatin 20 MG Tab PO SCH (08:28)
[2020-05-15] MEDS: Losartan 100 MG Tab PO SCH (08:28)
[2020-05-15] MEDS: Allopurinol 100 MG Tab PO SCH (08:34)
[2020-05-15] MEDS: Dexamethasone 4 MG Tab PO SCH (08:36)
[2020-05-15] MEDS: Enoxaparin 40 MG/0.4 ML Syringe SUBCUT SCH ×2 (08:53→20:58)
[2020-05-15] MEDS: Insulin Glarg,Human.Rec.Analog 100 Unit/ML SUBCUT SCH ×2 (08:57→20:54)
[2020-05-15] MEDS: Levothyroxine 25 MCG Tab PO SCH (11:25)
--- NOTE | 2020-05-15 14:41 | PCM.PN ---
- General Info Date of Service: 05/15/20 Admission Dx/Problem (Free Text): Admission Diagnosis/Problem Admission Diagnosis/Problem Viral pneumonia Subjective Update: Patient has had worsening shortness of breath and worsening oxygenation over the last day. Patient required an increase in his high flow nasal cannula to 50 L at 100% O2. Patient was then transferred to BiPAP and he required increasing pressures and increasing oxygen. Patient continued to stay in the 70s and low 80s and ultimately on a pressure of 16/8 with approximately 20 L bled in to the BiPAP his oxygen saturations settled in the mid to upper 80s. I discussed with the patient again about intubation and he stated he did not want to be intubated. I did also speak with his Tita and she understood how dire his situation and his high mortality risk. She also understands that even with intubation his likelihood of mortality is very high. She states over the last year and a half he has been unable to do anything that was not in his scooter without getting severely short of breath and turned blue. He states that at [place] they take his oxygen twice a day and it often starts at 85% and after a few deep breaths he can sometimes give it to 90%. This is on room air. He did eat 100% of his breakfast and 60% of his lunch. Patient continues to maintain adequate mentation even with oxygen saturations in the 70s. Patient likely has been operating for several months if not years with oxygen saturations in the 80s. - Review of Systems General: Reports: Fatigue. Denies: Fever Pulmonary: Reports: Shortness of Breath Cardiovascular: Reports: No Symptoms Gastrointestinal: Reports: No Symptoms Musculoskeletal: Reports: No Symptoms Skin: Reports: No Symptoms Neurological: Reports: No Symptoms Psychiatric: Reports: No Symptoms - Patient Data Vitals - Most Recent: Last Vital Signs Temp 96.0 F L 05/15/20 08:00 Pulse 75 05/15/20 08:00 Resp 34 H 05/15/20 08:00 BP 102/53 L 05/15/20 08:30 Pulse Ox 85 L 05/15/20 13:36 Weight - Most Recent: 163.293 kg I&O - Last 24 Hours: Intake & Output 05/14/20 05/15/20 05/15/20 22:59 06:59 14:59 Intake Total 200 180 Output Total 1000 600 200 Balance -1000 -400 -20 Imaging Impressions - Last 24 Hours: Chest x-ray shows worsening multifocal airspace opacity concerning for worsening of the patient's known COVID-19 pneumonia. Lab Results Last 24 Hours: Laboratory Results - last 24 hr 05/14/20 05/14/20 05/15/20 Range/Units 17:43 20:30 06:32 POC Glucose 232 H 181 H 105 (80-115) mg/dL 05/15/20 05/15/20 Range/Units 08:22 11:24 POC Glucose 130 H 216 H (80-115) mg/dL Alberto Results Last 24 Hours: Microbiology 05/09/20 09:35 Aerobic Blood Culture - Preliminary Blood - Venous NO GROWTH AFTER 6 DAYS Anaerobic Blood Culture - Preliminary NO GROWTH AFTER 6 DAYS 05/09/20 09:23 Aerobic Blood Culture - Preliminary Blood - Venous - Lab Draw NO GROWTH AFTER 6 DAYS Anaerobic Blood Culture - Preliminary NO GROWTH AFTER 6 DAYS Med Orders - Current: Current Medications Acetaminophen (Tylenol) 650 mg PO Q4H PRN PRN Reason: Pain (Mild 1-3)/fever Albuterol (Proventil Hfa) 0 gm INH Q2H PRN PRN Reason: Wheezing Allopurinol (Zyloprim) 400 mg PO DAILY [facility] Last Admin: 05/15/20 08:34 Dose: 400 mg Documented by: Aspirin (Aspirin) 81 mg PO DAILY [facility] Last Admin: 05/15/20 08:27 Dose: 81 mg Documented by: Calcium Carbonate (Calcium Carbonate/Vitamin D 600 Mg-200 Unit) 1 tab PO DAILY [facility] Last Admin: 05/15/20 08:26 Dose: 1 tab Documented by: Dexamethasone (Dexamethasone) 6 mg PO DAILY [facility] Stop: 05/18/20 09:01 Last Admin: 05/15/20 08:36 Dose: 6 mg Documented by: Dextrose/Water (Dextrose 50% In Water) 50 ml IVPUSH ASDIRECTED PRN PRN Reason: Hypoglycemia Enoxaparin Sodium (Lovenox) 40 mg SUBCUT BID [facility] Last Admin: 05/15/20 08:53 Dose: 40 mg Documented by: Furosemide (Lasix) 40 mg PO DAILY [facility] Last Admin: 05/15/20 08:26 Dose: 40 mg Documented by: Hydralazine HCl (Apresoline) 10 mg IVPUSH Q2H PRN PRN Reason: Hypertension Insulin Glargine (Lantus) 10 unit SUBCUT BEDTIME [facility] Last Admin: 05/14/20 20:28 Dose: 10 units Documented by: Insulin Glargine (Lantus) 3 unit SUBCUT DAILY [facility] Last Admin: 05/15/20 08:57 Dose: 3 unit Documented by: Insulin Human Lispro (Humalog) 0 unit SUBCUT QIDACANDBED [facility]; Protocol Last Admin: 05/15/20 11:25 Dose: 2 units Documented by: Levothyroxine Sodium (Levothyroxine) 25 mcg PO SuTuThSa [facility] Last Admin: 05/15/20 11:25 Dose: 25 mcg Documented by: Levothyroxine Sodium (Synthroid) 50 mcg PO MoWeFr [facility] Last Admin: 05/14/20 09:47 Dose: 50 mcg Documented by: Losartan Potassium (Cozaar) 100 mg PO DAILY [facility] Last Admin: 05/15/20 08:28 Dose: 100 mg Documented by: Melatonin (Melatonin) 9 mg PO BEDTIME PRN PRN Reason: Insomnia Last Admin: 05/14/20 23:44 Dose: 9 mg Documented by: Nystatin (Nystop) 1 gm TOP QID PRN PRN Reason: excoriation Last Admin: 05/12/20 20:28 Dose: 1 applic Documented by: Ondansetron HCl (Zofran Odt) 4 mg PO Q6H PRN PRN Reason: nausea, able to take PO Ondansetron HCl (Zofran) 4 mg IV Q6H PRN PRN Reason: Nausea/Vomiting Simvastatin (Zocor) 20 mg PO DAILY [facility] Last Admin: 05/15/20 08:28 Dose: 20 mg Documented by: Spironolactone (Aldactone) 25 mg PO DAILY [facility] Last Admin: 05/15/20 08:27 Dose: 25 mg Documented by: Trazodone HCl (Trazodone) 50 mg PO BEDTIME PRN PRN Reason: Insomnia Last Admin: 05/14/20 20:31 Dose: 50 mg Documented by: Discontinued Medications Acetaminophen (Tylenol) 975 mg PO ONETIME ONE Stop: 05/09/20 08:57 Last Admin: 05/09/20 09:34 Dose: 975 mg Documented by: Dexamethasone (Dexamethasone) 6 mg IVPUSH Q24H [facility] Last Admin: 05/10/20 11:31 Dose: 6 mg Documented by: Enoxaparin Sodium (Lovenox) 40 mg SUBCUT Q12H [facility] Last Admin: 05/10/20 22:50 Dose: Not Given Documented by: Furosemide (Lasix) 40 mg IVPUSH ONETIME ONE Stop: 05/10/20 21:16 Last Admin: 05/10/20 21:35 Dose: 40 mg Documented by: Furosemide (Lasix) 20 mg IVPUSH ONETIME ONE Stop: 05/11/20 16:01 Last Admin: 05/11/20 16:18 Dose: 20 mg Documented by: Furosemide (Lasix) 40 mg IVPUSH NOW ONE Stop: 05/12/20 09:01 Last Admin: 05/12/20 09:06 Dose: 40 mg Documented by: Sodium Chloride (Normal Saline) 1,000 mls @ 150 mls/hr IV ASDIRECTED [facility] Last Admin: 05/10/20 11:31 Dose: 150 mls/hr Documented by: Remdesivir 200 mg/ Sodium (Chloride) 250 mls @ 250 mls/hr IV ONETIME ONE Stop: 05/09/20 12:59 Last Admin: 05/09/20 11:47 Dose: 250 mls/hr Documented by: Remdesivir 100 mg/ Sodium (Chloride) 100 mls @ 100 mls/hr IV Q24H [facility] Stop: 05/13/20 12:59 Last Admin: 05/13/20 12:26 Dose: 100 mls/hr Documented by: Tocilizumab 800 mg/ Sodium (Chloride) 100 mls @ 100 mls/hr IV Q12H [facility] Stop: 05/10/20 01:59 Tocilizumab 800 mg/ Sodium (Chloride) 100 mls @ 100 mls/hr IV Q12H [facility] Stop: 05/10/20 01:59 Last Admin: 05/10/20 00:42 Dose: 100 mls/hr Documented by: Ceftriaxone Sodium 2 gm/ (Sodium Chloride) 100 mls @ 200 mls/hr IV Q24H [facility] Stop: 05/14/20 09:29 Last Admin: 05/14/20 09:31 Dose: 200 mls/hr Documented by: Azithromycin 500 mg/ Sodium (Chloride) 250 mls @ 250 mls/hr IV Q24H [facility] Stop: 05/12/20 10:29 Last Admin: 05/12/20 10:22 Dose: 250 mls/hr Documented by: Sodium Chloride (Normal Saline) 1,000 mls @ 50 mls/hr IV ASDIRECTED [facility] Sodium Chloride (Normal Saline) Confirm Administered Dose 250 mls @ as directed .ROUTE .STK-MED ONE Stop: 05/11/20 11:04 Last Admin: 05/11/20 11:35 Dose: 500 mls/hr Documented by: Magnesium Sulfate 2 gm/ Premix 50 mls @ 25 mls/hr IV ONETIME ONE Stop: 05/11/20 17:29 Last Admin: 05/11/20 16:17 Dose: 25 mls/hr Documented by: Insulin Glargine (Lantus) 5 unit SUBCUT BEDTIME [facility] Last Admin: 05/10/20 20:40 Dose: 5 units Documented by: Levothyroxine Sodium (Levothyroxine) 50 mcg PO MoWeFr [facility] Last Admin: 05/10/20 10:26 Dose: Not Given Documented by: Tocilizumab (Actemra) 800 mg IV Q12HR [facility] Stop: 05/10/20 09:01 - Exam Quality Assessment: Supplemental Oxygen (BiPAP), Urine Catheter General: Alert, Oriented HEENT: Pupils Equal, Mucous Membr. Moist/[place] Neck: Supple Lungs: Crackles (Right lower lobe). No: Normal Respiratory Effort (Increased respiratory rate with abdominal breathing) Cardiovascular: Regular Rate, Regular Rhythm GI/Abdominal Exam: Normal Bowel Sounds, Soft, Non-Tender, Distended (Morbidly obese) Extremities: Normal Inspection, No Pedal Edema, Normal Capillary Refill Peripheral Pulses: 1+: Posterior Tibial (L), Posterior Tibial (R), Dorsalis Pedis (L), Dorsalis Pedis (R) Skin: Warm, Dry, Intact Psy/Mental Status: Alert, Normal Affect, Normal Mood Sepsis Event Note - Evaluation Sepsis Screening Result: Sepsis Risk - Focused Exam Vital Signs: Vital Signs Temp Pulse Resp BP BP Pulse Ox Pulse Ox 05/15/20 13:36 85 L 05/15/20 12:30 82 L 05/15/20 12:20 86 L 05/15/20 12:10 88 L 05/15/20 12:00 91 L 05/15/20 11:53 84 L 05/15/20 11:40 84 L 09/19/20 11:30 76 L 05/15/20 11:20 89 L 05/15/20 11:10 88 L 05/15/20 11:00 93 L 05/15/20 10:50 87 L 05/15/20 10:40 87 L 05/15/20 10:30 82 L 05/15/20 10:20 86 L 05/15/20 10:11 81 L 05/15/20 10:06 05/15/20 10:00 84 L 05/15/20 09:50 84 L 05/15/20 09:40 85 L 05/15/20 09:30 77 L 05/15/20 09:20 84 L 05/15/20 09:10 86 L 05/15/20 09:05 05/15/20 09:00 85 L 05/15/20 08:52 83 L 05/15/20 08:50 05/15/20 08:45 05/15/20 08:44 75 L 05/15/20 08:39 05/15/20 08:35 82 L 05/15/20 08:31 83 L 05/15/20 08:30 102/53 L 80 L 05/15/20 08:29 84 L 05/15/20 08:28 102/53 L 05/15/20 08:22 05/15/20 08:20 82 L 05/15/20 08:10 84 L 05/15/20 08:00 96.0 F L 75 34 H 102/53 L 83 L 05/15/20 07:50 83 L 05/15/20 07:40 84 L 05/15/20 07:30 83 L 05/15/20 07:20 85 L 05/15/20 07:10 87 L 05/15/20 07:00 83 L 05/15/20 06:50 90 L 05/15/20 06:40 82 L 05/15/20 06:34 102/57 L 82 L 05/15/20 06:33 82 L 05/15/20 06:30 84 L 05/15/20 06:20 87 L 05/15/20 06:10 85 L 05/15/20 06:00 87 L 05/15/20 05:50 86 L 05/15/20 05:40 88 L 05/15/20 05:30 86 L 09/19/20 05:20 85 L 05/15/20 05:10 86 L 05/15/20 05:00 92 L 05/15/20 04:00 96.9 F 70 30 H 102/57 L 83 L Pulse Ox 05/15/20 13:36 05/15/20 12:30 05/15/20 12:20 05/15/20 12:10 05/15/20 12:00 05/15/20 11:53 05/15/20 11:40 05/15/20 11:30 05/15/20 11:20 05/15/20 11:10 05/15/20 11:00 05/15/20 10:50 05/15/20 10:40 05/15/20 10:30 05/15/20 10:20 05/15/20 10:11 05/15/20 10:06 83 L 05/15/20 10:00 05/15/20 09:50 05/15/20 09:40 05/15/20 09:30 05/15/20 09:20 05/15/20 09:10 05/15/20 09:05 93 L 05/15/20 09:00 05/15/20 08:52 05/15/20 08:50 84 L 05/15/20 08:45 73 L 05/15/20 08:44 05/15/20 08:39 83 L 05/15/20 08:35 05/15/20 08:31 05/15/20 08:30 05/15/20 08:29 05/15/20 08:28 05/15/20 08:22 82 L 05/15/20 08:20 05/15/20 08:10 05/15/20 08:00 05/15/20 07:50 05/15/20 07:40 05/15/20 07:30 05/15/20 07:20 05/15/20 07:10 05/15/20 07:00 05/15/20 06:50 05/15/20 06:40 05/15/20 06:34 05/15/20 06:33 05/15/20 06:30 05/15/20 06:20 05/15/20 06:10 05/15/20 06:00 05/15/20 05:50 05/15/20 05:40 05/15/20 05:30 05/15/20 05:20 05/15/20 05:10 05/15/20 05:00 05/15/20 04:00 - Problem List & Annotations (1) Acute hypoxemic respiratory failure due to COVID-19 SNOMED Code(s): 232941640 Code(s): U07.1 - COVID-19; J96.01 - ACUTE RESPIRATORY FAILURE WITH HYPOXIA Status: Acute Current Visit: Yes (2) Acute kidney injury due to COVID-19 SNOMED Code(s): 524048918 Code(s): U07.1 - COVID-19; N17.9 - ACUTE KIDNEY FAILURE, UNSPECIFIED Status: Acute Current Visit: Yes (3) COPD (chronic obstructive pulmonary disease) SNOMED Code(s): 76663854 Code(s): J44.9 - CHRONIC OBSTRUCTIVE PULMONARY DISEASE, UNSPECIFIED Status: Acute Current Visit: Yes (4) Diabetes mellitus SNOMED Code(s): 54677371 Code(s): E11.9 - TYPE 2 DIABETES MELLITUS WITHOUT COMPLICATIONS Status: Acute Current Visit: Yes (5) Morbid obesity with BMI of 50.0-59.9, adult SNOMED Code(s): 884421794, 59680516180609 Code(s): E66.01 - MORBID (SEVERE) OBESITY DUE TO EXCESS CALORIES; Z68.43 - BODY MASS INDEX (BMI) 50.0-59.9, ADULT Status: Acute Current Visit: Yes (6) Pneumonia due to COVID-19 virus SNOMED Code(s): 226251411 Code(s): U07.1 - COVID-19; J12.89 - OTHER VIRAL PNEUMONIA Status: Acute Current Visit: Yes - Problem List Review Problem List Initiated/Reviewed/Updated: Yes - My Orders Last 24 Hours: My Active Orders 05/15/20 14:28 Chest 1V Frontal [CR] Stat - Assessment Assessment:: 05/09/2020 Brought in via EMS from [place] for worsening shortness of breath, hypoxemia and 2 falls associated with [place] and chills last night Vital signs Prior to transfer: Rate 128, respiratory rate 38, blood pressure 134/50 temp 100.8, felt 70% on room air Upon arrival to ED: Heart rate 113, blood pressure 144/123 (130), temperature 101.5, pulse ox 82% on room air (went up to 92% on 3 L) Placed on nasal cannula once in the emergency department did stabilize pulse ox Lab results CBC: WBC 6.8, hemoglobin 13 (macrocytic hypochromic), platelets 212 Chemistry: Sodium 133, potassium 4, chloride 95, magnesium 1.9, CO2 27, GFR 55, glucose 126 LFTs: Total bilirubin 0.4, alkaline phosphatase 46, AST 43, ALT 52, total protein 7.1, albumin 3.2 D-dimer 0.85 Lactate 0.9 Ferritin 243 proBNP 226 CRP 14 ABGs: 7.38/40 5.1/80 05/16 6.1/95.1 on 3 L nasal cannula Hemoglobin A1c 6.7 COVID 19 + Other results: Chest x-ray: Bilateral patchy infiltrates throughout lung [place], diminished lung size, no pleural effusions EKG: Left axis deviation, Q waves in inferior and anterior leads (III, aVF, V4 through V6) 05/10/2020 * Continued worsening oxygenation secondary to COVID-19. * Patient is at very high risk for worsening and severe symptoms secondary to his underlying medical conditions including: Diabetes, hypertension, and morbid obesity. * His creatinine kinase is significantly elevated (over 9000) for unknown re ason. * Vital signs stable, T-max 101.5 yesterday morning, * White blood cell count decreased to 1.7. * CRP slightly increased at 16.4. * Troponin 0.039. * D-dimer is 0.87. * Blood sugars ranging from 218 down to 137 * Anticipate increasing blood sugars secondary to dexamethasone * started on remdesivir, dexamethasone, Actemra yesterday 05/11/2020 * Continuing worsening oxygenation requiring high flow nasal cannula. * Patient continues to have minimal shortness of breath at rest. * WBC increased to 2.96. * CRP significantly decreased to 6.6 from 16.4. * D-dimer slightly higher at 1.05. * Mag is slightly low at 1.7. * AST increased to 273, but ALT is 92. ALT is still less than 5 times the upper limit of normal, therefore not a contraindication to remdesivir. * Patient continues on remdesivir, dexamethasone, and 1 unit of convalescent plasma. He only received 1 unit last night secondary to concerns of fluid overload. * Patient received 40 mg of Lasix IV after his first unit of convalescent plasma. * Finished Actemra * Renal function is still good at GFR greater than 60, creatinine 1.2, but BUN slightly elevated at 28 * Blood sugars ranging from mid 100s up to 302. * Patient currently on Lantus 5 units at bedtime and sliding scale Humalog 05/12/2020 * Mild worsening of oxygenation requiring a increase in high flow nasal cannula. 30 L/min at 80% FiO2. * Vital signs: Afebrile, blood pressure stable, respiratory rate 20-30, heart rate 80s * WBC 3.06increased * CRP 3.8decreased * D-dimer 0.80decreased * Renal function: GFR greater than 60, creatinine 1.0 * Remdesivir 4 of 5 days, dexamethasone day 4 of 10 days, completed Actemra, completed 2 units of convalescent plasma * Azithromycin third day of 3, ceftriaxone day 3 of 5 * Blood sugars improved, ranging from 142 to 252 * Currently on Lantus 10 units at bedtime, increased from yesterday * Liver enzymes improved, AST 189, ALT 84. 05/13/2020 * Patient relatively stable today with continued 30 L/min at 80% FiO2 on high flow nasal cannula. * Vital signs stable. Blood pressure well controlled. Afebrile. Weight is down 3-1/2 kg from yesterday. * No labs today since yesterday's were stable and improved. * Fingerstick blood sugar still as high as 307. * Day 4 of ceftriaxone, day 5 of 10 of dexamethasone. * Completed remdesivir, Actemra, and 2 units of convalescent plasma * Increase Lantus tomorrow * Patient had no significant improvement or worsening today. Anticipate that he will slowly begin to improve over the next several days. We will likely have to accept oxygenation in the upper 80s to low 90s with O2 at time of discharge. 05/14/2020 * No significant change in respiratory status. Slightly improved but not significantly. * Labs continue to improve. D-dimer 1.07, C-reactive protein 1.2, AST 106, ALT 77, white count 3.76 * Estimated GFR greater than 60 * Day 5 of ceftriaxone * Day 6 of dexamethasone * Slightly increased Lantus by 3 units this morning and 10 units at night 05/15/2020 * Significant worsening of his hypoxemia and respiratory status. Patient has required increasing amounts of expiratory support and is currently on BiPAP 16/8 with approximately 20 L O2 bled in. Respiratory rate is elevated and he has increased work of breathing. * Patient understands that if he worsens anymore and he is not intubated we may not save his life. Patient's was also notified and also understands the gravity of the situation. Even if we were able to intubate Brett because of his severe underlying COPD, diabetes, hypertension and morbid obesity on top of having COVID pneumonia that appears to be worsening. We have tried pronating him, but he cannot tolerate being on his abdomen nor can he tolerate laying on his hip for any given period time because of pain. Patient does not want to lay on his left side because he hurts and has difficulty breathing. He was in the chair for a few hours today, but he is uncomfortable and requests to lay back in bed frequently. He leaves us with only supination, slight right side, and head up to 45 to 70 degrees in bed. * He has finished remdesivir, ceftriaxone, azithromycin, and Actemra. * He has received 2 units of convalescent plasma. * He is on day 7 of dexamethasone * Blood pressures stable, afebrile * Approximate 20 pound weight loss with significant negative fluid balance * Acute renal injury * Pertinent labs: WBC increased to 10, sodium decreased to 132, worsening renal function BUN 46, creatinine 1.6, estimated GFR 43, d-dimer increased to 2.37, CRP decreased to 0.5 * Increase in WBC is likely secondary to stress considering CRP is decreased. * AST 83, ALT 89 - Plan Plan:: Pneumonia due to COVID-19 virus Acute hypoxemic respiratory failure due to COVID-19 Leukopenia Pneumonia PLAN * Continue to change positions, adjust BiPAP for best oxygenation settings, encourage deep breathing, and respiratory therapy. * Albuterol inhaler 2 puffs every 2 hours PRN shortness of breath. * Continue updating his on his condition. * Patient continues to not want to be intubated. * Remdesivir completed * dexamethasone 6 mg orally day 7 of 10 days * Actemra x2 doses completed * 2 units of convalescent plasma completed * Azithromycin completed * Ceftriaxone completed COPD (chronic obstructive pulmonary disease) COPD, not oxygen dependent at home, but oxygen saturations apparently ranged between 85 and 90% Only home treatment is albuterol HFA twice daily Patient states home oxygen saturations are generally between 85 and 90% PLAN Monitor oxygenation Goal pulse ox above 84 albuterol prn Obstructive sleep apnea Endorses full compliance with nightly CPAP for [place] Pressure is 8, last adjustment about a year ago PLAN Use BiPAP as above Hypertension Blood pressure control is unable to be determined as patient was short of breath and in distress with initial vital signs Home management with amlodipine 10 and losartan 100 PLAN Continue home amlodipine -Hold losartan in the morning if kidney function continues to deteriorate PRN hydralazine for SBP above 200 and DBP above 100 Diabetes mellitus, HbA1c6.7% Diabetes appears to be controlled A1c of 6.7, might be a little bit different due to patient being anemic Glucose at home ranges between 125 and 145 as per patient Home management with metformin and glipizide Has never been on insulin Patient will be started on dexamethasone as per COVID management for which low dose long-acting insulin will be started and adjusted as necessary PLAN Scheduled Accu-Cheks before meals and at bedtime Hypoglycemia protocol Continue glargine 3 units in the morning and 10 units at bedtime -Sliding scale insulin Hold home metformin and glipizide during admission Microcytic hypochromic anemia Chronicity unknown Alters hemoglobin A1c measurement marginally Acute kidney injury due to [id number] Baseline GFR is unknown GFR on admission is 55 PLAN Continue to monitor with labs in the morning Monitor urine output. Strict I's and O's Elevated LFTs -Continue monitoring but no indication to stop remdesivir Hypoalbuminemia Morbid obesity with BMI of 50.0-59.9, adult Patient endorses very poor eating habits Has minimal daily activity pivoting to and from his scooter PLAN * Encourage adequate diet and supplements Hypothyroidism No acute issues identified On home levothyroxine 75 mcg PLAN * Continue home levothyroxine Dyslipidemia Patient likely has undiagnosed coronary artery disease * Identified Q waves on EKG in anterolateral leads and inferior leads Home management with atorvastatin 10, unsure if this covers his ASCVD risk PLAN * Continue atorvastatin and aspirin for now Gout Denies any previous exacerbations On home allopurinol 400 daily PLAN Continue home allopurinol at 400 daily for now PROPHYLAXIS DVTLovenox twice daily GInot indicated CODE STATUS: DO NOT INTUBATE, confirmed with patient that he changed his mind from previous advanced directives. I reaffirmed that today. PROGNOSIS: Patient has a very poor prognosis. He has multiple medical problems and is morbidly obese. This places him at a very high risk for complications and mortality. I discussed this with the patient. He stated he did not want to be intubated, but he would want CPR. DISPOSITION: Patient will be fully admitted to medical treatment with Remdesivir, dexamethasone and Actemra for now, depending on progress will start plasma and oxygen supplementation. Length of stay greater than 96 hours due to poor improvement and per Remdesivir treatment regimen requirements. SOCIAL: Patient is a resident of [place], lives with his there who is medical power of employment law attorney. Normally does pivot to his scooter but has not been able to do so in the past couple of days Not oxygen dependent at home PCP is Dr. Robert Total time spent in critical care at bedside was 90 minutes. Time spent adjusting and monitoring oxygenation, high flow nasal cannula, and BiPAP.
[2020-05-15] MEDS: Melatonin 3 MG Tab PO PRN (20:46)
[2020-05-15] MEDS: traZODone 50 MG Tab PO PRN (20:46)
[2020-05-16] MEDS: LORazepam 2 MG/ML SDV IVPUSH PRN ×3 (01:06→23:39)
[2020-05-16] MEDS: Insulin Lispro 100 Units/ML 3 ML Vial SUBCUT SCH ×5 (06:41→22:26)
[2020-05-16] MEDS: Enoxaparin 40 MG/0.4 ML Syringe SUBCUT SCH ×2 (08:45→20:33)
[2020-05-16] MEDS: Dexamethasone 4 MG Tab PO SCH (08:45)
[2020-05-16] MEDS: Calcium Carbonate/Vitamin D3 600 MG-200 Units Tab PO SCH (08:45)
[2020-05-16] MEDS: Losartan 100 MG Tab PO SCH (08:46)
[2020-05-16] MEDS: Furosemide 40 MG Tab PO SCH (08:46)
[2020-05-16] MEDS: Allopurinol 100 MG Tab PO SCH (08:46)
[2020-05-16] MEDS: Aspirin 81 MG Tab.Chew PO SCH (08:47)
[2020-05-16] MEDS: Simvastatin 20 MG Tab PO SCH (08:47)
[2020-05-16] MEDS: Insulin Glarg,Human.Rec.Analog 100 Unit/ML SUBCUT SCH ×2 (08:47→20:52)
[2020-05-16] MEDS: Spironolactone 25 MG Tab PO SCH (08:47)
[2020-05-16] MEDS: Nystatin Topical Powder 15 GM Bottle TOP PRN (09:13)
--- NOTE | 2020-05-16 11:26 | CR ---
Chest: Portable view of the chest was obtained. Comparison: Prior chest x-ray of 05/11/20. Diffuse parenchymal densities are seen on both sides of the chest. Findings are minimally increased in severity from prior exam. Heart is enlarged. Upper mediastinum is normal. Bony structures are grossly intact. Impression: 1. Diffuse parenchymal densities on both sides of the chest minimally increased in severity from prior exam. 2. Cardiomegaly. Diagnostic code #5 Study was dictated in MDT Agree with preliminary report issued by [facility] ([facility] preliminary report dictated on 05/15/20, 4:18 PM Central Daylight Time) Study was dictated in [facility] Time
[2020-05-16] MEDS: Levothyroxine 25 MCG Tab PO SCH (12:30)
--- NOTE | 2020-05-16 14:26 | PCM.PN ---
- General Info Date of Service: 05/16/20 Admission Dx/Problem (Free Text): Admission Diagnosis/Problem Admission Diagnosis/Problem Viral pneumonia Subjective Update: Brett continues to state that he is feeling better. He is having some improvement in his oxygenation, but still requiring high FiO2 concentrations and high pressures. He has switched from BiPAP to high flow nasal cannula and back as necessary for sleep, eating, and other daily activities. - Review of Systems General: Reports: Fatigue HEENT: Reports: No Symptoms Pulmonary: Reports: Shortness of Breath, Cough Cardiovascular: Reports: No Symptoms Gastrointestinal: Reports: No Symptoms Musculoskeletal: Reports: No Symptoms Skin: Reports: No Symptoms Neurological: Reports: No Symptoms - Patient Data Vitals - Most Recent: Last Vital Signs Temp 97 F 05/16/20 12:00 Pulse 75 05/15/20 08:00 Resp 25 H 05/16/20 12:00 BP 113/58 L 05/16/20 12:00 Pulse Ox 83 L 05/16/20 14:24 Weight - Most Recent: 162.386 kg I&O - Last 24 Hours: Intake & Output 05/15/20 05/16/20 05/16/20 22:59 06:59 14:59 Intake Total 60 400 300 Output Total 500 650 850 Balance -440 -250 -550 Lab Results Last 24 Hours: Laboratory Results - last 24 hr 05/15/20 05/15/20 05/15/20 Range/Units 16:24 16:24 16:24 WBC 10.06 H (4.23-9.07) K/mm3 RBC 5.58 (4.63-6.08) M/mm3 Hgb 16.4 (13.7-17.5) gm/dl Hct 50.9 (40.1-51.0) % MCV 91.2 (79.0-92.2) fl MCH 29.4 (25.7-32.2) pg MCHC 32.2 (32.2-35.5) g/dl RDW Std Deviation 44.8 H (35.1-43.9) fL Plt Count 281 (163-337) K/mm3 MPV 9.4 (9.4-12.3) fl Neut % (Auto) 90.1 H (34.0-67.9) % Lymph % (Auto) 5.2 L (21.8-53.1) % [place] % (Auto) 3.9 L (5.3-12.2) % Eos % (Auto) 0 L (0.8-7.0) Baso % (Auto) 0.2 (0.1-1.2) % Neut # (Auto) 9.07 H (1.78-5.38) K/mm3 Lymph # (Auto) 0.52 L (1.32-3.57) K/mm3 [place] # (Auto) 0.39 (0.30-0.82) K/mm3 Eos # (Auto) 0.00 L (0.04-0.54) K/mm3 Baso # (Auto) 0.02 (0.01-0.08) K/mm3 Manual Slide Review Abnormal smear D-Dimer, Quantitative 2.37 H (0.19-0.50) mg/L Puncture Site ABG pH (7.35-7.45) ABG pCO2 (35.0-45.0) mmHg ABG pO2 (80.0-100.0) mmHg ABG HCO3 (22.0-26.0) meq/L ABG O2 Saturation (96.0-97.0) % ABG Base Excess (-2-2.0) A-a Gradient mmHg O2 Delivery Device Oxygen Flow Rate FiO2 (21.00-100.00) % Sodium 132 L (136-145) mEq/L Potassium 4.5 (3.5-5.1) mEq/L Chloride 94 L (98-107) mEq/L Carbon Dioxide 30 (21-32) mEq/L Anion Gap 12.5 (5-15) BUN 46 H (7-18) mg/dL Creatinine 1.6 H (0.7-1.3) mg/dL Est Cr Clr Drug Dosing 40.74 mL/min Estimated GFR (MDRD) 43 (>60) mL/min BUN/Creatinine Ratio 28.8 H (14-18) Glucose 263 H (80-115) mg/dL POC Glucose (80-115) mg/dL Calcium 8.9 (8.5-10.1) mg/dL Phosphorus (2.6-4.7) mg/dL Magnesium (1.8-2.4) mg/dl Total Bilirubin 0.5 (0.2-1.0) mg/dL AST 83 H (15-37) U/L ALT 89 H (16-63) U/L Alkaline Phosphatase 56 (46-116) U/L C-Reactive Protein 0.5 (<1.0) mg/dL Total Protein 7.7 (6.4-8.2) g/dl Albumin 3.5 (3.4-5.0) g/dl Globulin 4.2 gm/dL Albumin/Globulin Ratio 0.8 L (1-2) 05/15/20 05/15/20 05/16/20 Range/Units 16:34 20:53 06:30 WBC 5.65 (4.23-9.07) K/mm3 RBC 5.08 (4.63-6.08) M/mm3 Hgb 15.1 (13.7-17.5) gm/dl Hct 46.0 (40.1-51.0) % MCV 90.6 (79.0-92.2) fl MCH 29.7 (25.7-32.2) pg MCHC 32.8 (32.2-35.5) g/dl RDW Std Deviation 43.5 (35.1-43.9) fL Plt Count 226 (163-337) K/mm3 MPV 9.2 L (9.4-12.3) fl Neut % (Auto) 73.5 H (34.0-67.9) % Lymph % (Auto) 16.6 L (21.8-53.1) % [place] % (Auto) 8.0 (5.3-12.2) % Eos % (Auto) 0.7 L (0.8-7.0) Baso % (Auto) 0.5 (0.1-1.2) % Neut # (Auto) 4.15 (1.78-5.38) K/mm3 Lymph # (Auto) 0.94 L (1.32-3.57) K/mm3 [place] # (Auto) 0.45 (0.30-0.82) K/mm3 Eos # (Auto) 0.04 (0.04-0.54) K/mm3 Baso # (Auto) 0.03 (0.01-0.08) K/mm3 Manual Slide Review Normal smear D-Dimer, Quantitative (0.19-0.50) mg/L Puncture Site ABG pH (7.35-7.45) ABG pCO2 (35.0-45.0) mmHg ABG pO2 (80.0-100.0) mmHg ABG HCO3 (22.0-26.0) meq/L ABG O2 Saturation (96.0-97.0) % ABG Base Excess (-2-2.0) A-a Gradient mmHg O2 Delivery Device Oxygen Flow Rate FiO2 (21.00-100.00) % Sodium (136-145) mEq/L Potassium (3.5-5.1) mEq/L Chloride (98-107) mEq/L Carbon Dioxide (21-32) mEq/L Anion Gap (5-15) BUN (7-18) mg/dL Creatinine (0.7-1.3) mg/dL Est Cr Clr Drug Dosing mL/min Estimated GFR (MDRD) (>60) mL/min BUN/Creatinine Ratio (14-18) Glucose (80-115) mg/dL POC Glucose 240 H 172 H (80-115) mg/dL Calcium (8.5-10.1) mg/dL Phosphorus (2.6-4.7) mg/dL Magnesium (1.8-2.4) mg/dl Total Bilirubin (0.2-1.0) mg/dL AST (15-37) U/L ALT (16-63) U/L Alkaline Phosphatase (46-116) U/L C-Reactive Protein (<1.0) mg/dL Total Protein (6.4-8.2) g/dl Albumin (3.4-5.0) g/dl Globulin gm/dL Albumin/Globulin Ratio (1-2) 05/16/20 05/16/20 05/16/20 Range/Units 06:30 06:30 06:30 WBC (4.23-9.07) K/mm3 RBC (4.63-6.08) M/mm3 Hgb (13.7-17.5) gm/dl Hct (40.1-51.0) % MCV (79.0-92.2) fl MCH (25.7-32.2) pg MCHC (32.2-35.5) g/dl RDW Std Deviation (35.1-43.9) fL Plt Count (163-337) K/mm3 MPV (9.4-12.3) fl Neut % (Auto) (34.0-67.9) % Lymph % (Auto) (21.8-53.1) % [place] % (Auto) (5.3-12.2) % Eos % (Auto) (0.8-7.0) Baso % (Auto) (0.1-1.2) % Neut # (Auto) (1.78-5.38) K/mm3 Lymph # (Auto) (1.32-3.57) K/mm3 [place] # (Auto) (0.30-0.82) K/mm3 Eos # (Auto) (0.04-0.54) K/mm3 Baso # (Auto) (0.01-0.08) K/mm3 Manual Slide Review D-Dimer, Quantitative 1.59 H (0.19-0.50) mg/L Puncture Site ABG pH (7.35-7.45) ABG pCO2 (35.0-45.0) mmHg ABG pO2 (80.0-100.0) mmHg ABG HCO3 (22.0-26.0) meq/L ABG O2 Saturation (96.0-97.0) % ABG Base Excess (-2-2.0) A-a Gradient mmHg O2 Delivery Device Oxygen Flow Rate FiO2 (21.00-100.00) % Sodium 136 (136-145) mEq/L Potassium 4.1 (3.5-5.1) mEq/L Chloride 100 (98-107) mEq/L Carbon Dioxide 27 (21-32) mEq/L Anion Gap 13.1 (5-15) BUN 41 H (7-18) mg/dL Creatinine 0.9 (0.7-1.3) mg/dL Est Cr Clr Drug Dosing 72.42 mL/min Estimated GFR (MDRD) > 60 (>60) mL/min BUN/Creatinine Ratio 45.6 H (14-18) Glucose 123 H (80-115) mg/dL POC Glucose 115 (80-115) mg/dL Calcium 8.8 (8.5-10.1) mg/dL Phosphorus 4.0 (2.6-4.7) mg/dL Magnesium 1.9 (1.8-2.4) mg/dl Total Bilirubin 0.5 (0.2-1.0) mg/dL AST 59 H (15-37) U/L ALT 67 H (16-63) U/L Alkaline Phosphatase 46 (46-116) U/L C-Reactive Protein 0.4 (<1.0) mg/dL Total Protein 6.6 (6.4-8.2) g/dl Albumin 2.9 L (3.4-5.0) g/dl Globulin 3.7 gm/dL Albumin/Globulin Ratio 0.8 L (1-2) 05/16/20 Range/Units 11:16 WBC (4.23-9.07) K/mm3 RBC (4.63-6.08) M/mm3 Hgb (13.7-17.5) gm/dl Hct (40.1-51.0) % MCV (79.0-92.2) fl MCH (25.7-32.2) pg MCHC (32.2-35.5) g/dl RDW Std Deviation (35.1-43.9) fL Plt Count (163-337) K/mm3 MPV (9.4-12.3) fl Neut % (Auto) (34.0-67.9) % Lymph % (Auto) (21.8-53.1) % [place] % (Auto) (5.3-12.2) % Eos % (Auto) (0.8-7.0) Baso % (Auto) (0.1-1.2) % Neut # (Auto) (1.78-5.38) K/mm3 Lymph # (Auto) (1.32-3.57) K/mm3 [place] # (Auto) (0.30-0.82) K/mm3 Eos # (Auto) (0.04-0.54) K/mm3 Baso # (Auto) (0.01-0.08) K/mm3 Manual Slide Review D-Dimer, Quantitative (0.19-0.50) mg/L Puncture Site Lt radial ABG pH 7.39 (7.35-7.45) ABG pCO2 48.4 H (35.0-45.0) mmHg ABG pO2 53.0 L (80.0-100.0) mmHg ABG HCO3 28.5 H (22.0-26.0) meq/L ABG O2 Saturation 81.1 L (96.0-97.0) % ABG Base Excess 3.0 H (-2-2.0) A-a Gradient 599 mmHg O2 Delivery Device [place] nasal cannula Oxygen Flow Rate 60.0 FiO2 100.00 (21.00-100.00) % Sodium (136-145) mEq/L Potassium (3.5-5.1) mEq/L Chloride (98-107) mEq/L Carbon Dioxide (21-32) mEq/L Anion Gap (5-15) BUN (7-18) mg/dL Creatinine (0.7-1.3) mg/dL Est Cr Clr Drug Dosing mL/min Estimated GFR (MDRD) (>60) mL/min BUN/Creatinine Ratio (14-18) Glucose (80-115) mg/dL POC Glucose (80-115) mg/dL Calcium (8.5-10.1) mg/dL Phosphorus (2.6-4.7) mg/dL Magnesium (1.8-2.4) mg/dl Total Bilirubin (0.2-1.0) mg/dL AST (15-37) U/L ALT (16-63) U/L Alkaline Phosphatase (46-116) U/L C-Reactive Protein (<1.0) mg/dL Total Protein (6.4-8.2) g/dl Albumin (3.4-5.0) g/dl Globulin gm/dL Albumin/Globulin Ratio (1-2) Alberto Results Last 24 Hours: Microbiology 05/09/20 09:35 Aerobic Blood Culture - Final Blood - Venous NO GROWTH AFTER 7 DAYS Anaerobic Blood Culture - Final NO GROWTH AFTER 7 DAYS 05/09/20 09:23 Aerobic Blood Culture - Final Blood - Venous - Lab Draw NO GROWTH AFTER 7 DAYS Anaerobic Blood Culture - Final NO GROWTH AFTER 7 DAYS Med Orders - Current: Current Medications Acetaminophen (Tylenol) 650 mg PO Q4H PRN PRN Reason: Pain (Mild 1-3)/fever Albuterol (Proventil Hfa) 0 gm INH Q2H PRN PRN Reason: Dyspnea Allopurinol (Zyloprim) 400 mg PO DAILY [facility] Last Admin: 05/16/20 08:46 Dose: 400 mg Documented by: Aspirin (Aspirin) 81 mg PO DAILY [facility] Last Admin: 05/16/20 08:47 Dose: 81 mg Documented by: Calcium Carbonate (Calcium Carbonate/Vitamin D 600 Mg-200 Unit) 1 tab PO DAILY [facility] Last Admin: 05/16/20 08:45 Dose: 1 tab Documented by: Dexamethasone (Dexamethasone) 6 mg PO DAILY [facility] Stop: 05/18/20 09:01 Last Admin: 05/16/20 08:45 Dose: 6 mg Documented by: Dextrose/Water (Dextrose 50% In Water) 50 ml IVPUSH ASDIRECTED PRN PRN Reason: Hypoglycemia Enoxaparin Sodium (Lovenox) 40 mg SUBCUT BID [facility] Last Admin: 05/16/20 08:45 Dose: 40 mg Documented by: Furosemide (Lasix) 40 mg PO DAILY [facility] Last Admin: 05/16/20 08:46 Dose: 40 mg Documented by: Hydralazine HCl (Apresoline) 10 mg IVPUSH Q2H PRN PRN Reason: Hypertension Insulin Glargine (Lantus) 10 unit SUBCUT BEDTIME [facility] Last Admin: 05/15/20 20:54 Dose: 10 units Documented by: Insulin Glargine (Lantus) 3 unit SUBCUT DAILY [facility] Last Admin: 05/16/20 08:47 Dose: 3 unit Documented by: Insulin Human Lispro (Humalog) 0 unit SUBCUT QIDACANDBED [facility]; Protocol Last Admin: 05/16/20 12:40 Dose: 2 units Documented by: Levothyroxine Sodium (Levothyroxine) 25 mcg PO SuTuThSa [facility] Last Admin: 05/16/20 12:30 Dose: 25 mcg Documented by: Levothyroxine Sodium (Synthroid) 50 mcg PO MoWeFr [facility] Last Admin: 05/14/20 09:47 Dose: 50 mcg Documented by: Lorazepam (Ativan) 1 mg IVPUSH Q2HR PRN PRN Reason: Anxiety Last Admin: 05/16/20 01:06 Dose: 1 mg Documented by: Losartan Potassium (Cozaar) 100 mg PO DAILY [facility] Last Admin: 05/16/20 08:46 Dose: 100 mg Documented by: Melatonin (Melatonin) 9 mg PO BEDTIME PRN PRN Reason: Insomnia Last Admin: 05/15/20 20:46 Dose: 9 mg Documented by: Nystatin (Nystop) 1 gm TOP QID PRN PRN Reason: excoriation Last Admin: 05/16/20 09:13 Dose: 1 applic Documented by: Ondansetron HCl (Zofran Odt) 4 mg PO Q6H PRN PRN Reason: nausea, able to take PO Ondansetron HCl (Zofran) 4 mg IV Q6H PRN PRN Reason: Nausea/Vomiting Simvastatin (Zocor) 20 mg PO DAILY [facility] Last Admin: 05/16/20 08:47 Dose: 20 mg Documented by: Spironolactone (Aldactone) 25 mg PO DAILY [facility] Last Admin: 05/16/20 08:47 Dose: 25 mg Documented by: Trazodone HCl (Trazodone) 50 mg PO BEDTIME PRN PRN Reason: Insomnia Last Admin: 05/15/20 20:46 Dose: 50 mg Documented by: Discontinued Medications Acetaminophen (Tylenol) 975 mg PO ONETIME ONE Stop: 05/09/20 08:57 Last Admin: 05/09/20 09:34 Dose: 975 mg Documented by: Albuterol (Proventil Hfa) 0 gm INH Q2H PRN PRN Reason: Wheezing Last Admin: 05/15/20 16:26 Dose: 1 puff Documented by: Dexamethasone (Dexamethasone) 6 mg IVPUSH Q24H [facility] Last Admin: 05/10/20 11:31 Dose: 6 mg Documented by: Enoxaparin Sodium (Lovenox) 40 mg SUBCUT Q12H [facility] Last Admin: 05/10/20 22:50 Dose: Not Given Documented by: Furosemide (Lasix) 40 mg IVPUSH ONETIME ONE Stop: 05/10/20 21:16 Last Admin: 05/10/20 21:35 Dose: 40 mg Documented by: Furosemide (Lasix) 20 mg IVPUSH ONETIME ONE Stop: 05/11/20 16:01 Last Admin: 05/11/20 16:18 Dose: 20 mg Documented by: Furosemide (Lasix) 40 mg IVPUSH NOW ONE Stop: 05/12/20 09:01 Last Admin: 05/12/20 09:06 Dose: 40 mg Documented by: Sodium Chloride (Normal Saline) 1,000 mls @ 150 mls/hr IV ASDIRECTED [facility] Last Admin: 05/10/20 11:31 Dose: 150 mls/hr Documented by: Remdesivir 200 mg/ Sodium (Chloride) 250 mls @ 250 mls/hr IV ONETIME ONE Stop: 05/09/20 12:59 Last Admin: 05/09/20 11:47 Dose: 250 mls/hr Documented by: Remdesivir 100 mg/ Sodium (Chloride) 100 mls @ 100 mls/hr IV Q24H [facility] Stop: 05/13/20 12:59 Last Admin: 05/13/20 12:26 Dose: 100 mls/hr Documented by: Tocilizumab 800 mg/ Sodium (Chloride) 100 mls @ 100 mls/hr IV Q12H [facility] Stop: 05/10/20 01:59 Tocilizumab 800 mg/ Sodium (Chloride) 100 mls @ 100 mls/hr IV Q12H [facility] Stop: 05/10/20 01:59 Last Admin: 05/10/20 00:42 Dose: 100 mls/hr Documented by: Ceftriaxone Sodium 2 gm/ (Sodium Chloride) 100 mls @ 200 mls/hr IV Q24H [facility] Stop: 05/14/20 09:29 Last Admin: 05/14/20 09:31 Dose: 200 mls/hr Documented by: Azithromycin 500 mg/ Sodium (Chloride) 250 mls @ 250 mls/hr IV Q24H [facility] Stop: 05/12/20 10:29 Last Admin: 05/12/20 10:22 Dose: 250 mls/hr Documented by: Sodium Chloride (Normal Saline) 1,000 mls @ 50 mls/hr IV ASDIRECTED [facility] Sodium Chloride (Normal Saline) Confirm Administered Dose 250 mls @ as directed .ROUTE .STK-MED ONE Stop: 05/11/20 11:04 Last Admin: 05/11/20 11:35 Dose: 500 mls/hr Documented by: Magnesium Sulfate 2 gm/ Premix 50 mls @ 25 mls/hr IV ONETIME ONE Stop: 05/11/20 17:29 Last Admin: 05/11/20 16:17 Dose: 25 mls/hr Documented by: Insulin Glargine (Lantus) 5 unit SUBCUT BEDTIME [facility] Last Admin: 05/10/20 20:40 Dose: 5 units Documented by: Levothyroxine Sodium (Levothyroxine) 50 mcg PO MoWeFr [facility] Last Admin: 05/10/20 10:26 Dose: Not Given Documented by: Tocilizumab (Actemra) 800 mg IV Q12HR [facility] Stop: 05/10/20 09:01 - Exam Quality Assessment: Supplemental Oxygen (BiPAP) General: Alert, Oriented HEENT: Pupils Equal, Mucous Membr. Moist/[place] Neck: Supple Lungs: Decreased Breath Sounds. No: Normal Respiratory Effort (Increased) Cardiovascular: Regular Rate, Regular Rhythm GI/Abdominal Exam: Normal Bowel Sounds, Soft, Non-Tender, No Distention Extremities: Normal Inspection, Normal Capillary Refill Skin: Warm, Dry, Intact Psy/Mental Status: Alert, Normal Affect, Normal Mood Sepsis Event Note - Evaluation Sepsis Screening Result: No Definite Risk - Focused Exam Vital Signs: Vital Signs Temp Resp BP BP Pulse Ox Pulse Ox Pulse Ox 05/16/20 14:24 83 L 05/16/20 12:12 85 L 05/16/20 12:00 97 F 25 H 113/58 L 82 L 05/16/20 11:07 84 L 05/16/20 11:00 88 L 05/16/20 10:58 89 L 05/16/20 10:17 83 L 05/16/20 09:47 81 L 05/16/20 09:15 88 L 05/16/20 09:00 78 L 05/16/20 08:49 97.5 F 28 H 101/51 L 76 L 05/16/20 08:46 97/46 L 05/16/20 08:40 79 L 05/16/20 06:30 23 H 86 L 05/16/20 06:00 19 86 L 05/16/20 05:00 26 H 94 L 05/16/20 04:05 21 H 90 L 05/16/20 04:00 97.2 F 22 H 109/48 L 89 L 05/16/20 03:05 25 H 85 L - Problem List & Annotations (1) Acute hypoxemic respiratory failure due to COVID-19 SNOMED Code(s): 213885651 Code(s): U07.1 - COVID-19; J96.01 - ACUTE RESPIRATORY FAILURE WITH HYPOXIA Status: Acute Current Visit: Yes (2) Acute kidney injury due to COVID-19 SNOMED Code(s): 055153001 Code(s): U07.1 - COVID-19; N17.9 - ACUTE KIDNEY FAILURE, UNSPECIFIED Status: Acute Current Visit: Yes (3) COPD (chronic obstructive pulmonary disease) SNOMED Code(s): 28359297 Code(s): J44.9 - CHRONIC OBSTRUCTIVE PULMONARY DISEASE, UNSPECIFIED Status: Acute Current Visit: Yes (4) Diabetes mellitus SNOMED Code(s): 64636273 Code(s): E11.9 - TYPE 2 DIABETES MELLITUS WITHOUT COMPLICATIONS Status: Acute Current Visit: Yes (5) Morbid obesity with BMI of 50.0-59.9, adult SNOMED Code(s): 143422484, 92930618011232 Code(s): E66.01 - MORBID (SEVERE) OBESITY DUE TO EXCESS CALORIES; Z68.43 - BODY MASS INDEX (BMI) 50.0-59.9, ADULT Status: Acute Current Visit: Yes (6) Pneumonia due to COVID-19 virus SNOMED Code(s): 461833377 Code(s): U07.1 - COVID-19; J12.89 - OTHER VIRAL PNEUMONIA Status: Acute Current Visit: Yes - Problem List Review Problem List Initiated/Reviewed/Updated: Yes - My Orders Last 24 Hours: My Active Orders 05/15/20 14:47 EKG 12 Lead [EK] Stat 05/15/20 19:42 Albuterol [Proventil HFA] See Dose Instructions INH Q2H PRN 05/15/20 19:56 LORazepam [Ativan] 1 mg IVPUSH Q2HR PRN - Assessment Assessment:: 05/09/2020 Brought in via EMS from [place] for worsening shortness of breath, hypoxemia and 2 falls associated with [place] and chills last night Vital signs Prior to transfer: Rate 128, respiratory rate 38, blood pressure 134/50 temp 100.8, felt 70% on room air Upon arrival to ED: Heart rate 113, blood pressure 144/123 (130), temperature 101.5, pulse ox 82% on room air (went up to 92% on 3 L) Placed on nasal cannula once in the emergency department did stabilize pulse ox Lab results CBC: WBC 6.8, hemoglobin 13 (macrocytic hypochromic), platelets 212 Chemistry: Sodium 133, potassium 4, chloride 95, magnesium 1.9, CO2 27, GFR 55, glucose 126 LFTs: Total bilirubin 0.4, alkaline phosphatase 46, AST 43, ALT 52, total protein 7.1, albumin 3.2 D-dimer 0.85 Lactate 0.9 Ferritin 243 proBNP 226 CRP 14 ABGs: 7.38/40 5.1/80 05/16 6.1/95.1 on 3 L nasal cannula Hemoglobin A1c 6.7 COVID 19 + Other results: Chest x-ray: Bilateral patchy infiltrates throughout lung [place], diminished lung size, no pleural effusions EKG: Left axis deviation, Q waves in inferior and anterior leads (III, aVF, V4 through V6) 05/10/2020 * Continued worsening oxygenation secondary to COVID-19. * Patient is at very high risk for worsening and severe symptoms secondary to his underlying medical conditions including: Diabetes, hypertension, and morbid obesity. * His creatinine kinase is significantly elevated (over 9000) for unknown reason. * Vital signs stable, T-max 101.5 yesterday morning, * White blood cell count decreased to 1.7. * CRP slightly increased at 16.4. * Troponin 0.039. * D-dimer is 0.87. * Blood sugars ranging from 218 down to 137 * Anticipate increasing blood sugars secondary to dexamethasone * started on remdesivir, dexamethasone, Actemra yesterday 05/11/2020 * Continuing worsening oxygenation requiring high flow nasal cannula. * Patient continues to have minimal shortness of breath at rest. * WBC increased to 2.96. * CRP significantly decreased to 6.6 from 16.4. * D-dimer slightly higher at 1.05. * Mag is slightly low at 1.7. * AST increased to 273, but ALT is 92. ALT is still less than 5 times the upper limit of normal, therefore not a contraindication to remdesivir. * Patient continues on remdesivir, dexamethasone, and 1 unit of convalescent plasma. He only received 1 unit last night secondary to concerns of fluid overload. * Patient received 40 mg of Lasix IV after his first unit of convalescent plasma. * Finished Actemra * Renal function is still good at GFR greater than 60, creatinine 1.2, but BUN slightly elevated at 28 * Blood sugars ranging from mid 100s up to 302. * Patient currently on Lantus 5 units at bedtime and sliding scale Humalog 05/12/2020 * Mild worsening of oxygenation requiring a increase in high flow nasal cannula. 30 L/min at 80% FiO2. * Vital signs: Afebrile, blood pressure stable, respiratory rate 20-30, heart rate 80s * WBC 3.06increased * CRP 3.8decreased * D-dimer 0.80decreased * Renal function: GFR greater than 60, creatinine 1.0 * Remdesivir 4 of 5 days, dexamethasone day 4 of 10 days, completed Actemra, completed 2 units of convalescent plasma * Azithromycin third day of 3, ceftriaxone day 3 of 5 * Blood sugars improved, ranging from 142 to 252 * Currently on Lantus 10 units at bedtime, increased from yesterday * Liver enzymes improved, AST 189, ALT 84. 05/13/2020 * Patient relatively stable today with continued 30 L/min at 80% FiO2 on high flow nasal cannula. * Vital signs stable. Blood pressure well controlled. Afebrile. Weight is down 3-1/2 kg from yesterday. * No labs today since yesterday's were stable and improved. * Fingerstick blood sugar still as high as 307. * Day 4 of ceftriaxone, day 5 of 10 of dexamethasone. * Completed remdesivir, Actemra, and 2 units of convalescent plasma * Increase Lantus tomorrow * Patient had no significant improvement or worsening today. Anticipate that he will slowly begin to improve over the next several days. We will likely have to accept oxygenation in the upper 80s to low 90s with O2 at time of discharge. 05/14/2020 * No significant change in respiratory status. Slightly improved but not significantly. * Labs continue to improve. D-dimer 1.07, C-reactive protein 1.2, AST 106, ALT 77, white count 3.76 * Estimated GFR greater than 60 * Day 5 of ceftriaxone * Day 6 of dexamethasone * Slightly increased Lantus by 3 units this morning and 10 units at night 05/15/2020 * Significant worsening of his hypoxemia and respiratory status. Patient has required increasing amounts of expiratory support and is currently on BiPAP 11/04 with approximately 20 L O2 bled in. Respiratory rate is elevated and he has increased work of breathing. * Patient understands that if he worsens anymore and he is not intubated we may not save his life. Patient's was also notified and also understands the gravity of the situation. Even if we were able to intubate Brett because of his severe underlying COPD, diabetes, hypertension and morbid obesity on top of having COVID pneumonia that appears to be worsening. We have tried pronating him, but he cannot tolerate being on his abdomen nor can he tolerate laying on his hip for any given period time because of pain. Patient does not want to lay on his left side because he hurts and has difficulty breathing. He was in the chair for a few hours today, but he is uncomfortable and requests to lay back in bed frequently. He leaves us with only s upination, slight right side, and head up to 45 to 70 degrees in bed. * He has finished remdesivir, ceftriaxone, azithromycin, and Actemra. * He has received 2 units of convalescent plasma. * He is on day 7 of dexamethasone * Blood pressures stable, afebrile * Approximate 20 pound weight loss with significant negative fluid balance * Acute renal injury * Pertinent labs: WBC increased to 10, sodium decreased to 132, worsening renal function BUN 46, creatinine 1.6, estimated GFR 43, d-dimer increased to 2.37, CRP decreased to 0.5 * Increase in WBC is likely secondary to stress considering CRP is decreased. * AST 83, ALT 89 05/16/2020 * Patient has had some improvement over the last 24 hours. He still requiring BiPAP, but his oxygen bleeding is only 15 L, down from approximately 20 L. * He did tolerate high flow nasal cannula for several hours today, but it was at 60 L at 100% FiO2. * Patient's appetite has improved over the last couple of days. He denies any decrease in smell or taste. * Day 8 of dexamethasone. * Blood pressure is well controlled with a map greater than 65. * Blood sugars have also improved without any blood sugars greater than 250 over the last 48 hours. * Acute renal injury has resolved. * WBCs decreased to 5.65 and CRP is now 0.4.. D-dimer decreased to 1.59 overnight. * Liver enzymes down, AST 59, ALT 67 * Patient appears to have plateaued and hopefully will start to improve over the next 24 to 48 hours. - Plan Plan:: Pneumonia due to COVID-19 virus Acute hypoxemic respiratory failure due to COVID-19 Leukopenia Pneumonia PLAN * Continue to change positions, adjust BiPAP for best oxygenation settings, encourage deep breathing, use high flow nasal cannula as appropriate, and respiratory therapy. * Albuterol inhaler 2 puffs every 2 hours PRN shortness of breath. * Continue updating his on his condition. * Patient continues to not want to be intubated. * Remdesivir completed * dexamethasone 6 mg orally day 8 of 10 days * Actemra x2 doses completed * 2 units of convalescent plasma completed * Azithromycin completed * Ceftriaxone completed COPD (chronic obstructive pulmonary disease) COPD, not oxygen dependent at home, but oxygen saturations apparently ranged between 85 and 90% Only home treatment is albuterol HFA twice daily Patient states home oxygen saturations are generally between 85 and 90% PLAN Monitor oxygenation Goal pulse ox above 84 albuterol prn Obstructive sleep apnea Endorses full compliance with nightly CPAP for LUKAS Pressure is 8, last adjustment about a year ago PLAN Use BiPAP as above Hypertension Blood pressure control is unable to be determined as patient was short of breath and in distress with initial vital signs Home management with amlodipine 10 and losartan 100 PLAN Continue home amlodipine -Hold losartan in the morning if kidney function continues to deteriorate PRN hydralazine for SBP above 200 and DBP above 100 Diabetes mellitus, HbA1c6.7% Diabetes appears to be controlled A1c of 6.7, might be a little bit different due to patient being anemic Glucose at home ranges between 125 and 145 as per patient Home management with metformin and glipizide Has never been on insulin Patient will be started on dexamethasone as per COVID management for which low dose long-acting insulin will be started and adjusted as necessary PLAN Scheduled Accu-Cheks before meals and at bedtime Hypoglycemia protocol Continue glargine 3 units in the morning and 10 units at bedtime -Sliding scale insulin Hold home metformin and glipizide during admission Microcytic hypochromic anemia Chronicity unknown Alters hemoglobin A1c measurement marginally Acute kidney injury due to [id number] Baseline GFR is unknown GFR on admission is 55 PLAN Continue to monitor with labs in the morning Monitor urine output. Strict I's and O's Elevated LFTs -Continue monitoring Hypoalbuminemia Morbid obesity with BMI of 50.0-59.9, adult Patient endorses very poor eating habits Has minimal daily activity pivoting to and from his scooter PLAN * Encourage adequate diet and supplements Hypothyroidism No acute issues identified On home levothyroxine 75 mcg PLAN * Continue home levothyroxine Dyslipidemia Patient likely has undiagnosed coronary artery disease * Identified Q waves on EKG in anterolateral leads and inferior leads Home management with atorvastatin 10, unsure if this covers his ASCVD risk PLAN * Continue atorvastatin and aspirin for now Gout Denies any previous exacerbations On home allopurinol 400 daily PLAN Continue home allopurinol at 400 daily for now PROPHYLAXIS DVTLovenox twice daily GInot indicated CODE STATUS: DO NOT INTUBATE, confirmed with patient that he changed his mind from previous advanced directives. I reaffirmed that today. PROGNOSIS: Patient has a very poor prognosis. He has multiple medical problems and is morbidly obese. This places him at a very high risk for complications and mortality. I discussed this with the patient. He stated he did not want to be intubated, but he would want CPR. DISPOSITION: Length of stay greater than 96 hours due to poor improvement and per remdesivir treatment regimen requirements. SOCIAL: Patient is a resident of [place], lives with his there who is medical power of employee benefits attorney. Normally does pivot to his scooter but has not been able to do so in the past couple of days Not oxygen dependent at home PCP is Dr. Robert Total time spent in critical care at bedside was 90 minutes. Time spent adjust ing and monitoring oxygenation, high flow nasal cannula, and BiPAP.
[2020-05-16] MEDS: Albuterol 6.7 GM Inhaler INH PRN (16:27)
[2020-05-16] MEDS: Melatonin 3 MG Tab PO PRN (20:34)
[2020-05-16] MEDS: traZODone 50 MG Tab PO PRN (20:34)
[2020-05-17] MEDS: Insulin Lispro 100 Units/ML 3 ML Vial SUBCUT SCH ×4 (06:19→21:25)
[2020-05-17] MEDS: Losartan 100 MG Tab PO SCH (08:00)
[2020-05-17] MEDS: Allopurinol 100 MG Tab PO SCH (08:00)
[2020-05-17] MEDS: Furosemide 40 MG Tab PO SCH (08:01)
[2020-05-17] MEDS: Dexamethasone 4 MG Tab PO SCH (08:01)
[2020-05-17] MEDS: Spironolactone 25 MG Tab PO SCH (08:18)
[2020-05-17] MEDS: Simvastatin 20 MG Tab PO SCH (08:18)
[2020-05-17] MEDS: Calcium Carbonate/Vitamin D3 600 MG-200 Units Tab PO SCH (08:18)
[2020-05-17] MEDS: Aspirin 81 MG Tab.Chew PO SCH (08:19)
[2020-05-17] MEDS: Enoxaparin 40 MG/0.4 ML Syringe SUBCUT SCH ×2 (08:19→21:22)
[2020-05-17] MEDS: Insulin Glarg,Human.Rec.Analog 100 Unit/ML SUBCUT SCH ×2 (08:19→21:18)
[2020-05-17] MEDS: Levothyroxine 50 MCG Tab PO SCH (11:47)
--- NOTE | 2020-05-17 17:05 | PCM.PN ---
- General Info Date of Service: 05/17/20 Admission Dx/Problem (Free Text): Admission Diagnosis/Problem Admission Diagnosis/Problem Viral pneumonia Subjective Update: Patient continues needing BiPAP or high flow nasal cannula to maintain oxygenation. His appetite is decreased, but it appears it may be partially due to not liking a diabetic diet. Patient had an episode last night where his BiPAP came off and his oxygen saturation quickly dropped into the 50s. When his mask was replaced his saturations increased again to the mid 80s. Patient states he is feeling well and he feels his breathing is better. Functional Status: Reports: Pain Controlled, Tolerating Diet - Review of Systems General: Reports: No Symptoms HEENT: Reports: No Symptoms Pulmonary: Reports: Shortness of Breath, Cough Cardiovascular: Reports: No Symptoms Musculoskeletal: Reports: No Symptoms - Patient Data Vitals - Most Recent: Last Vital Signs Temp 96.2 F L 05/17/20 12:00 Pulse 74 05/17/20 12:00 Resp 28 H 05/17/20 12:00 BP 118/71 05/17/20 12:00 Pulse Ox 86 L 05/17/20 12:00 Weight - Most Recent: 161.161 kg I&O - Last 24 Hours: Intake & Output 05/17/20 05/17/20 05/17/20 06:59 14:59 22:59 Intake Total 400 300 Output Total 400 800 Balance 0 -500 Lab Results Last 24 Hours: Laboratory Results - last 24 hr 05/16/20 05/16/20 05/16/20 Range/Units 12:29 16:29 20:36 WBC (4.23-9.07) K/mm3 RBC (4.63-6.08) M/mm3 Hgb (13.7-17.5) gm/dl Hct (40.1-51.0) % MCV (79.0-92.2) fl MCH (25.7-32.2) pg MCHC (32.2-35.5) g/dl RDW Std Deviation (35.1-43.9) fL Plt Count (163-337) K/mm3 MPV (9.4-12.3) fl Neut % (Auto) (34.0-67.9) % Lymph % (Auto) (21.8-53.1) % [place] % (Auto) (5.3-12.2) % Eos % (Auto) (0.8-7.0) Baso % (Auto) (0.1-1.2) % Neut # (Auto) (1.78-5.38) K/mm3 Lymph # (Auto) (1.32-3.57) K/mm3 [place] # (Auto) (0.30-0.82) K/mm3 Eos # (Auto) (0.04-0.54) K/mm3 Baso # (Auto) (0.01-0.08) K/mm3 Manual Slide Review D-Dimer, Quantitative (0.19-0.50) mg/L Sodium (136-145) mEq/L Potassium (3.5-5.1) mEq/L Chloride (98-107) mEq/L Carbon Dioxide (21-32) mEq/L Anion Gap (5-15) BUN (7-18) mg/dL Creatinine (0.7-1.3) mg/dL Est Cr Clr Drug Dosing mL/min Estimated GFR (MDRD) (>60) mL/min BUN/Creatinine Ratio (14-18) Glucose (80-115) mg/dL POC Glucose 202 H 232 H 215 H (80-115) mg/dL Calcium (8.5-10.1) mg/dL Phosphorus (2.6-4.7) mg/dL Magnesium (1.8-2.4) mg/dl Total Bilirubin (0.2-1.0) mg/dL AST (15-37) U/L ALT (16-63) U/L Alkaline Phosphatase (46-116) U/L C-Reactive Protein (<1.0) mg/dL Total Protein (6.4-8.2) g/dl Albumin (3.4-5.0) g/dl Globulin gm/dL Albumin/Globulin Ratio (1-2) 05/17/20 05/17/20 05/17/20 Range/Units 05:28 05:28 05:28 WBC 6.38 (4.23-9.07) K/mm3 RBC 5.21 (4.63-6.08) M/mm3 Hgb 15.6 (13.7-17.5) gm/dl Hct 47.1 (40.1-51.0) % MCV 90.4 (79.0-92.2) fl MCH 29.9 (25.7-32.2) pg MCHC 33.1 (32.2-35.5) g/dl RDW Std Deviation 43.8 (35.1-43.9) fL Plt Count 254 (163-337) K/mm3 MPV 9.9 (9.4-12.3) fl Neut % (Auto) 83.1 H (34.0-67.9) % Lymph % (Auto) 6.9 L (21.8-53.1) % [place] % (Auto) 8.5 (5.3-12.2) % Eos % (Auto) 0.2 L (0.8-7.0) Baso % (Auto) 0.2 (0.1-1.2) % Neut # (Auto) 5.31 (1.78-5.38) K/mm3 Lymph # (Auto) 0.44 L (1.32-3.57) K/mm3 [place] # (Auto) 0.54 (0.30-0.82) K/mm3 Eos # (Auto) 0.01 L (0.04-0.54) K/mm3 Baso # (Auto) 0.01 (0.01-0.08) K/mm3 Manual Slide Review Abnormal smear D-Dimer, Quantitative 1.51 H (0.19-0.50) mg/L Sodium 135 L (136-145) mEq/L Potassium 3.9 (3.5-5.1) mEq/L Chloride 97 L (98-107) mEq/L Carbon Dioxide 28 (21-32) mEq/L Anion Gap 13.9 (5-15) BUN 40 H (7-18) mg/dL Creatinine 1.2 (0.7-1.3) mg/dL Est Cr Clr Drug Dosing 54.32 mL/min Estimated GFR (MDRD) > 60 (>60) mL/min BUN/Creatinine Ratio 33.3 H (14-18) Glucose 204 H (80-115) mg/dL POC Glucose (80-115) mg/dL Calcium 8.8 (8.5-10.1) mg/dL Phosphorus 4.1 (2.6-4.7) mg/dL Magnesium 1.8 (1.8-2.4) mg/dl Total Bilirubin 0.7 (0.2-1.0) mg/dL AST 48 H (15-37) U/L ALT 62 (16-63) U/L Alkaline Phosphatase 48 (46-116) U/L C-Reactive Protein < 0.2 (<1.0) mg/dL Total Protein 6.9 (6.4-8.2) g/dl Albumin 3.2 L (3.4-5.0) g/dl Globulin 3.7 gm/dL Albumin/Globulin Ratio 0.9 L (1-2) 05/17/20 05/17/20 05/17/20 Range/Units 06:20 11:44 16:46 WBC (4.23-9.07) K/mm3 RBC (4.63-6.08) M/mm3 Hgb (13.7-17.5) gm/dl Hct (40.1-51.0) % MCV (79.0-92.2) fl MCH (25.7-32.2) pg MCHC (32.2-35.5) g/dl RDW Std Deviation (35.1-43.9) fL Plt Count (163-337) K/mm3 MPV (9.4-12.3) fl Neut % (Auto) (34.0-67.9) % Lymph % (Auto) (21.8-53.1) % [place] % (Auto) (5.3-12.2) % Eos % (Auto) (0.8-7.0) Baso % (Auto) (0.1-1.2) % Neut # (Auto) (1.78-5.38) K/mm3 Lymph # (Auto) (1.32-3.57) K/mm3 [place] # (Auto) (0.30-0.82) K/mm3 Eos # (Auto) (0.04-0.54) K/mm3 Baso # (Auto) (0.01-0.08) K/mm3 Manual Slide Review D-Dimer, Quantitative (0.19-0.50) mg/L Sodium (136-145) mEq/L Potassium (3.5-5.1) mEq/L Chloride (98-107) mEq/L Carbon Dioxide (21-32) mEq/L Anion Gap (5-15) BUN (7-18) mg/dL Creatinine (0.7-1.3) mg/dL Est Cr Clr Drug Dosing mL/min Estimated GFR (MDRD) (>60) mL/min BUN/Creatinine Ratio (14-18) Glucose (80-115) mg/dL POC Glucose 178 H 202 H 267 H (80-115) mg/dL Calcium (8.5-10.1) mg/dL Phosphorus (2.6-4.7) mg/dL Magnesium (1.8-2.4) mg/dl Total Bilirubin (0.2-1.0) mg/dL AST (15-37) U/L ALT (16-63) U/L Alkaline Phosphatase (46-116) U/L C-Reactive Protein (<1.0) mg/dL Total Protein (6.4-8.2) g/dl Albumin (3.4-5.0) g/dl Globulin gm/dL Albumin/Globulin Ratio (1-2) Med Orders - Current: Current Medications Acetaminophen (Tylenol) 650 mg PO Q4H PRN PRN Reason: Pain (Mild 1-3)/fever Albuterol (Proventil Hfa) 0 gm INH Q2H PRN PRN Reason: Dyspnea Last Admin: 05/16/20 16:27 Dose: 2 puff Documented by: Allopurinol (Zyloprim) 400 mg PO DAILY [facility] Last Admin: 05/17/20 08:00 Dose: 400 mg Documented by: Aspirin (Aspirin) 81 mg PO DAILY [facility] Last Admin: 05/17/20 08:19 Dose: 81 mg Documented by: Calcium Carbonate (Calcium Carbonate/Vitamin D 600 Mg-200 Unit) 1 tab PO DAILY [facility] Last Admin: 05/17/20 08:18 Dose: 1 tab Documented by: Dexamethasone (Dexamethasone) 6 mg PO DAILY [facility] Stop: 05/18/20 09:01 Last Admin: 05/17/20 08:01 Dose: 6 mg Documented by: Dextrose/Water (Dextrose 50% In Water) 50 ml IVPUSH ASDIRECTED PRN PRN Reason: Hypoglycemia Enoxaparin Sodium (Lovenox) 40 mg SUBCUT BID [facility] Last Admin: 05/17/20 08:19 Dose: 40 mg Documented by: Furosemide (Lasix) 40 mg PO DAILY [facility] Last Admin: 05/17/20 08:01 Dose: 40 mg Documented by: Hydralazine HCl (Apresoline) 10 mg IVPUSH Q2H PRN PRN Reason: Hypertension Insulin Glargine (Lantus) 10 unit SUBCUT BEDTIME [facility] Last Admin: 05/16/20 20:52 Dose: 10 units Documented by: Insulin Glargine (Lantus) 6 unit SUBCUT DAILY [facility] Insulin Human Lispro (Humalog) 0 unit SUBCUT QIDACANDBED [facility]; Protocol Last Admin: 05/17/20 15:44 Dose: Not Given Documented by: Levothyroxine Sodium (Levothyroxine) 25 mcg PO SuTuThSa [facility] Last Admin: 05/16/20 12:30 Dose: 25 mcg Documented by: Levothyroxine Sodium (Synthroid) 50 mcg PO MoWeFr [facility] Last Admin: 05/17/20 11:47 Dose: 50 mcg Documented by: Lorazepam (Ativan) 1 mg IVPUSH Q2HR PRN PRN Reason: Anxiety Last Admin: 05/16/20 23:39 Dose: 1 mg Documented by: Losartan Potassium (Cozaar) 100 mg PO DAILY [facility] Last Admin: 05/17/20 08:00 Dose: 100 mg Documented by: Melatonin (Melatonin) 9 mg PO BEDTIME PRN PRN Reason: Insomnia Last Admin: 05/16/20 20:34 Dose: 9 mg Documented by: Nystatin (Nystop) 1 gm TOP QID PRN PRN Reason: excoriation Last Admin: 05/16/20 09:13 Dose: 1 applic Documented by: Ondansetron HCl (Zofran Odt) 4 mg PO Q6H PRN PRN Reason: nausea, able to take PO Ondansetron HCl (Zofran) 4 mg IV Q6H PRN PRN Reason: Nausea/Vomiting Simvastatin (Zocor) 20 mg PO DAILY [facility] Last Admin: 05/17/20 08:18 Dose: 20 mg Documented by: Spironolactone (Aldactone) 25 mg PO DAILY [facility] Last Admin: 05/17/20 08:18 Dose: 25 mg Documented by: Trazodone HCl (Trazodone) 50 mg PO BEDTIME PRN PRN Reason: Insomnia Last Admin: 05/16/20 20:34 Dose: 50 mg Documented by: Discontinued Medications Acetaminophen (Tylenol) 975 mg PO ONETIME ONE Stop: 05/09/20 08:57 Last Admin: 05/09/20 09:34 Dose: 975 mg Documented by: Albuterol (Proventil Hfa) 0 gm INH Q2H PRN PRN Reason: Wheezing Last Admin: 05/15/20 16:26 Dose: 1 puff Documented by: Dexamethasone (Dexamethasone) 6 mg IVPUSH Q24H [facility] Last Admin: 05/10/20 11:31 Dose: 6 mg Documented by: Enoxaparin Sodium (Lovenox) 40 mg SUBCUT Q12H [facility] Last Admin: 05/10/20 22:50 Dose: Not Given Documented by: Furosemide (Lasix) 40 mg IVPUSH ONETIME ONE Stop: 05/10/20 21:16 Last Admin: 05/10/20 21:35 Dose: 40 mg Documented by: Furosemide (Lasix) 20 mg IVPUSH ONETIME ONE Stop: 05/11/20 16:01 Last Admin: 05/11/20 16:18 Dose: 20 mg Documented by: Furosemide (Lasix) 40 mg IVPUSH NOW ONE Stop: 05/12/20 09:01 Last Admin: 05/12/20 09:06 Dose: 40 mg Documented by: Sodium Chloride (Normal Saline) 1,000 mls @ 150 mls/hr IV ASDIRECTED [facility] Last Admin: 05/10/20 11:31 Dose: 150 mls/hr Documented by: Remdesivir 200 mg/ Sodium (Chloride) 250 mls @ 250 mls/hr IV ONETIME ONE Stop: 05/09/20 12:59 Last Admin: 05/09/20 11:47 Dose: 250 mls/hr Documented by: Remdesivir 100 mg/ Sodium (Chloride) 100 mls @ 100 mls/hr IV Q24H [facility] Stop: 05/13/20 12:59 Last Admin: 05/13/20 12:26 Dose: 100 mls/hr Documented by: Tocilizumab 800 mg/ Sodium (Chloride) 100 mls @ 100 mls/hr IV Q12H [facility] Stop: 05/10/20 01:59 Tocilizumab 800 mg/ Sodium (Chloride) 100 mls @ 100 mls/hr IV Q12H [facility] Stop: 05/10/20 01:59 Last Admin: 05/10/20 00:42 Dose: 100 mls/hr Documented by: Ceftriaxone Sodium 2 gm/ (Sodium Chloride) 100 mls @ 200 mls/hr IV Q24H [facility] Stop: 05/14/20 09:29 Last Admin: 05/14/20 09:31 Dose: 200 mls/hr Documented by: Azithromycin 500 mg/ Sodium (Chloride) 250 mls @ 250 mls/hr IV Q24H [facility] Stop: 05/12/20 10:29 Last Admin: 05/12/20 10:22 Dose: 250 mls/hr Documented by: Sodium Chloride (Normal Saline) 1,000 mls @ 50 mls/hr IV ASDIRECTED [facility] Sodium Chloride (Normal Saline) Confirm Administered Dose 250 mls @ as directed .ROUTE .STK-MED ONE Stop: 05/11/20 11:04 Last Admin: 05/11/20 11:35 Dose: 500 mls/hr Documented by: Magnesium Sulfate 2 gm/ Premix 50 mls @ 25 mls/hr IV ONETIME ONE Stop: 05/11/20 17:29 Last Admin: 05/11/20 16:17 Dose: 25 mls/hr Documented by: Insulin Glargine (Lantus) 5 unit SUBCUT BEDTIME [facility] Last Admin: 05/10/20 20:40 Dose: 5 units Documented by: Insulin Glargine (Lantus) 3 unit SUBCUT DAILY [facility] Last Admin: 05/17/20 08:19 Dose: 3 unit Documented by: Levothyroxine Sodium (Levothyroxine) 50 mcg PO MoWeFr [facility] Last Admin: 05/10/20 10:26 Dose: Not Given Documented by: Tocilizumab (Actemra) 800 mg IV Q12HR [facility] Stop: 05/10/20 09:01 - Exam Quality Assessment: Supplemental Oxygen, Urine Catheter General: Alert, Oriented HEENT: Pupils Equal, Mucous Membr. Moist/[place] Neck: Supple Lungs: Decreased Breath Sounds. No: Normal Respiratory Effort (Increased respiratory effort, but improved from yesterday.) Cardiovascular: Regular Rate, Regular Rhythm GI/Abdominal Exam: Normal Bowel Sounds, Soft, Non-Tender, No Distention Extremities: Normal Inspection, No Pedal Edema, Normal Capillary Refill Skin: Warm, Dry, Intact Psy/Mental Status: Alert, Normal Affect, Normal Mood Sepsis Event Note - Evaluation Sepsis Screening Result: Severe Sepsis Risk - Focused Exam Vital Signs: Vital Signs Temp Pulse Resp BP BP Pulse Ox Pulse Ox 05/17/20 12:00 96.2 F L 74 28 H 118/71 86 L 05/17/20 09:44 88 L 05/17/20 09:10 88 L 05/17/20 08:00 111/61 05/17/20 07:51 96.5 F L 94 23 H 111/61 85 L - Problem List & Annotations (1) Acute hypoxemic respiratory failure due to COVID-19 SNOMED Code(s): 830793626 Code(s): U07.1 - COVID-19; J96.01 - ACUTE RESPIRATORY FAILURE WITH HYPOXIA Status: Acute Current Visit: Yes (2) Acute kidney injury due to COVID-19 SNOMED Code(s): 665034988 Code(s): U07.1 - COVID-19; N17.9 - ACUTE KIDNEY FAILURE, UNSPECIFIED Status: Acute Current Visit: Yes (3) COPD (chronic obstructive pulmonary disease) SNOMED Code(s): 26354455 Code(s): J44.9 - CHRONIC OBSTRUCTIVE PULMONARY DISEASE, UNSPECIFIED Status: Acute Current Visit: Yes (4) Diabetes mellitus SNOMED Code(s): 66875514 Code(s): E11.9 - TYPE 2 DIABETES MELLITUS WITHOUT COMPLICATIONS Status: Acute Current Visit: Yes (5) Morbid obesity with BMI of 50.0-59.9, adult SNOMED Code(s): 536133016, 84157981760385 Code(s): E66.01 - MORBID (SEVERE) OBESITY DUE TO EXCESS CALORIES; Z68.43 - BODY MASS INDEX (BMI) 50.0-59.9, ADULT Status: Acute Current Visit: Yes (6) Pneumonia due to COVID-19 virus SNOMED Code(s): 645870756 Code(s): U07.1 - COVID-19; J12.89 - OTHER VIRAL PNEUMONIA Status: Acute Current Visit: Yes - Problem List Review Problem List Initiated/Reviewed/Updated: Yes - My Orders Last 24 Hours: My Active Orders 05/17/20 Dinner Regular Diet [DIET] 05/18/20 09:00 Insulin Glarg,Human.Rec.Analog [LantUS] 6 unit SUBCUT DAILY - Assessment Assessment:: 05/09/2020 Brought in via EMS from [place] for worsening shortness of breath, hypoxemia and 2 falls associated with [place] and chills last night Vital signs Prior to transfer: Rate 128, respiratory rate 38, blood pressure 134/50 temp 100.8, felt 70% on room air Upon arrival to ED: Heart rate 113, blood pressure 144/123 (130), temperature 101.5, pulse ox 82% on room air (went up to 92% on 3 L) Placed on nasal cannula once in the emergency department did stabilize pulse ox Lab results CBC: WBC 6.8, hemoglobin 13 (macrocytic hypochromic), platelets 212 Chemistry: Sodium 133, potassium 4, chloride 95, magnesium 1.9, CO2 27, GFR 55, glucose 126 LFTs: Total bilirubin 0.4, alkaline phosphatase 46, AST 43, ALT 52, total protein 7.1, albumin 3.2 D-dimer 0.85 Lactate 0.9 Ferritin 243 proBNP 226 CRP 14 ABGs: 7.38/40 5.1/80 05/16 6.1/95.1 on 3 L nasal cannula Hemoglobin A1c 6.7 COVID 19 + Other results: Chest x-ray: Bilateral patchy infiltrates throughout lung [place], diminished lung size, no pleural effusions EKG: Left axis deviation, Q waves in inferior and anterior leads (III, aVF, V4 through V6) 05/10/2020 * Continued worsening oxygenation secondary to COVID-19. * Patient is at very high risk for worsening and severe symptoms secondary to his underlying medical conditions including: Diabetes, hypertension, and morbid obesity. * His creatinine kinase is significantly elevated (over 9000) for unknown reason. * Vital signs stable, T-max 101.5 yesterday morning, * White blood cell count decreased to 1.7. * CRP slightly increased at 16.4. * Troponin 0.039. * D-dimer is 0.87. * Blood sugars ranging from 218 down to 137 * Anticipate increasing blood sugars secondary to dexamethasone * started on remdesivir, dexamethasone, Actemra yesterday 05/11/2020 * Continuing worsening oxygenation requiring high flow nasal cannula. * Patient continues to have minimal shortness of breath at rest. * WBC increased to 2.96. * CRP significantly decreased to 6.6 from 16.4. * D-dimer slightly higher at 1.05. * Mag is slightly low at 1.7. * AST increased to 273, but ALT is 92. ALT is still less than 5 times the upper limit of normal, therefore not a contraindication to remdesivir. * Patient continues on remdesivir, dexamethasone, and 1 unit of convalescent plasma. He only received 1 unit last night secondary to concerns of fluid overload. * Patient received 40 mg of Lasix IV after his first unit of convalescent plasma. * Finished Actemra * Renal function is still good at GFR greater than 60, creatinine 1.2, but BUN slightly elevated at 28 * Blood sugars ranging from mid 100s up to 302. * Patient currently on Lantus 5 units at bedtime and sliding scale Humalog 05/12/2020 * Mild worsening of oxygenation requiring a increase in high flow nasal cannula. 30 L/min at 80% FiO2. * Vital signs: Afebrile, blood pressure stable, respiratory rate 20-30, heart rate 80s * WBC 3.06increased * CRP 3.8decreased * D-dimer 0.80decreased * Renal function: GFR greater than 60, creatinine 1.0 * Remdesivir 4 of 5 days, dexamethasone day 4 of 10 days, completed Actemra, completed 2 units of convalescent plasma * Azithromycin third day of 3, ceftriaxone day 3 of 5 * Blood sugars improved, ranging from 142 to 252 * Currently on Lantus 10 units at bedtime, increased from yesterday * Liver enzymes improved, AST 189, ALT 84. 05/13/2020 * Patient relatively stable today with continued 30 L/min at 80% FiO2 on high flow nasal cannula. * Vital signs stable. Blood pressure well controlled. Afebrile. Weight is down 3-1/2 kg from yesterday. * No labs today since yesterday's were stable and improved. * Fingerstick blood sugar still as high as 307. * Day 4 of ceftriaxone, day 5 of 10 of dexamethasone. * Completed remdesivir, Actemra, and 2 units of convalescent plasma * Increase Lantus tomorrow * Patient had no significant improvement or worsening today. Anticipate that he will slowly begin to improve over the next several days. We will likely have to accept oxygenation in the upper 80s to low 90s with O2 at time of discharge. 05/14/2020 * No significant change in respiratory status. Slightly improved but not significantly. * Labs continue to improve. D-dimer 1.07, C-reactive protein 1.2, AST 106, ALT 77, white count 3.76 * Estimated GFR greater than 60 * Day 5 of ceftriaxone * Day 6 of dexamethasone * Slightly increased Lantus by 3 units this morning and 10 units at night 05/15/2020 * Significant worsening of his hypoxemia and respiratory status. Patient has required increasing amounts of expiratory support and is currently on BiPAP 11/04 with approximately 20 L O2 bled in. Respiratory rate is elevated and he has increased work of breathing. * Patient understands that if he worsens anymore and he is not intubated we may not save his life. Patient's was also notified and also understands the gravity of the situation. Even if we were able to intubate Brett because of his severe underlying COPD, diabetes, hypertension and morbid obesity on top of having COVID pneumonia that appears to be worsening. We have tried pronating him, but he cannot tolerate being on his abdomen nor can he tolerate laying on his hip for any given period time because of pain. Patient does not want to lay on his left side because he hurts and has difficulty breathing. He was in the chair for a few hours today, but he is uncomfortable and requests to lay back in bed frequently. He leaves us with only supination, slight right side, and head up to 45 to 70 degrees in bed. * He has finished remdesivir, ceftriaxone, azithromycin, and Actemra. * He has received 2 units of convalescent plasma. * He is on day 7 of dexamethasone * Blood pressures stable, afebrile * Approximate 20 pound weight loss with significant negative fluid balance * Acute renal injury * Pertinent labs: WBC increased to 10, sodium decreased to 132, worsening renal function BUN 46, creatinine 1.6, estimated GFR 43, d-dimer increased to 2.37, CRP decreased to 0.5 * Increase in WBC is likely secondary to stress considering CRP is decreased. * AST 83, ALT 89 05/16/2020 * Patient has had some improvement over the last 24 hours. He still requiring BiPAP, but his oxygen bleeding is only 15 L, down from approximately 20 L. * He did tolerate high flow nasal cannula for several hours today, but it was at 60 L at 100% FiO2. * Patient's appetite has improved over the last couple of days. He denies any decrease in smell or taste. * Day 8 of dexamethasone. * Blood pressure is well controlled with a map greater than 65. * Blood sugars have also improved without any blood sugars greater than 250 over the last 48 hours. * Acute renal injury has resolved. * WBCs decreased to 5.65 and CRP is now 0.4.. D-dimer decreased to 1.59 overnight. * Liver enzymes down, AST 59, ALT 67 * Patient appears to have plateaued and hopefully will start to improve over the next 24 to 48 hours. 05/17/2020 * Continues requiring significant respiratory support either with BiPAP or high flow nasal cannula. * BiPAP settings: 11/06 with 15 L bled in * High flow nasal cannula at 60 L/min 80% FiO2. * When eating he uses the high flow nasal cannula and when in bed or sleeping he is on BiPAP. * Patient is alert, oriented, and not in distress. * He continues to have episodes of hypoxemia down into the 70s and below if he is off his O2 for any amount of time. * Vital signs stable except for significantly low O2 of mid 80s to upper 80s on the above O2 settings * WBC 6.38, d-dimer 1.51, CRP less than 0.2, hemoglobin 15.6, sodium 135, potassium 3.9, bicarb 28, BUN 40, creatinine 1.2, GFR greater than 60, glucose 204 * Blood sugars range from 178 to 267 * Day 9 of dexamethasone - Plan Plan:: Pneumonia due to COVID-19 virus Acute hypoxemic respiratory failure due to COVID-19 Leukopenia Pneumonia PLAN * Continue to change positions, adjust BiPAP for best oxygenation settings, encourage deep breathing, use high flow nasal cannula at mealtime, and respiratory therapy to closely monitor. * Albuterol inhaler 2 puffs every 2 hours PRN shortness of breath. * Continue updating his on his condition. * Patient continues to not want to be intubated. * Remdesivir completed * dexamethasone 6 mg orally day 9 of 10 days * Actemra x2 doses completed * 2 units of convalescent plasma completed * Azithromycin completed * Ceftriaxone completed COPD (chronic obstructive pulmonary disease) COPD, not oxygen dependent at home, but oxygen saturations apparently ranged between 85 and 90% Only home treatment is albuterol HFA twice daily Patient states home oxygen saturations are generally between 85 and 90% PLAN Monitor oxygenation Goal pulse ox above 84 albuterol prn Obstructive sleep apnea Endorses full compliance with nightly CPAP for [place] Pressure is 8, last adjustment about a year ago PLAN Use BiPAP as above Hypertension Blood pressure control is unable to be determined as patient was short of breath and in distress with initial vital signs Home management with amlodipine 10 and losartan 100 PLAN Continue home amlodipine -Continue losartan PRN hydralazine for SBP above 200 and DBP above 100 Diabetes mellitus, HbA1c6.7% Diabetes appears to be controlled A1c of 6.7, might be a little bit different due to patient being anemic Glucose at home ranges between 125 and 145 as per patient Home management with metformin and glipizide Has never been on insulin Patient will be started on dexamethasone as per COVID management for which low dose long-acting insulin will be started and adjusted as necessary PLAN Scheduled Accu-Cheks before meals and at bedtime Hypoglycemia protocol Continue glargine 3 units in the morning and 10 units at bedtime -Sliding scale insulin Hold home metformin and glipizide during admission Microcytic hypochromic anemia Chronicity unknown Alters hemoglobin A1c measurement marginally Acute kidney injury due to [id number] Baseline GFR is unknown GFR on admission is 55 PLAN Continue to monitor with labs in the morning Monitor urine output. Strict I's and O's Elevated LFTs -Continue monitoring Hypoalbuminemia Morbid obesity with BMI of 50.0-59.9, adult Patient endorses very poor eating habits Has minimal daily activity pivoting to and from his scooter PLAN * Encourage adequate diet and supplements Hypothyroidism No acute issues identified On home levothyroxine 75 mcg PLAN * Continue home levothyroxine Dyslipidemia Patient likely has undiagnosed coronary artery disease * Identified Q waves on EKG in anterolateral leads and inferior leads Home management with atorvastatin 10, unsure if this covers his ASCVD risk PLAN * Continue atorvastatin and aspirin for now Gout Denies any previous exacerbations On home allopurinol 400 daily PLAN Continue home allopurinol at 400 daily for now PROPHYLAXIS DVTLovenox twice daily GInot indicated CODE STATUS: DO NOT INTUBATE, confirmed with patient that he changed his mind from previous advanced directives. I reaffirmed that today. PROGNOSIS: Patient has a very poor prognosis. He has multiple medical problems and is morbidly obese. This places him at a very high risk for complications and mortality. I discussed this with the patient. He stated he did not want to be intubated, but he would want CPR. DISPOSITION: Length of stay greater than 96 hours due to poor improvement and per remdesivir treatment regimen requirements. SOCIAL: Patient is a resident of [place], lives with his there who is medical power of disability attorney. Normally does pivot to his scooter but has not been able to do so in the past couple of days Not oxygen dependent at home PCP is Dr. Robert
[2020-05-17] MEDS: Melatonin 3 MG Tab PO PRN (21:23)
[2020-05-17] MEDS: traZODone 50 MG Tab PO PRN (21:23)
[2020-05-18] MEDS: Acetaminophen 325 MG Tab PO PRN ×2 (00:43→23:59)
[2020-05-18] MEDS: Albuterol 6.7 GM Inhaler INH PRN ×2 (08:32→21:59)
[2020-05-18] MEDS: Insulin Lispro 100 Units/ML 3 ML Vial SUBCUT SCH ×5 (09:20→21:35)
[2020-05-18] MEDS: Insulin Glarg,Human.Rec.Analog 100 Unit/ML SUBCUT SCH ×2 (09:24→20:28)
[2020-05-18] MEDS: Enoxaparin 40 MG/0.4 ML Syringe SUBCUT SCH ×2 (09:25→20:28)
[2020-05-18] MEDS: Aspirin 81 MG Tab.Chew PO SCH (09:27)
[2020-05-18] MEDS: Spironolactone 25 MG Tab PO SCH (09:27)
[2020-05-18] MEDS: Furosemide 40 MG Tab PO SCH (09:29)
[2020-05-18] MEDS: Allopurinol 100 MG Tab PO SCH (09:30)
[2020-05-18] MEDS: Calcium Carbonate/Vitamin D3 600 MG-200 Units Tab PO SCH (09:35)
[2020-05-18] MEDS: Dexamethasone 4 MG Tab PO SCH (09:35)
[2020-05-18] MEDS: Losartan 100 MG Tab PO SCH (09:37)
[2020-05-18] MEDS: Simvastatin 20 MG Tab PO SCH (09:52)
[2020-05-18] MEDS: Levothyroxine 25 MCG Tab PO SCH (11:34)
--- NOTE | 2020-05-18 11:50 | CR ---
Chest: Portable supine view of the chest was obtained. Comparison: Prior chest x-ray of 05/15/20. Hazy areas of increased density throughout both lungs are noted with increased lung markings. Heart size and mediastinum are stable. Bony structures are grossly intact. Impression: 1. Stable chest x-ray from previous exam. 2. No definite interval change is appreciated. Diagnostic code #3 This report was dictated in MDT
--- NOTE | 2020-05-18 13:00 | PCM.PN ---
- General Info Date of Service: 05/18/20 Admission Dx/Problem (Free Text): Admission Diagnosis/Problem Admission Diagnosis/Problem Viral pneumonia Subjective Update: Patient continues to improve. Appetite is stable and good. He did have a positive fluid balance yesterday with reported half kilo weight gain overnight. Oxygen saturations continue to be in the upper 80s and 90s, but this is improved although he is on a very aggressive respiratory support.. Functional Status: Reports: Pain Controlled - Review of Systems General: Reports: No Symptoms HEENT: Reports: No Symptoms Pulmonary: Reports: Shortness of Breath Cardiovascular: Reports: No Symptoms Gastrointestinal: Reports: No Symptoms Musculoskeletal: Reports: No Symptoms Psychiatric: Reports: No Symptoms - Patient Data Vitals - Most Recent: Last Vital Signs Temp 96.2 F L 05/18/20 08:00 Pulse 70 05/18/20 00:00 Resp 19 05/18/20 12:05 BP 107/63 05/18/20 09:37 Pulse Ox 87 L 05/18/20 12:05 Weight - Most Recent: 161.649 kg I&O - Last 24 Hours: Intake & Output 05/17/20 05/18/20 05/18/20 22:59 06:59 14:59 Intake Total 2460 1200 180 Output Total 800 800 125 Balance 1660 400 55 Imaging Impressions - Last 24 Hours: Chest x-ray: 1 view shows no significant change. Lab Results Last 24 Hours: Laboratory Results - last 24 hr 05/17/20 05/17/20 05/18/20 Range/Units 16:46 21:20 05:16 WBC 5.78 (4.23-9.07) K/mm3 RBC 5.21 (4.63-6.08) M/mm3 Hgb 15.5 (13.7-17.5) gm/dl Hct 47.5 (40.1-51.0) % MCV 91.2 (79.0-92.2) fl MCH 29.8 (25.7-32.2) pg MCHC 32.6 (32.2-35.5) g/dl RDW Std Deviation 44.8 H (35.1-43.9) fL Plt Count 251 (163-337) K/mm3 MPV 10.5 (9.4-12.3) fl Neut % (Auto) 76.4 H (34.0-67.9) % Lymph % (Auto) 11.1 L (21.8-53.1) % [place] % (Auto) 9.9 (5.3-12.2) % Eos % (Auto) 1.2 (0.8-7.0) Baso % (Auto) 0.2 (0.1-1.2) % Neut # (Auto) 4.42 (1.78-5.38) K/mm3 Lymph # (Auto) 0.64 L (1.32-3.57) K/mm3 [place] # (Auto) 0.57 (0.30-0.82) K/mm3 Eos # (Auto) 0.07 (0.04-0.54) K/mm3 Baso # (Auto) 0.01 (0.01-0.08) K/mm3 Manual Slide Review Normal smear Sodium (136-145) mEq/L Potassium (3.5-5.1) mEq/L Chloride (98-107) mEq/L Carbon Dioxide (21-32) mEq/L Anion Gap (5-15) BUN (7-18) mg/dL Creatinine (0.7-1.3) mg/dL Est Cr Clr Drug Dosing mL/min Estimated GFR (MDRD) (>60) mL/min BUN/Creatinine Ratio (14-18) Glucose (80-115) mg/dL POC Glucose 267 H 209 H (80-115) mg/dL Calcium (8.5-10.1) mg/dL Magnesium (1.8-2.4) mg/dl Total Bilirubin (0.2-1.0) mg/dL AST (15-37) U/L ALT (16-63) U/L Alkaline Phosphatase (46-116) U/L Total Protein (6.4-8.2) g/dl Albumin (3.4-5.0) g/dl Globulin gm/dL Albumin/Globulin Ratio (1-2) 05/18/20 05/18/20 05/18/20 Range/Units 05:16 09:15 11:37 WBC (4.23-9.07) K/mm3 RBC (4.63-6.08) M/mm3 Hgb (13.7-17.5) gm/dl Hct (40.1-51.0) % MCV (79.0-92.2) fl MCH (25.7-32.2) pg MCHC (32.2-35.5) g/dl RDW Std Deviation (35.1-43.9) fL Plt Count (163-337) K/mm3 MPV (9.4-12.3) fl Neut % (Auto) (34.0-67.9) % Lymph % (Auto) (21.8-53.1) % [place] % (Auto) (5.3-12.2) % Eos % (Auto) (0.8-7.0) Baso % (Auto) (0.1-1.2) % Neut # (Auto) (1.78-5.38) K/mm3 Lymph # (Auto) (1.32-3.57) K/mm3 [place] # (Auto) (0.30-0.82) K/mm3 Eos # (Auto) (0.04-0.54) K/mm3 Baso # (Auto) (0.01-0.08) K/mm3 Manual Slide Review Sodium 136 (136-145) mEq/L Potassium 4.3 (3.5-5.1) mEq/L Chloride 99 (98-107) mEq/L Carbon Dioxide 29 (21-32) mEq/L Anion Gap 12.3 (5-15) BUN 41 H (7-18) mg/dL Creatinine 1.2 (0.7-1.3) mg/dL Est Cr Clr Drug Dosing 54.32 mL/min Estimated GFR (MDRD) > 60 (>60) mL/min BUN/Creatinine Ratio 34.2 H (14-18) Glucose 136 H (80-115) mg/dL POC Glucose 118 H 180 H (80-115) mg/dL Calcium 9.2 (8.5-10.1) mg/dL Magnesium 2.0 (1.8-2.4) mg/dl Total Bilirubin 0.6 (0.2-1.0) mg/dL AST 35 (15-37) U/L ALT 53 (16-63) U/L Alkaline Phosphatase 48 (46-116) U/L Total Protein 6.8 (6.4-8.2) g/dl Albumin 3.2 L (3.4-5.0) g/dl Globulin 3.6 gm/dL Albumin/Globulin Ratio 0.9 L (1-2) Med Orders - Current: Current Medications Acetaminophen (Tylenol) 650 mg PO Q4H PRN PRN Reason: Pain (Mild 1-3)/fever Last Admin: 05/18/20 00:43 Dose: 650 mg Documented by: Albuterol (Proventil Hfa) 0 gm INH Q2H PRN PRN Reason: Dyspnea Last Admin: 05/18/20 08:32 Dose: 2 puff Documented by: Albuterol/Ipratropium (Duoneb 3.0-0.5 Mg/3 Ml) 3 ml NEB Q4HRRT PRN PRN Reason: Shortness of Breath Allopurinol (Zyloprim) 400 mg PO DAILY [facility] Last Admin: 05/18/20 09:30 Dose: 400 mg Documented by: Aspirin (Aspirin) 81 mg PO DAILY [facility] Last Admin: 05/18/20 09:27 Dose: 81 mg Documented by: Calcium Carbonate (Calcium Carbonate/Vitamin D 600 Mg-200 Unit) 1 tab PO DAILY [facility] Last Admin: 05/18/20 09:35 Dose: 1 tab Documented by: Dextrose/Water (Dextrose 50% In Water) 50 ml IVPUSH ASDIRECTED PRN PRN Reason: Hypoglycemia Enoxaparin Sodium (Lovenox) 40 mg SUBCUT BID [facility] Last Admin: 05/18/20 09:25 Dose: 40 mg Documented by: Furosemide (Lasix) 40 mg PO DAILY [facility] Last Admin: 05/18/20 09:29 Dose: 40 mg Documented by: Hydralazine HCl (Apresoline) 10 mg IVPUSH Q2H PRN PRN Reason: Hypertension Insulin Glargine (Lantus) 10 unit SUBCUT BEDTIME [facility] Last Admin: 05/17/20 21:18 Dose: 10 units Documented by: Insulin Glargine (Lantus) 6 unit SUBCUT DAILY [facility] Last Admin: 05/18/20 09:24 Dose: 6 units Documented by: Insulin Human Lispro (Humalog) 0 unit SUBCUT QIDACANDBED [facility]; Protocol Last Admin: 05/18/20 11:38 Dose: 1 units Documented by: Levothyroxine Sodium (Levothyroxine) 25 mcg PO SuTuThSa [facility] Last Admin: 05/18/20 11:34 Dose: 25 mcg Documented by: Levothyroxine Sodium (Synthroid) 50 mcg PO MoWeFr [facility] Last Admin: 05/17/20 11:47 Dose: 50 mcg Documented by: Lorazepam (Ativan) 1 mg IVPUSH Q2HR PRN PRN Reason: Anxiety Last Admin: 05/16/20 23:39 Dose: 1 mg Documented by: Losartan Potassium (Cozaar) 100 mg PO DAILY [facility] Last Admin: 05/18/20 09:37 Dose: Not Given Documented by: Melatonin (Melatonin) 9 mg PO BEDTIME PRN PRN Reason: Insomnia Last Admin: 05/17/20 21:23 Dose: 9 mg Documented by: Nystatin (Nystop) 1 gm TOP QID PRN PRN Reason: excoriation Last Admin: 05/16/20 09:13 Dose: 1 applic Documented by: Ondansetron HCl (Zofran Odt) 4 mg PO Q6H PRN PRN Reason: nausea, able to take PO Ondansetron HCl (Zofran) 4 mg IV Q6H PRN PRN Reason: Nausea/Vomiting Simvastatin (Zocor) 20 mg PO DAILY [facility] Last Admin: 05/18/20 09:52 Dose: 20 mg Documented by: Spironolactone (Aldactone) 25 mg PO DAILY [facility] Last Admin: 05/18/20 09:27 Dose: 25 mg Documented by: Trazodone HCl (Trazodone) 50 mg PO BEDTIME PRN PRN Reason: Insomnia Last Admin: 05/17/20 21:23 Dose: 50 mg Documented by: Discontinued Medications Acetaminophen (Tylenol) 975 mg PO ONETIME ONE Stop: 05/09/20 08:57 Last Admin: 05/09/20 09:34 Dose: 975 mg Documented by: Albuterol (Proventil Hfa) 0 gm INH Q2H PRN PRN Reason: Wheezing Last Admin: 05/15/20 16:26 Dose: 1 puff Documented by: Dexamethasone (Dexamethasone) 6 mg IVPUSH Q24H [facility] Last Admin: 05/10/20 11:31 Dose: 6 mg Documented by: Dexamethasone (Dexamethasone) 6 mg PO DAILY [facility] Stop: 05/18/20 09:01 Last Admin: 05/18/20 09:35 Dose: 6 mg Documented by: Enoxaparin Sodium (Lovenox) 40 mg SUBCUT Q12H [facility] Last Admin: 05/10/20 22:50 Dose: Not Given Documented by: Furosemide (Lasix) 40 mg IVPUSH ONETIME ONE Stop: 05/10/20 21:16 Last Admin: 05/10/20 21:35 Dose: 40 mg Documented by: Furosemide (Lasix) 20 mg IVPUSH ONETIME ONE Stop: 05/11/20 16:01 Last Admin: 05/11/20 16:18 Dose: 20 mg Documented by: Furosemide (Lasix) 40 mg IVPUSH NOW ONE Stop: 05/12/20 09:01 Last Admin: 05/12/20 09:06 Dose: 40 mg Documented by: Sodium Chloride (Normal Saline) 1,000 mls @ 150 mls/hr IV ASDIRECTED [facility] Last Admin: 05/10/20 11:31 Dose: 150 mls/hr Documented by: Remdesivir 200 mg/ Sodium (Chloride) 250 mls @ 250 mls/hr IV ONETIME ONE Stop: 05/09/20 12:59 Last Admin: 05/09/20 11:47 Dose: 250 mls/hr Documented by: Remdesivir 100 mg/ Sodium (Chloride) 100 mls @ 100 mls/hr IV Q24H [facility] Stop: 05/13/20 12:59 Last Admin: 05/13/20 12:26 Dose: 100 mls/hr Documented by: Tocilizumab 800 mg/ Sodium (Chloride) 100 mls @ 100 mls/hr IV Q12H [facility] Stop: 05/10/20 01:59 Tocilizumab 800 mg/ Sodium (Chloride) 100 mls @ 100 mls/hr IV Q12H [facility] Stop: 05/10/20 01:59 Last Admin: 05/10/20 00:42 Dose: 100 mls/hr Documented by: Ceftriaxone Sodium 2 gm/ (Sodium Chloride) 100 mls @ 200 mls/hr IV Q24H [facility] Stop: 05/14/20 09:29 Last Admin: 05/14/20 09:31 Dose: 200 mls/hr Documented by: Azithromycin 500 mg/ Sodium (Chloride) 250 mls @ 250 mls/hr IV Q24H [facility] Stop: 05/12/20 10:29 Last Admin: 05/12/20 10:22 Dose: 250 mls/hr Documented by: Sodium Chloride (Normal Saline) 1,000 mls @ 50 mls/hr IV ASDIRECTED [facility] Sodium Chloride (Normal Saline) Confirm Administered Dose 250 mls @ as directed .ROUTE .STK-MED ONE Stop: 05/11/20 11:04 Last Admin: 05/11/20 11:35 Dose: 500 mls/hr Documented by: Magnesium Sulfate 2 gm/ Premix 50 mls @ 25 mls/hr IV ONETIME ONE Stop: 05/11/20 17:29 Last Admin: 05/11/20 16:17 Dose: 25 mls/hr Documented by: Insulin Glargine (Lantus) 5 unit SUBCUT BEDTIME [facility] Last Admin: 05/10/20 20:40 Dose: 5 units Documented by: Insulin Glargine (Lantus) 3 unit SUBCUT DAILY [facility] Last Admin: 05/17/20 08:19 Dose: 3 unit Documented by: Levothyroxine Sodium (Levothyroxine) 50 mcg PO MoWeFr [facility] Last Admin: 05/10/20 10:26 Dose: Not Given Documented by: Tocilizumab (Actemra) 800 mg IV Q12HR [facility] Stop: 05/10/20 09:01 - Exam Quality Assessment: Supplemental Oxygen General: Alert, Oriented HEENT: Pupils Equal, Mucous Membr. Moist/Nectar Neck: Supple Lungs: Wheezing (Mild). No: Normal Respiratory Effort (Improved respiratory rate and effort but still some increased work of breathing.) Cardiovascular: Regular Rate, Regular Rhythm GI/Abdominal Exam: Normal Bowel Sounds, Soft, Non-Tender, No Distention Extremities: Non-Tender, No Pedal Edema, Normal Capillary Refill Skin: Warm, Dry, Intact Neurological: No New Focal Deficit Psy/Mental Status: Alert, Normal Affect, Normal Mood Sepsis Event Note - Evaluation Sepsis Screening Result: Severe Sepsis Risk - Focused Exam Vital Signs: Vital Signs Temp Resp BP BP Pulse Ox Pulse Ox 05/18/20 12:05 19 87 L 05/18/20 12:00 21 H 88 L 05/18/20 11:55 21 H 88 L 05/18/20 11:50 25 H 87 L 05/18/20 11:45 22 H 86 L 05/18/20 11:40 26 H 85 L 05/18/20 11:35 24 H 88 L 05/18/20 11:30 23 H 90 L 05/18/20 11:25 24 H 86 L 05/18/20 11:20 27 H 86 L 05/18/20 11:15 24 H 86 L 05/18/20 11:10 24 H 85 L 05/18/20 11:05 20 82 L 05/18/20 11:00 24 H 80 L 05/18/20 10:55 30 H 85 L 05/18/20 10:50 18 81 L 05/18/20 10:45 24 H 82 L 05/18/20 10:40 25 H 83 L 05/18/20 10:35 20 84 L 05/18/20 10:30 14 85 L 05/18/20 10:25 0 L 82 L 05/18/20 10:20 82 L 05/18/20 10:15 29 H 81 L 05/18/20 10:10 20 78 L 05/18/20 10:05 32 H 05/18/20 10:00 16 92 L 05/18/20 09:55 21 H 97 05/18/20 09:50 23 H 94 L 05/18/20 09:45 19 93 L 05/18/20 09:40 27 H 91 L 05/18/20 09:37 107/63 05/18/20 09:35 29 H 82 L 05/18/20 09:30 19 81 L 05/18/20 09:25 13 84 L 05/18/20 09:20 17 87 L 05/18/20 09:15 22 H 88 L 05/18/20 09:10 23 H 87 L 05/18/20 09:08 24 H 107/63 85 L 05/18/20 09:07 18 84 L 05/18/20 09:05 21 H 85 L 05/18/20 09:00 8 L 84 L 05/18/20 08:55 22 H 83 L 05/18/20 08:50 16 86 L 05/18/20 08:45 25 H 83 L 05/18/20 08:40 21 H 91 L 05/18/20 08:35 20 89 L 05/18/20 08:32 86 L 05/18/20 08:30 18 85 L 05/18/20 08:25 22 H 85 L 05/18/20 08:20 25 H 87 L 05/18/20 08:15 16 83 L 05/18/20 08:10 13 83 L 05/18/20 08:05 16 84 L 05/18/20 08:00 96.2 F L 14 82 L 05/18/20 07:55 20 85 L 05/18/20 07:50 20 83 L 05/18/20 07:45 21 H 85 L 05/18/20 07:40 12 86 L 05/18/20 07:35 85 L 05/18/20 07:30 7 L 84 L 05/18/20 07:25 15 87 L 05/18/20 07:20 12 85 L 05/18/20 07:15 4 L 83 L 05/18/20 07:10 14 84 L 05/18/20 07:05 11 L 84 L 05/18/20 07:00 14 84 L 05/18/20 06:55 18 83 L 05/18/20 06:50 20 82 L 05/18/20 06:45 18 82 L 05/18/20 06:40 19 80 L 05/18/20 06:35 15 82 L 05/18/20 06:30 16 85 L 05/18/20 06:25 17 87 L 05/18/20 06:20 11 L 88 L 05/18/20 06:15 12 85 L 05/18/20 06:10 17 85 L 05/18/20 06:05 17 85 L 05/18/20 06:00 18 84 L 05/18/20 05:55 18 85 L 05/18/20 05:50 19 84 L 05/18/20 05:45 18 83 L 05/18/20 05:40 20 82 L 05/18/20 05:37 84 L 05/18/20 05:35 19 82 L 05/18/20 05:31 82 L 05/18/20 05:30 18 79 L 05/18/20 05:25 22 H 79 L 05/18/20 05:24 80 L 05/18/20 05:21 17 78 L 05/18/20 04:00 97.2 F 19 88/53 L 84 L 05/18/20 01:08 86 L - Problem List & Annotations (1) Acute hypoxemic respiratory failure due to COVID-19 SNOMED Code(s): 829733025 Code(s): U07.1 - COVID-19; J96.01 - ACUTE RESPIRATORY FAILURE WITH HYPOXIA Status: Acute Current Visit: Yes (2) Acute kidney injury due to COVID-19 SNOMED Code(s): 142641097 Code(s): U07.1 - COVID-19; N17.9 - ACUTE KIDNEY FAILURE, UNSPECIFIED S tatus: Acute Current Visit: Yes (3) COPD (chronic obstructive pulmonary disease) SNOMED Code(s): 52482852 Code(s): J44.9 - CHRONIC OBSTRUCTIVE PULMONARY DISEASE, UNSPECIFIED Status: Acute Current Visit: Yes (4) Diabetes mellitus SNOMED Code(s): 43980201 Code(s): E11.9 - TYPE 2 DIABETES MELLITUS WITHOUT COMPLICATIONS Status: Acute Current Visit: Yes (5) Morbid obesity with BMI of 50.0-59.9, adult SNOMED Code(s): 275235004, 75840570583493 Code(s): E66.01 - MORBID (SEVERE) OBESITY DUE TO EXCESS CALORIES; Z68.43 - BODY MASS INDEX (BMI) 50.0-59.9, ADULT Status: Acute Current Visit: Yes (6) Pneumonia due to COVID-19 virus SNOMED Code(s): 751127483 Code(s): U07.1 - COVID-19; J12.89 - OTHER VIRAL PNEUMONIA Status: Acute Current Visit: Yes - Problem List Review Problem List Initiated/Reviewed/Updated: Yes - My Orders Last 24 Hours: My Active Orders 05/18/20 09:00 Insulin Glarg,Human.Rec.Analog [LantUS] 6 unit SUBCUT DAILY 05/18/20 09:16 Albuterol/Ipratropium [DuoNeb 3.0-0.5 MG/3 ML] 3 ml NEB Q4HRRT PRN 05/18/20 Lunch Regular Diet [DIET] - Assessment Assessment:: 05/09/2020 Brought in via EMS from [place] for worsening shortness of breath, hypoxemia and 2 falls associated with [place] and chills last night Vital signs Prior to transfer: Rate 128, respiratory rate 38, blood pressure 134/50 temp 100.8, felt 70% on room air Upon arrival to ED: Heart rate 113, blood pressure 144/123 (130), temperature 101.5, pulse ox 82% on room air (went up to 92% on 3 L) Placed on nasal cannula once in the emergency department did stabilize pulse ox Lab results CBC: WBC 6.8, hemoglobin 13 (macrocytic hypochromic), platelets 212 Chemistry: Sodium 133, potassium 4, chloride 95, magnesium 1.9, CO2 27, GFR 55, glucose 126 LFTs: Total bilirubin 0.4, alkaline phosphatase 46, AST 43, ALT 52, total protein 7.1, albumin 3.2 D-dimer 0.85 Lactate 0.9 Ferritin 243 proBNP 226 CRP 14 ABGs: 7.38/40 5.1/80 05/16 6.1/95.1 on 3 L nasal cannula Hemoglobin A1c 6.7 COVID 19 + Other results: Chest x-ray: Bilateral patchy infiltrates throughout lung [place], diminished lung size, no pleural effusions EKG: Left axis deviation, Q waves in inferior and anterior leads (III, aVF, V4 through V6) 05/10/2020 * Continued worsening oxygenation secondary to COVID-19. * Patient is at very high risk for worsening and severe symptoms secondary to his underlying medical conditions including: Diabetes, hypertension, and morbid obesity. * His creatinine kinase is significantly elevated (over 9000) for unknown reason. * Vital signs stable, T-max 101.5 yesterday morning, * White blood cell count decreased to 1.7. * CRP slightly increased at 16.4. * Troponin 0.039. * D-dimer is 0.87. * Blood sugars ranging from 218 down to 137 * Anticipate increasing blood sugars secondary to dexamethasone * started on remdesivir, dexamethasone, Actemra yesterday 05/11/2020 * Continuing worsening oxygenation requiring high flow nasal cannula. * Patient continues to have minimal shortness of breath at rest. * WBC increased to 2.96. * CRP significantly decreased to 6.6 from 16.4. * D-dimer slightly higher at 1.05. * Mag is slightly low at 1.7. * AST increased to 273, but ALT is 92. ALT is still less than 5 times the upper limit of normal, therefore not a contraindication to remdesivir. * Patient continues on remdesivir, dexamethasone, and 1 unit of convalescent plasma. He only received 1 unit last night secondary to concerns of fluid overload. * Patient received 40 mg of Lasix IV after his first unit of convalescent plasma. * Finished Actemra * Renal function is still good at GFR greater than 60, creatinine 1.2, but BUN slightly elevated at 28 * Blood sugars ranging from mid 100s up to 302. * Patient currently on Lantus 5 units at bedtime and sliding scale Humalog 05/12/2020 * Mild worsening of oxygenation requiring a increase in high flow nasal cannula. 30 L/min at 80% FiO2. * Vital signs: Afebrile, blood pressure stable, respiratory rate 20-30, heart rate 80s * WBC 3.06increased * CRP 3.8decreased * D-dimer 0.80decreased * Renal function: GFR greater than 60, creatinine 1.0 * Remdesivir 4 of 5 days, dexamethasone day 4 of 10 days, completed Actemra, completed 2 units of convalescent plasma * Azithromycin third day of 3, ceftriaxone day 3 of 5 * Blood sugars improved, ranging from 142 to 252 * Currently on Lantus 10 units at bedtime, increased from yesterday * Liver enzymes improved, AST 189, ALT 84. 05/13/2020 * Patient relatively stable today with continued 30 L/min at 80% FiO2 on high flow nasal cannula. * Vital signs stable. Blood pressure well controlled. Afebrile. Weight is down 3-1/2 kg from yesterday. * No labs today since yesterday's were stable and improved. * Fingerstick blood sugar still as high as 307. * Day 4 of ceftriaxone, day 5 of 10 of dexamethasone. * Completed remdesivir, Actemra, and 2 units of convalescent plasma * Increase Lantus tomorrow * Patient had no significant improvement or worsening today. Anticipate that he will slowly begin to improve over the next several days. We will likely have to accept oxygenation in the upper 80s to low 90s with O2 at time of discharge. 05/14/2020 * No significant change in respiratory status. Slightly improved but not significantly. * Labs continue to improve. D-dimer 1.07, C-reactive protein 1.2, AST 106, ALT 77, white count 3.76 * Estimated GFR greater than 60 * Day 5 of ceftriaxone * Day 6 of dexamethasone * Slightly increased Lantus by 3 units this morning and 10 units at night 05/15/2020 * Significant worsening of his hypoxemia and respiratory status. Patient has required increasing amounts of expiratory support and is currently on BiPAP 11/04 with approximately 20 L O2 bled in. Respiratory rate is elevated and he has increased work of breathing. * Patient understands that if he worsens anymore and he is not intubated we may not save his life. Patient's was also notified and also understands the gravity of the situation. Even if we were able to intubate Brett because of his severe underlying COPD, diabetes, hypertension and morbid obesity on top of having COVID pneumonia that appears to be worsening. We have tried pronating him, but he cannot tolerate being on his abdomen nor can he tolerate laying on his hip for any given period time because of pain. Patient does not want to lay on his left side because he hurts and has difficulty breathing. He was in the chair for a few hours today, but he is uncomfortable and requests to lay back in bed frequently. He leaves us with only supination, slight right side, and head up to 45 to 70 degrees in bed. * He has finished remdesivir, ceftriaxone, azithromycin, and Actemra. * He has received 2 units of convalescent plasma. * He is on day 7 of dexamethasone * Blood pressures stable, afebrile * Approximate 20 pound weight loss with significant negative fluid balance * Acute renal injury * Pertinent labs: WBC increased to 10, sodium decreased to 132, worsening renal function BUN 46, creatinine 1.6, estimated GFR 43, d-dimer increased to 2.37, CRP decreased to 0.5 * Increase in WBC is likely secondary to stress considering CRP is decreased. * AST 83, ALT 89 05/16/2020 * Patient has had some improvement over the last 24 hours. He still requiring BiPAP, but his oxygen bleeding is only 15 L, down from approximately 20 L. * He did tolerate high flow nasal cannula for several hours today, but it was at 60 L at 100% FiO2. * Patient's appetite has improved over the last couple of days. He denies any decrease in smell or taste. * Day 8 of dexamethasone. * Blood pressure is well controlled with a map greater than 65. * Blood sugars have also improved without any blood sugars greater than 250 over the last 48 hours. * Acute renal injury has resolved. * WBCs decreased to 5.65 and CRP is now 0.4.. D-dimer decreased to 1.59 overnight. * Liver enzymes down, AST 59, ALT 67 * Patient appears to have plateaued and hopefully will start to improve over the next 24 to 48 hours. 05/17/2020 * Continues requiring significant respiratory support either with BiPAP or high flow nasal cannula. * BiPAP settings: 16/10 with 15 L bled in * High flow nasal cannula at 60 L/min 80% FiO2. * When eating he uses the high flow nasal cannula and when in bed or sleeping he is on BiPAP. * Patient is alert, oriented, and not in distress. * He continues to have episodes of hypoxemia down into the 70s and below if he is off his O2 for any amount of time. * Vital signs stable except for significantly low O2 of mid 80s to upper 80s on the above O2 settings * WBC 6.38, d-dimer 1.51, CRP less than 0.2, hemoglobin 15.6, sodium 135, potass ium 3.9, bicarb 28, BUN 40, creatinine 1.2, GFR greater than 60, glucose 204 * Blood sugars range from 178 to 267 * Day 9 of dexamethasone 05/18/2020 * Patient continues on BiPAP while not eating. He is on high flow nasal cannula when eating. * He still desaturates easily. * Chest x-ray is no significant change. * Patient's oxygenation and respiratory status is stable. * BiPAP settings: 16/2 with 15 L bled in, 40% FiO2 * High flow nasal cannula at 60 L/min at 80% to 200% FiO2 * Blood pressure is lower over the last 24 hours. Hypertensive medications were held this morning. * Afebrile. * WBC 5.8, hemoglobin 15.5, GFR greater than 60. * Continues on Lovenox 40 mg twice daily * Blood sugars improved: Ranging between 118 and 180 today after increasing glargine. Glargine 6 units in the morning and 10 units before bed. * Day 10 10 for dexamethasone * Has completed remdesivir, 2 units convalescent plasma, dexamethasone, Actemra, Rocephin, azithromycin * Very difficult to transfer secondary to his morbid obesity. * Although he is stable he is still at very high risk for complications and mortality because of his underlying health conditions and obesity. - Plan Plan:: Pneumonia due to COVID-19 virus Acute hypoxemic respiratory failure due to COVID-19 Leukopenia Pneumonia PLAN * Continue to change positions, adjust BiPAP for best oxygenation settings, encourage deep breathing, use high flow nasal cannula at mealtime, and respiratory therapy to closely monitor. * Albuterol inhaler 2 puffs every 2 hours PRN shortness of breath. * Continue updating his on his condition. * Patient continues to not want to be intubated. * Remdesivir completed * dexamethasone 6 mg orally day completed 10-day course * Actemra x2 doses completed * 2 units of convalescent plasma completed * Azithromycin completed * Ceftriaxone completed COPD (chronic obstructive pulmonary disease) COPD, not oxygen dependent at home, but oxygen saturations apparently ranged between 85 and 90% Only home treatment is albuterol HFA twice daily Patient states home oxygen saturations are generally between 85 and 90% PLAN Monitor oxygenation Goal pulse ox above 84 albuterol prn Obstructive sleep apnea Endorses full compliance with nightly CPAP for [place] Home Pressure is 8, last adjustment about a year ago PLAN Use BiPAP as above while sleeping Hypertension Blood pressure control is unable to be determined as patient was short of breath and in distress with initial vital signs Home management with amlodipine 10 and losartan 100 PLAN Hold amlodipine -Hold losartan PRN hydralazine for SBP above 200 and DBP above 100 Diabetes mellitus, HbA1c6.7% Diabetes appears to be controlled A1c of 6.7, might be a little bit different due to patient being anemic Glucose at home ranges between 125 and 145 as per patient Home management with metformin and glipizide Has never been on insulin Patient will be started on dexamethasone as per COVID management for which low dose long-acting insulin will be started and adjusted as necessary PLAN Scheduled Accu-Cheks before meals and at bedtime Hypoglycemia protocol Continue glargine 6 units in the morning and 10 units at bedtime -Sliding scale insulin Hold home metformin and glipizide during admission Microcytic hypochromic anemia - resolved Acute kidney injury due to [id number] Elevated LFTs - resolved -Continue monitoring Hypoalbuminemia -Albumin 3.2 Morbid obesity with BMI of 50.0-59.9, adult Patient endorses very poor eating habits Has minimal daily activity pivoting to and from his scooter PLAN * Encourage adequate diet and supplements Hypothyroidism No acute issues identified On home levothyroxine 75 mcg PLAN * Continue home levothyroxine Dyslipidemia Patient likely has undiagnosed coronary artery disease * Identified Q waves on EKG in anterolateral leads and inferior leads Home management with atorvastatin 10, unsure if this covers his ASCVD risk PLAN * Continue atorvastatin and aspirin Gout Denies any previous exacerbations On home allopurinol 400 daily PLAN Continue home allopurinol at 400 daily for now PROPHYLAXIS DVTLovenox twice daily GInot indicated CODE STATUS: DO NOT INTUBATE, confirmed with patient that he changed his mind from previous advanced directives. I reaffirmed this several times. PROGNOSIS: Patient has a very poor prognosis. He has multiple medical problems and is morbidly obese. This places him at a very high risk for complications and mortality. I discussed this with the patient. He stated he did not want to be intubated, but he would want CPR. DISPOSITION: Length of stay greater than 96 hours due to poor improvement and per remdesivir treatment regimen requirements. SOCIAL: Patient is a resident of [place], lives with his there who is medical power of trade mark attorney. Normally does pivot to his scooter but has not been able to do so in the past couple of days Not oxygen dependent at home PCP is Dr. Robert
[2020-05-18] MEDS: Albuterol/Ipratropium 3.0-0.5 MG/3 ML Neb Soln NEB PRN ×2 (13:48→16:53)
[2020-05-18] MEDS: traZODone 50 MG Tab PO PRN (20:29)
[2020-05-18] MEDS: Melatonin 3 MG Tab PO PRN (20:29)
[2020-05-19] MEDS: Albuterol/Ipratropium 3.0-0.5 MG/3 ML Neb Soln NEB PRN ×5 (01:56→21:24)
[2020-05-19] MEDS: Acetaminophen 325 MG Tab PO PRN ×4 (03:43→20:59)
[2020-05-19] MEDS: Albuterol 6.7 GM Inhaler INH PRN (05:13)
[2020-05-19] MEDS: Insulin Lispro 100 Units/ML 3 ML Vial SUBCUT SCH ×4 (07:58→21:01)
[2020-05-19] MEDS: Insulin Glarg,Human.Rec.Analog 100 Unit/ML SUBCUT SCH ×2 (09:39→21:00)
[2020-05-19] MEDS: Furosemide 40 MG Tab PO SCH (09:41)
[2020-05-19] MEDS: Allopurinol 100 MG Tab PO SCH (09:41)
[2020-05-19] MEDS: Aspirin 81 MG Tab.Chew PO SCH (09:41)
[2020-05-19] MEDS: Simvastatin 20 MG Tab PO SCH (09:45)
[2020-05-19] MEDS: Calcium Carbonate/Vitamin D3 600 MG-200 Units Tab PO SCH (09:45)
[2020-05-19] MEDS: Enoxaparin 40 MG/0.4 ML Syringe SUBCUT SCH ×2 (09:46→21:02)
[2020-05-19] MEDS: Spironolactone 25 MG Tab PO SCH (09:46)
[2020-05-19] MEDS: Losartan 100 MG Tab PO SCH (09:46)
[2020-05-19] MEDS: Levothyroxine 50 MCG Tab PO SCH (09:56)
--- NOTE | 2020-05-19 10:33 | PCM.PN ---
- General Info Date of Service: 05/19/20 Subjective Update: Sleeping so so No changes in his shortness of breath Does not want to do anywhere outside [place] Not really hungry, eating what he orders but not ordering enough food - Patient Data Vitals - Most Recent: Last Vital Signs Temp 97 F 05/19/20 08:00 Pulse 70 05/18/20 00:00 Resp 18 05/19/20 08:00 BP 87/53 L 05/19/20 09:46 Pulse Ox 87 L 05/19/20 08:38 Weight - Most Recent: 160.118 kg Comments:: PHYSICAL EXAM IS SEVERELY LIMITED BY BODY HABITUS - Exam Quality Assessment: Supplemental Oxygen General: Alert, Oriented, Cooperative, Mild Distress, Moderate Distress HEENT: Pupils Equal, Pupils Reactive, Mucous Membr. Moist/[place]ck: Supple Lungs: Decreased Breath Sounds Cardiovascular: Regular Rate, Regular Rhythm GI/Abdominal Exam: Distended. No: Guarding Extremities: Other (Stasis dermatitis,+2 pitting edema) Neurological: No New Focal Deficit Sepsis Event Note - Evaluation Sepsis Screening Result: No Definite Risk - Problem List & Annotations (1) Pneumonia due to COVID-19 virus SNOMED Code(s): 399137610 Code(s): U07.1 - COVID-19; J12.89 - OTHER VIRAL PNEUMONIA Status: Acute Current Visit: Yes (2) Acute hypoxemic respiratory failure due to COVID-19 SNOMED Code(s): 564100567 Code(s): U07.1 - COVID-19; J96.01 - ACUTE RESPIRATORY FAILURE WITH HYPOXIA Status: Acute Current Visit: Yes (3) COPD (chronic obstructive pulmonary disease) SNOMED Code(s): 84963964 Code(s): J44.9 - CHRONIC OBSTRUCTIVE PULMONARY DISEASE, UNSPECIFIED Status: Acute Current Visit: Yes (4) Obstructive sleep apnea SNOMED Code(s): 75149158 Code(s): G47.33 - OBSTRUCTIVE SLEEP APNEA (ADULT) (PEDIATRIC) Status: Acute Current Visit: Yes (5) Hypertension SNOMED Code(s): 57507119 Code(s): I10 - ESSENTIAL (PRIMARY) HYPERTENSION Status: Acute Current Visit: Yes (6) Diabetes mellitus SNOMED Code(s): 98397585 Code(s): E11.9 - TYPE 2 DIABETES MELLITUS WITHOUT COMPLICATIONS Status: Acute Current Visit: Yes (7) Microcytic hypochromic anemia SNOMED Code(s): 75191790 Code(s): D50.9 - IRON DEFICIENCY ANEMIA, UNSPECIFIED Status: Acute Current Visit: Yes (8) Acute kidney injury due to COVID-19 SNOMED Code(s): 787430667 Code(s): U07.1 - COVID-19; N17.9 - ACUTE KIDNEY FAILURE, UNSPECIFIED Status: Acute Current Visit: Yes (9) Hypoalbuminemia SNOMED Code(s): 329949664 Code(s): E88.09 - [facility] DISORDERS OF PLASMA-PROTEIN METABOLISM, NEC Status: Acute Current Visit: Yes (10) Morbid obesity with BMI of 50.0-59.9, adult SNOMED Code(s): 836256154, 48866572357290 Code(s): E66.01 - MORBID (SEVERE) OBESITY DUE TO EXCESS CALORIES; Z68.43 - BODY MASS INDEX (BMI) 50.0-59.9, ADULT Status: Acute Current Visit: Yes (11) Hypothyroidism SNOMED Code(s): 10383147 Code(s): E03.9 - HYPOTHYROIDISM, UNSPECIFIED Status: Acute Current Visit: Yes (12) Dyslipidemia SNOMED Code(s): 717204058 Code(s): E78.5 - HYPERLIPIDEMIA, UNSPECIFIED Status: Acute Current Visit: Yes (13) Gout SNOMED Code(s): 79488365 Code(s): M10.9 - GOUT, UNSPECIFIED Status: Acute Current Visit: Yes - Problem List Review Problem List Initiated/Reviewed/Updated: Yes - Assessment Assessment:: 05/09/2020 Brought in via EMS from [facility] for worsening shortness of breath, hypoxemia and 2 falls associated with [place] and chills last night Vital signs Prior to transfer: Rate 128, respiratory rate 38, blood pressure 134/50 temp 100.8, felt 70% on room air Upon arrival to ED: Heart rate 113, blood pressure 144/123 (130), temperature 101.5, pulse ox 82% on room air (went up to 92% on 3 L) Placed on nasal cannula once in the emergency department did stabilize pulse ox Lab results CBC: WBC 6.8, hemoglobin 13 (macrocytic hypochromic), platelets 212 Chemistry: Sodium 133, potassium 4, chloride 95, magnesium 1.9, CO2 27, GFR 55, glucose 126 LFTs: Total bilirubin 0.4, alkaline phosphatase 46, AST 43, ALT 52, total protein 7.1, albumin 3.2 D-dimer 0.85 Lactate 0.9 Ferritin 243 proBNP 226 CRP 14 ABGs: 7.38/40 5.1/80 9/20 6.1/95.1 on 3 L nasal cannula Hemoglobin A1c 6.7 COVID 19 + Other results: Chest x-ray: Bilateral patchy infiltrates throughout lung [place], diminished lung size, no pleural effusions EKG: Left axis deviation, Q waves in inferior and anterior leads (III, aVF, V4 through V6) Pneumonia due to COVID-19 virus Acute hypoxemic respiratory failure due to COVID-19 Pulse ox 82% on room air upon admission which increased to 92% once patient was placed on nasal cannula No respiratory distress noted upon my evaluation Despite body habitus adequate air entry was heard throughout except for diminished at bases ABGs with adequate PaO2 and saturation Multiple cases positive from [facility] Chest x-ray compatible with bilateral viral pneumonia Inflammatory markers except for CRP are low Fever likely from viral infection however blood cultures were drawn in the emergency department Has some risk factors for bacterial pneumonia as well for which her procalcitonin will be ordered and trended COPD (chronic obstructive pulmonary disease) COPD, not oxygen dependent at home Has never needed oxygen supplementation before Never been admitted to the hospital for COPD exacerbation Only home treatment is albuterol HFA twice daily Patient is not wheezing on physical exam, air entry is severely diminished however this is confounded by body habitus Since patient was tachycardic on admission we will hold off on albuterol unless needed Obstructive sleep apnea Endorses full compliance with nightly CPAP for [place] Pressure is 8, last adjustment about a year ago Hypertension Blood pressure control is unable to be determined as patient was short of breath and in distress with initial vital signs Home management with amlodipine 10 and losartan 100 Diabetes mellitus, HbA1c6.7% Diabetes appears to be controlled A1c of 6.7, might be a little bit different due to patient being anemic Glucose at home ranges between 125 and 145 as per patient Home management with metformin and glipizide Has never been on insulin Patient will be started on dexamethasone as per COVID management for which low dose long-acting insulin will be started and adjusted as necessary Microcytic hypochromic anemia Chronicity unknown Alters hemoglobin A1c measurement Acute kidney injury due to COVID-19 Baseline GFR is unknown GFR on admission is 55 Sodium 133 Hypoalbuminemia Morbid obesity with BMI of 50.0-59.9, adult Patient endorses very poor eating habits Has minimal daily activity pivoting to and from his scooter Hypothyroidism No acute issues identified On home levothyroxine 75 mcg Dyslipidemia Patient likely has undiagnosed coronary artery disease Identified Q waves on EKG in anterolateral leads and inferior leads Home management with atorvastatin 10, unsure if this covers his ASCVD risk Gout Denies any previous exacerbations On home allopurinol 400 daily PLAN Start Remdesivir, to complete 5 days Start dexamethasone 6 mg daily to complete 10 days Start Actemra x2 doses for now Depending on improvement tomorrow will decide whether or not he needs convalescent plasma Monitor oxygenation Goal pulse ox above 88 Hold home albuterol Called [facility] to bring home CPAP Continue home amlodipine and losartan PRN hydralazine for SBP above 200 and DBP above 100 Scheduled Accu-Cheks before meals and at bedtime Hypoglycemia protocol Glargine 5 units at bedtime Hold home metformin and glipizide during admission Iron panel ordered Blood smear ordered Goal hemoglobin above 8 NS for now Encourage p.o. fluid intake Monitor urine output Check prior records for baseline GFR Renally dose medications and avoid nephrotoxic ones Repeat labs as needed Prealbumin level Vitamin D, B12 and folic acid levels ordered Continue home levothyroxine New lipid panel Continue atorvastatin and aspirin for now Adjust doses as necessary Uric acid level Continue home allopurinol at 400 daily for now DVTLovenox twice daily GInot indicated Patient will be fully admitted to medical treatment with Remdesivir, dexamethasone and Actemra for now, depending on progress will start plasma and oxygen supplementation. Length of stay at least 5 days as per Remdesivir treatment regimen requirements. 05/10/2020 Continued worsening oxygenation secondary to COVID-19. Patient is at very high risk for worsening and severe symptoms secondary to his underlying medical conditions including: Diabetes, hypertension, and morbid obesity. His creatinine kinase is significantly elevated (over 9000) for unknown reason. Vital signs stable, T-max 101.5 yesterday morning, White blood cell count decreased to 1.7. CRP slightly increased at 16.4. Troponin 0.039. D-dimer is 0.87. Blood sugars ranging from 218 down to 137 Anticipate increasing blood sugars secondary to dexamethasone started on remdesivir, dexamethasone, Actemra yesterday 05/11/2020 Continuing worsening oxygenation requiring high flow nasal cannula. Patient continues to have minimal shortness of breath at rest. WBC increased to 2.96. CRP significantly decreased to 6.6 from 16.4. D-dimer slightly higher at 1.05. Mag is slightly low at 1.7. AST increased to 273, but ALT is 92. ALT is still less than 5 times the upper limit of normal, therefore not a contraindication to remdesivir. Patient continues on remdesivir, dexamethasone, and 1 unit of convalescent plasma. He only received 1 unit last night secondary to concerns of fluid overload. Patient received 40 mg of Lasix IV after his first unit of convalescent plasma. Finished Actemra Renal function is still good at GFR greater than 60, creatinine 1.2, but BUN slightly elevated at 28 Blood sugars ranging from mid 100s up to 302. Patient currently on Lantus 5 units at bedtime and sliding scale Humalog 05/12/2020 Mild worsening of oxygenation requiring a increase in high flow nasal cannula. 30 L/min at 80% FiO2. Vital signs: Afebrile, blood pressure stable, respiratory rate 20-30, heart rate 80s WBC 3.06increased CRP 3.8decreased D-dimer 0.80decreased Renal function: GFR greater than 60, creatinine 1.0 Remdesivir 4 of 5 days, dexamethasone day 4 of 10 days, completed Actemra, completed 2 units of convalescent plasma Azithromycin third day of 3, ceftriaxone day 3 of 5 Blood sugars improved, ranging from 142 to 252 Currently on Lantus 10 units at bedtime, increased from yesterday Liver enzymes improved, AST 189, ALT 84. 05/13/2020 Patient relatively stable today with continued 30 L/min at 80% FiO2 on high flow nasal cannula. Vital signs stable. Blood pressure well controlled. Afebrile. Weight is down 3-1/2 kg from yesterday. No labs today since yesterday's were stable and improved. Fingerstick blood sugar still as high as 307. Day 4 of ceftriaxone, day 5 of 10 of dexamethasone. Completed remdesivir, Actemra, and 2 units of convalescent plasma Increase Lantus tomorrow Patient had no significant improvement or worsening today. Anticipate that he will slowly begin to improve over the next several days. We will likely have to accept oxygenation in the upper 80s to low 90s with O2 at time of discharge. 05/14/2020 No significant change in respiratory status. Slightly improved but not significantly. Labs continue to improve. D-dimer 1.07, C-reactive protein 1.2, AST 106, ALT 77, white count 3.76 Estimated GFR greater than 60 Day 5 of ceftriaxone Day 6 of dexamethasone Slightly increased Lantus by 3 units this morning and 10 units at night 05/15/2020 Significant worsening of his hypoxemia and respiratory status. Patient has required increasing amounts of expiratory support and is currently on BiPAP 11/04 with approximately 20 L O2 bled in. Respiratory rate is elevated and he has increased work of breathing. Patient understands that if he worsens anymore and he is not intubated we may not save his life. Patient's was also notified and also understands the gravity of the situation. Even if we were able to intubate Brett because of his severe underlying COPD, diabetes, hypertension and morbid obesity on top of having COVID pneumonia that appears to be worsening. We have tried pronating him, but he cannot tolerate being on his abdomen nor can he tolerate laying on his hip for any given period time because of pain. Patient does not want to lay on his left side because he hurts and has difficulty breathing. He was in the chair for a few hours today, but he is uncomfortable and requests to lay back in bed frequently. He leaves us with only supination, slight right side, and head up to 45 to 70 degrees in bed. He has finished remdesivir, ceftriaxone, azithromycin, and Actemra. He has received 2 units of convalescent plasma. He is on day 7 of dexamethasone Blood pressures stable, afebrile Approximate 20 pound weight loss with significant negative fluid balance Acute renal injury Pertinent labs: WBC increased to 10, sodium decreased to 132, worsening renal function BUN 46, creatinine 1.6, estimated GFR 43, d-dimer increased to 2.37, CRP decreased to 0.5 Increase in WBC is likely secondary to stress considering CRP is decreased. AST 83, ALT 89 05/16/2020 Patient has had some improvement over the last 24 hours. He still requiring BiPAP, but his oxygen bleeding is only 15 L, down from approximately 20 L. He did tolerate high flow nasal cannula for several hours today, but it was at 60 L at 100% FiO2. Patient's appetite has improved over the last couple of days. He denies any decrease in smell or taste. Day 8 of dexamethasone. Blood pressure is well controlled with a map greater than 65. Blood sugars have also improved without any blood sugars greater than 250 over the last 48 hours. Acute renal injury has resolved. WBCs decreased to 5.65 and CRP is now 0.4.. D-dimer decreased to 1.59 overnight. Liver enzymes down, AST 59, ALT 67 Patient appears to have plateaued and hopefully will start to improve over the next 24 to 48 hours. 05/17/2020 Continues requiring significant respiratory support either with BiPAP or high flow nasal cannula. BiPAP settings: 11/06 with 15 L bled in High flow nasal cannula at 60 L/min 80% FiO2. When eating he uses the high flow nasal cannula and when in bed or sleeping he is on BiPAP. Patient is alert, oriented, and not in distress. He continues to have episodes of hypoxemia down into the 70s and below if he is off his O2 for any amount of time. Vital signs stable except for significantly low O2 of mid 80s to upper 80s on the above O2 settings WBC 6.38, d-dimer 1.51, CRP less than 0.2, hemoglobin 15.6, sodium 135, potassium 3.9, bicarb 28, BUN 40, creatinine 1.2, GFR greater than 60, glucose 204 Blood sugars range from 178 to 267 Day 9 of dexamethasone 05/18/2020 Patient continues on BiPAP while not eating. He is on high flow nasal cannula when eating. He still desaturates easily. Chest x-ray is no significant change. Patient's oxygenation and respiratory status is stable. BiPAP settings: 12/10 with 15 L bled in, 40% FiO2 High flow nasal cannula at 60 L/min at 80% to 200% FiO2 Blood pressure is lower over the last 24 hours. Hypertensive medications were held this morning. Afebrile. WBC 5.8, hemoglobin 15.5, GFR greater than 60. Continues on Lovenox 40 mg twice daily Blood sugars improved: Ranging between 118 and 180 today after increasing glargine. Glargine 6 units in the morning and 10 units before bed. for dexamethasone Has completed remdesivir, 2 units convalescent plasma, dexamethasone, Actemra, Rocephin, azithromycin Very difficult to transfer secondary to his morbid obesity. Although he is stable he is still at very high risk for complications and mortality because of his underlying health conditions and obesity. PLAN Continue to change positions, adjust BiPAP for best oxygenation settings, encourage deep breathing, use high flow nasal cannula at mealtime, and respiratory therapy to closely monitor. Albuterol inhaler 2 puffs every 2 hours PRN shortness of breath. Continue updating his on his condition. Patient continues to not want to be intubated. Remdesivir completed Dexamethasone 6 mg orally day completed 10-day course Actemra x2 doses completed 2 units of convalescent plasma completed Azithromycin completed Ceftriaxone completed Monitor oxygenation Goal pulse ox above 84 Albuterol PRN Hold amlodipine and losartan PRN hydralazine for SBP above 200 and DBP above 100 Scheduled Accu-Cheks before meals and at bedtime Hypoglycemia protocol Continue glargine 6 units in the morning and 10 units at bedtime Sliding scale insulin Hold home metformin and glipizide during admission Encourage adequate diet and supplements Continue home levothyroxine Continue atorvastatin and aspirin Continue home allopurinol at 400 daily for now 05/19/2020 Adamantly refusing [facility] for placement Symptoms have not improved Still requiring Hi flow NC while awake and BiPAP during sleep Staff reporting patient is not motivated for anything and refusing PT/OT but continues to ask about going home Has lost 24lb since admission ASCVD risk is 37.8% VS trend BP 87-122/53-66 HR 68-93 Tmax: 99.2 SatO2 > 80% on Hi flow and BiPAP Intake and output UO: 2,175 24h balance: -1,455 Balance since admission: -10,032 Lab results Glucose trend 118-274 - Plan Plan:: Pneumonia due to COVID-19 virus Acute hypoxemic respiratory failure due to COVID-19 Chronic obstructive pulmonary disease Obstructive sleep apnea Continue Hi flow and BiPAP for O2 supplementation Will attempt full wean to O2 supplementation that is available as an outpatient in AM RT follow up Incentive spirometry Goal pulse ox > 84% Albuterol inhaler PRN Hypertension Hold amlodipine and losartan PRN hydralazine Diabetes mellitus, HbA1c6.7% Scheduled Accu-Cheks before meals and at bedtime Hypoglycemia protocol Discontinue AM glargine and sliding scale insulin Glargine 15u at bedtime Continue to hold home PO medications Hypoalbuminemia Morbid obesity with BMI of 55.3 Continue to encourage PO intake Dietary follow up Hypothyroidism Continue home levothyroxine Dyslipidemia Continue atorvastatin and aspirin Gout Continue home allopurinol at 400mg daily Leukopenia, resolved Microcytic hypochromic anemia, resolved Acute kidney injury due to COVID-19, resolved Elevated LFTs, resolved PROPHYLAXIS DVTLovenox twice daily GInot indicated CODE STATUS: DO NOT INTUBATE DISPOSITION: Admitted with COVID infection on oxygen supplementation, has completed treatment but we have been unable to improve his oxygen requirements. Physical therapy was recommending SNF placement however all facilities in [place] are not full at this time. Patient is declining referral to any place outside of [place]. Discussion was had with patient regarding LTAC placement which he adamantly refused. Patient's prognosis is very poor since admission and has continued to worsen since then. I had an extensive discussion with patient today requiring possibilities of transfer and plan of care with current status. Patient voiced understanding and the plan was made that we will attempt to wean patient down to oxygen requirements that can be administered as an outpatient tomorrow in the morning. If patient's oxygenation drops significantly that time we will transition patient to comfort measures. We will update his today. Length of stay greater than 96 hours due to minimal improvement after treatment and continued requirement of significantly high FiO2.
[2020-05-19] MEDS ORDERED: Lactated Ringers 1,000 ML IV SCH (17:15)
[2020-05-19] MEDS ORDERED: Lactated Ringers 1,000 ML ONE (17:22)
[2020-05-19] MEDS: traZODone 50 MG Tab PO PRN (20:58)
[2020-05-19] MEDS: Melatonin 3 MG Tab PO PRN (20:59)
[2020-05-20] MEDS: Melatonin 3 MG Tab PO PRN ×2 (00:16→21:13)
[2020-05-20] MEDS: Acetaminophen 325 MG Tab PO PRN ×2 (00:16→12:50)
[2020-05-20] MEDS: Albuterol/Ipratropium 3.0-0.5 MG/3 ML Neb Soln NEB PRN (06:37)
[2020-05-20] MEDS: Insulin Lispro 100 Units/ML 3 ML Vial SUBCUT SCH ×2 (08:56→17:08)
[2020-05-20] MEDS: Calcium Carbonate/Vitamin D3 600 MG-200 Units Tab PO SCH (08:56)
[2020-05-20] MEDS: Spironolactone 25 MG Tab PO SCH (08:57)
[2020-05-20] MEDS: Losartan 100 MG Tab PO SCH (08:58)
[2020-05-20] MEDS: Aspirin 81 MG Tab.Chew PO SCH (08:58)
[2020-05-20] MEDS: Allopurinol 100 MG Tab PO SCH (08:59)
[2020-05-20] MEDS ORDERED: Furosemide 20 MG Tab PO SCH (09:00)
[2020-05-20] MEDS: Insulin Glarg,Human.Rec.Analog 100 Unit/ML SUBCUT SCH (09:01)
[2020-05-20] MEDS: Enoxaparin 40 MG/0.4 ML Syringe SUBCUT SCH (09:04)
[2020-05-20] MEDS: Levothyroxine 25 MCG Tab PO SCH (09:19)
[2020-05-20] MEDS: Simvastatin 20 MG Tab PO SCH (09:30)
[2020-05-20] MEDS ORDERED: Morphine 2 MG/ML SYRINGE ONE (12:38)
[2020-05-20] MEDS ORDERED: Haloperidol Lactate 5 MG/ML SDV IVPUSH PRN (13:50)
[2020-05-20] MEDS ORDERED: Metoclopramide 10 MG Tab PO PRN (13:50)
[2020-05-20] MEDS ORDERED: Albuterol 0.083% 2.5 MG/3 ML Neb Soln NEB PRN (13:50)
[2020-05-20] MEDS ORDERED: Lactoperoxi/Gluc Oxid/Pot Thio 42 GM Tube MUCMEM PRN (13:50)
[2020-05-20] MEDS ORDERED: Carboxymethylcellulose Sodium 1% Ophth Gel 15 ML Bottle EYEBOTH PRN (13:50)
[2020-05-20] MEDS ORDERED: Atropine 1% Ophth Soln 5 ML BOTTLE SL PRN (13:50)
[2020-05-20] MEDS ORDERED: Scopolamine 1.5 MG Transdermal Patch TRDERM PRN (13:50)
--- NOTE | 2020-05-20 16:22 | PCM.PN ---
- General Info Date of Service: 05/20/20 Subjective Update: Feeling OK Tolerating diet Requiring hi flow NC and BIPAP to keep pulse ox > 74% - Patient Data Vitals - Most Recent: Last Vital Signs Temp 98.0 F 05/20/20 08:00 Pulse 87 05/20/20 08:00 Resp 18 05/20/20 08:00 BP 110/62 05/20/20 08:58 Pulse Ox 83 L 05/20/20 13:44 Weight - Most Recent: 160.572 kg - Exam General: Alert, Oriented, Cooperative, Mild Distress, Moderate Distress, Other (LIMITED DUE TO BODY HABITUS) HEENT: Pupils Equal, Pupils Reactive, EOMI, Mucous Membr. Moist/[place] Neck: Supple Lungs: Decreased Breath Sounds, Crackles. No: Rales, Rhonchi, Rub, Stridor, Wheezing Cardiovascular: Regular Rhythm, Tachycardia. No: Murmurs, Gallops, Rubs GI/Abdominal Exam: Non-Tender, Distended. No: Guarding Peripheral Pulses: 2+: Radial (L), Radial (R) Neurological: No New Focal Deficit Sepsis Event Note - Evaluation Sepsis Screening Result: No Definite Risk - Problem List & Annotations (1) Pneumonia due to COVID-19 virus SNOMED Code(s): 660264726 Code(s): U07.1 - COVID-19; J12.89 - OTHER VIRAL PNEUMONIA Status: Acute Current Visit: Yes (2) Acute hypoxemic respiratory failure due to COVID-19 SNOMED Code(s): 403799888 Code(s): U07.1 - COVID-19; J96.01 - ACUTE RESPIRATORY FAILURE WITH HYPOXIA Status: Acute Current Visit: Yes (3) COPD (chronic obstructive pulmonary disease) SNOMED Code(s): 89880490 Code(s): J44.9 - CHRONIC OBSTRUCTIVE PULMONARY DISEASE, UNSPECIFIED Status: Acute Current Visit: Yes (4) Obstructive sleep apnea SNOMED Code(s): 48467761 Code(s): G47.33 - OBSTRUCTIVE SLEEP APNEA (ADULT) (PEDIATRIC) Status: Acute Current Visit: Yes (5) Hypertension SNOMED Code(s): 85827830 Code(s): I10 - ESSENTIAL (PRIMARY) HYPERTENSION Status: Acute Current Visit: Yes (6) Diabetes mellitus SNOMED Code(s): 35381222 Code(s): E11.9 - TYPE 2 DIABETES MELLITUS WITHOUT COMPLICATIONS Status: Acute Current Visit: Yes (7) Microcytic hypochromic anemia SNOMED Code(s): 67691194 Code(s): D50.9 - IRON DEFICIENCY ANEMIA, UNSPECIFIED Status: Acute Current Visit: Yes (8) Acute kidney injury due to COVID-19 SNOMED Code(s): 156444407 Code(s): U07.1 - COVID-19; N17.9 - ACUTE KIDNEY FAILURE, UNSPECIFIED Status: Acute Current Visit: Yes (9) Hypoalbuminemia SNOMED Code(s): 456120496 Code(s): E88.09 - [facility] DISORDERS OF PLASMA-PROTEIN METABOLISM, NEC Status: Acute Current Visit: Yes (10) Morbid obesity with BMI of 50.0-59.9, adult SNOMED Code(s): 705978238, 49136046874877 Code(s): E66.01 - MORBID (SEVERE) OBESITY DUE TO EXCESS CALORIES; Z68.43 - BODY MASS INDEX (BMI) 50.0-59.9, ADULT Status: Acute Current Visit: Yes (11) Hypothyroidism SNOMED Code(s): 79232646 Code(s): E03.9 - HYPOTHYROIDISM, UNSPECIFIED Status: Acute Current Visit: Yes (12) Dyslipidemia SNOMED Code(s): 706807980 Code(s): E78.5 - HYPERLIPIDEMIA, UNSPECIFIED Status: Acute Current Visit: Yes (13) Gout SNOMED Code(s): 17423001 Code(s): M10.9 - GOUT, UNSPECIFIED Status: Acute Current Visit: Yes - Problem List Review Problem List Initiated/Reviewed/Updated: Yes - Assessment Assessment:: 05/09/2020 Brought in via EMS from [place] for worsening shortness of breath, hypoxemia and 2 falls associated with [place] and chills last night Vital signs Prior to transfer: Rate 128, respiratory rate 38, blood pressure 134/50 temp 100.8, felt 70% on room air Upon arrival to ED: Heart rate 113, blood pressure 144/123 (130), temperature 101.5, pulse ox 82% on room air (went up to 92% on 3 L) Placed on nasal cannula once in the emergency department did stabilize pulse ox Lab results CBC: WBC 6.8, hemoglobin 13 (macrocytic hypochromic), platelets 212 Chemistry: Sodium 133, potassium 4, chloride 95, magnesium 1.9, CO2 27, GFR 55, glucose 126 LFTs: Total bilirubin 0.4, alkaline phosphatase 46, AST 43, ALT 52, total protein 7.1, albumin 3.2 D-dimer 0.85 Lactate 0.9 Ferritin 243 proBNP 226 CRP 14 ABGs: 7.38/40 5.1/80 9/20 6.1/95.1 on 3 L nasal cannula Hemoglobin A1c 6.7 COVID 19 + Other results: Chest x-ray: Bilateral patchy infiltrates throughout lung [place], diminished lung size, no pleural effusions EKG: Left axis deviation, Q waves in inferior and anterior leads (III, aVF, V4 through V6) Pneumonia due to COVID-19 virus Acute hypoxemic respiratory failure due to COVID-19 Pulse ox 82% on room air upon admission which increased to 92% once patient was placed on nasal cannula No respiratory distress noted upon my evaluation Despite body habitus adequate air entry was heard throughout except for diminished at bases ABGs with adequate PaO2 and saturation Multiple cases positive from [place] Chest x-ray compatible with bilateral viral pneumonia Inflammatory markers except for CRP are low Fever likely from viral infection however blood cultures were drawn in the emergency department Has some risk factors for bacterial pneumonia as well for which her procalci tonin will be ordered and trended COPD (chronic obstructive pulmonary disease) COPD, not oxygen dependent at home Has never needed oxygen supplementation before Never been admitted to the hospital for COPD exacerbation Only home treatment is albuterol HFA twice daily Patient is not wheezing on physical exam, air entry is severely diminished however this is confounded by body habitus Since patient was tachycardic on admission we will hold off on albuterol unless needed Obstructive sleep apnea Endorses full compliance with nightly CPAP for [place] Pressure is 8, last adjustment about a year ago Hypertension Blood pressure control is unable to be determined as patient was short of breath and in distress with initial vital signs Home management with amlodipine 10 and losartan 100 Diabetes mellitus, HbA1c6.7% Diabetes appears to be controlled A1c of 6.7, might be a little bit different due to patient being anemic Glucose at home ranges between 125 and 145 as per patient Home management with metformin and glipizide Has never been on insulin Patient will be started on dexamethasone as per COVID management for which low dose long-acting insulin will be started and adjusted as necessary Microcytic hypochromic anemia Chronicity unknown Alters hemoglobin A1c measurement Acute kidney injury due to COVID-19 Baseline GFR is unknown GFR on admission is 55 Sodium 133 Hypoalbuminemia Morbid obesity with BMI of 50.0-59.9, adult Patient endorses very poor eating habits Has minimal daily activity pivoting to and from his scooter Hypothyroidism No acute issues identified On home levothyroxine 75 mcg Dyslipidemia Patient likely has undiagnosed coronary artery disease Identified Q waves on EKG in anterolateral leads and inferior leads Home management with atorvastatin 10, unsure if this covers his ASCVD risk Gout Denies any previous exacerbations On home allopurinol 400 daily PLAN Start Remdesivir, to complete 5 days Start dexamethasone 6 mg daily to complete 10 days Start Actemra x2 doses for now Depending on improvement tomorrow will decide whether or not he needs convalescent plasma Monitor oxygenation Goal pulse ox above 88 Hold home albuterol Called [place] to bring home CPAP Continue home amlodipine and losartan PRN hydralazine for SBP above 200 and DBP above 100 Scheduled Accu-Cheks before meals and at bedtime Hypoglycemia protocol Glargine 5 units at bedtime Hold home metformin and glipizide during admission Iron panel ordered Blood smear ordered Goal hemoglobin above 8 NS for now Encourage p.o. fluid intake Monitor urine output Check prior records for baseline GFR Renally dose medications and avoid nephrotoxic ones Repeat labs as needed Prealbumin level Vitamin D, B12 and folic acid levels ordered Continue home levothyroxine New lipid panel Continue atorvastatin and aspirin for now Adjust doses as necessary Uric acid level Continue home allopurinol at 400 daily for now DVTLovenox twice daily GInot indicated Patient will be fully admitted to medical treatment with Remdesivir, dexamethasone and Actemra for now, depending on progress will start plasma and oxygen supplementation. Length of stay at least 5 days as per Remdesivir treatment regimen requirements. 05/10/2020 Continued worsening oxygenation secondary to COVID-19. Patient is at very high risk for worsening and severe symptoms secondary to his underlying medical conditions including: Diabetes, hypertension, and morbid obesity. His creatinine kinase is significantly elevated (over 9000) for unknown reason. Vital signs stable, T-max 101.5 yesterday morning, White blood cell count decreased to 1.7. CRP slightly increased at 16.4. Troponin 0.039. D-dimer is 0.87. Blood sugars ranging from 218 down to 137 Anticipate increasing blood sugars secondary to dexamethasone started on remdesivir, dexamethasone, Actemra yesterday 05/11/2020 Continuing worsening oxygenation requiring high flow nasal cannula. Patient continues to have minimal shortness of breath at rest. WBC increased to 2.96. CRP significantly decreased to 6.6 from 16.4. D-dimer slightly higher at 1.05. Mag is slightly low at 1.7. AST increased to 273, but ALT is 92. ALT is still less than 5 times the upper limit of normal, therefore not a contraindication to remdesivir. Patient continues on remdesivir, dexamethasone, and 1 unit of convalescent plasma. He only received 1 unit last night secondary to concerns of fluid overload. Patient received 40 mg of Lasix IV after his first unit of convalescent plasma. Finished Actemra Renal function is still good at GFR greater than 60, creatinine 1.2, but BUN slightly elevated at 28 Blood sugars ranging from mid 100s up to 302. Patient currently on Lantus 5 units at bedtime and sliding scale Humalog 05/12/2020 Mild worsening of oxygenation requiring a increase in high flow nasal cannula. 30 L/min at 80% FiO2. Vital signs: Afebrile, blood pressure stable, respiratory rate 20-30, heart rate 80s WBC 3.06increased CRP 3.8decreased D-dimer 0.80decreased Renal function: GFR greater than 60, creatinine 1.0 Remdesivir 4 of 5 days, dexamethasone day 4 of 10 days, completed Actemra, completed 2 units of convalescent plasma Azithromycin third day of 3, ceftriaxone day 3 of 5 Blood sugars improved, ranging from 142 to 252 Currently on Lantus 10 units at bedtime, increased from yesterday Liver enzymes improved, AST 189, ALT 84. 05/13/2020 Patient relatively stable today with continued 30 L/min at 80% FiO2 on high flow nasal cannula. Vital signs stable. Blood pressure well controlled. Afebrile. Weight is down 3-1/2 kg from yesterday. No labs today since yesterday's were stable and improved. Fingerstick blood sugar still as high as 307. Day 4 of ceftriaxone, day 5 of 10 of dexamethasone. Completed remdesivir, Actemra, and 2 units of convalescent plasma Increase Lantus tomorrow Patient had no significant improvement or worsening today. Anticipate that he will slowly begin to improve over the next several days. We will likely have to accept oxygenation in the upper 80s to low 90s with O2 at time of discharge. 05/14/2020 No significant change in respiratory status. Slightly improved but not significantly. Labs continue to improve. D-dimer 1.07, C-reactive protein 1.2, AST 106, ALT 77, white count 3.76 Estimated GFR greater than 60 Day 5 of ceftriaxone Day 6 of dexamethasone Slightly increased Lantus by 3 units this morning and 10 units at night 05/15/2020 Significant worsening of his hypoxemia and respiratory status. Patient has required increasing amounts of expiratory support and is currently on BiPAP 11/04 with approximately 20 L O2 bled in. Respiratory rate is elevated and he has increased work of breathing. Patient understands that if he worsens anymore and he is not intubated we may not save his life. Patient's was also notified and also understands the gravity of the situation. Even if we were able to intubate Brett because of his severe underlying COPD, diabetes, hypertension and morbid obesity on top of having COVID pneumonia that appears to be worsening. We have tried pronating him, but he cannot tolerate being on his abdomen nor can he tolerate laying on his hip for any given period time because of pain. Patient does not want to lay on his left side because he hurts and has difficulty breathing. He was in the chair for a few hours today, but he is uncomfortable and requests to lay back in bed frequently. He leaves us with only supination, slight right side, and head up to 45 to 70 degrees in bed. He has finished remdesivir, ceftriaxone, azithromycin, and Actemra. He has received 2 units of convalescent plasma. He is on day 7 of dexamethasone Blood pressures stable, afebrile Approximate 20 pound weight loss with significant negative fluid balance Acute renal injury Pertinent labs: WBC increased to 10, sodium decreased to 132, worsening renal function BUN 46, creatinine 1.6, estimated GFR 43, d-dimer increased to 2.37, CRP decreased to 0.5 Increase in WBC is likely secondary to stress considering CRP is decreased. AST 83, ALT 89 05/16/2020 Patient has had some improvement over the last 24 hours. He still requiring BiPAP, but his oxygen bleeding is only 15 L, down from approximately 20 L. He did tolerate high flow nasal cannula for several hours today, but it was at 60 L at 100% FiO2. Patient's appetite has improved over the last couple of days. He denies any decrease in smell or taste. Day 8 of dexamethasone. Blood pressure is well controlled with a map greater than 65. Blood sugars have also improved without any blood sugars greater than 250 over the last 48 hours. Acute renal injury has resolved. WBCs decreased to 5.65 and CRP is now 0.4.. D-dimer decreased to 1.59 overnight. Liver enzymes down, AST 59, ALT 67 Patient appears to have plateaued and hopefully will start to improve over the next 24 to 48 hours. 05/17/2020 Continues requiring significant respiratory support either with BiPAP or high flow nasal cannula. BiPAP settings: 11/06 with 15 L bled in High flow nasal cannula at 60 L/min 80% FiO2. When eating he uses the high flow nasal cannula and when in bed or sleeping he is on BiPAP. Patient is alert, oriented, and not in distress. He continues to have episodes of hypoxemia down into the 70s and below if he is off his O2 for any amount of time. Vital signs stable except for significantly low O2 of mid 80s to upper 80s on the above O2 settings WBC 6.38, d-dimer 1.51, CRP less than 0.2, hemoglobin 15.6, sodium 135, potassium 3.9, bicarb 28, BUN 40, creatinine 1.2, GFR greater than 60, glucose 204 Blood sugars range from 178 to 267 Day 9 of dexamethasone 05/18/2020 Patient continues on BiPAP while not eating. He is on high flow nasal cannula when eating. He still desaturates easily. Chest x-ray is no significant change. Patient's oxygenation and respiratory status is stable. BiPAP settings: 12/10 with 15 L bled in, 40% FiO2 High flow nasal cannula at 60 L/min at 80% to 200% FiO2 Blood pressure is lower over the last 24 hours. Hypertensive medications were held this morning. Afebrile. WBC 5.8, hemoglobin 15.5, GFR greater than 60. Continues on Lovenox 40 mg twice daily Blood sugars improved: Ranging between 118 and 180 today after increasing glargine. Glargine 6 units in the morning and 10 units before bed. Day 10 of 10 for dexamethasone Has completed remdesivir, 2 units convalescent plasma, dexamethasone, Actemra, Rocephin, azithromycin Very difficult to transfer secondary to his morbid obesity. Although he is stable he is still at very high risk for complications and mortality because of his underlying health conditions and obesity. PLAN Continue to change positions, adjust BiPAP for best oxygenation settings, encourage deep breathing, use high flow nasal cannula at mealtime, and respiratory therapy to closely monitor. Albuterol inhaler 2 puffs every 2 hours PRN shortness of breath. Continue updating his on his condition. Patient continues to not want to be intubated. Remdesivir completed Dexamethasone 6 mg orally day completed 10-day course Actemra x2 doses completed 2 units of convalescent plasma completed Azithromycin completed Ceftriaxone completed Monitor oxygenation Goal pulse ox above 84 Albuterol PRN Hold amlodipine and losartan PRN hydralazine for SBP above 200 and DBP above 100 Scheduled Accu-Cheks before meals and at bedtime Hypoglycemia protocol Continue glargine 6 units in the morning and 10 units at bedtime Sliding scale insulin Hold home metformin and glipizide during admission Encourage adequate diet and supplements Continue home levothyroxine Continue atorvastatin and aspirin Continue home allopurinol at 400 daily for now 05/19/2020 Adamantly refusing [facility] for placement Symptoms have not improved Still requiring Hi flow NC while awake and BiPAP during sleep Staff reporting patient is not motivated for anything and refusing PT/OT but continues to ask about going home Has lost 24lb since admission ASCVD risk is 37.8% VS trend BP 87-122/53-66 HR 68-93 Tmax: 99.2 SatO2 > 80% on Hi flow and BiPAP Intake and output UO: 2,175 24h balance: -1,455 Balance since admission: -10,032 Lab results Glucose trend 118-274 PLAN Continue Hi flow and BiPAP for O2 supplementation Will attempt full wean to O2 supplementation that is available as an outpatient in AM RT follow up Incentive spirometry Goal pulse ox > 84% Albuterol inhaler PRN Hold amlodipine and losartan PRN hydralazine Scheduled Accu-Cheks before meals and at bedtime Hypoglycemia protocol Discontinue AM glargine and sliding scale insulin Glargine 15u at bedtime Continue to hold home PO DM medications Continue to encourage PO intake Dietary follow up Continue home levothyroxine Continue atorvastatin and aspirin Continue home allopurinol at 400mg daily Admitted with COVID infection on oxygen supplementation, has completed treatment but we have been unable to improve his oxygen requirements. Physical therapy was recommending SNF placement however all facilities in [place] are not full at this time. Patient is declining referral to any place outside of [place]. Discussion was had with patient regarding LTAC placement which he adamantly refused. Patient's prognosis is very poor since admission and has continued to worsen since then. I had an extensive discussion with patient today requiring possibilities of transfer and plan of care with current status. Patient voiced understanding and the plan was made that we will attempt to wean patient down to oxygen requirements that can be administered as an outpatient tomorrow in the morning. If patient's oxygenation drops significantly that time we will transition patient to comfort measures. We will update his today. 05/20/2020 Plan to discontinue hi flow oxygen today and patient's pulse oximetry dropped to high 70's Discussed options with patient again and he agreed to discontinue Hi flow oxygen and transition to BiPAP with a 10L bleed in, this will be done once , who is at [place] is available for video chat. VS trend BP 83-113/51-65 HR 68-91 Tmax: 97.9 SatO2 > 74% on Hi flow and BiPAP Intake and output UO: 1,840 24h balance: +600 Balance since admission: -9,432 Lab results Glucose trend 119-203 - Plan Plan:: Comfort measures status Acute hypoxemic respiratory failure due to COVID-19 Discontinue Hi flow O2 and transition to BiPAP with 10L bleed in PRN Ativan, morphine, atropine, haloperidol Diet as tolerated VS per shift INACTIVE Pneumonia due to COVID-19 virus Chronic obstructive pulmonary disease Obstructive sleep apnea Hypertension Diabetes mellitus, HbA1c6.7% Hypoalbuminemia Morbid obesity with BMI of 55.3 Hypothyroidism Dyslipidemia Gout Leukopenia, resolved Microcytic hypochromic anemia, resolved Acute kidney injury due to COVID-19, resolved Elevated LFTs, resolved PROPHYLAXIS DVT/GI-discontinued CODE STATUS: COMFORT MEASURES DISPOSITION: Patient transitioned to comfort measures on BiPAP with 10L bleed in, plan to transition to home CPAP tonight wit comfort measures for symptom control. Case was discussed with [place] who indicated they are unable to take patient back with current level of care needed.
[2020-05-20] MEDS: Morphine 2 MG/ML SYRINGE IVPUSH PRN ×2 (21:14→23:04)
[2020-05-20] MEDS: LORazepam 2 MG/ML SDV IVPUSH PRN ×2 (21:18→22:57)
[2020-05-21] MEDS: Morphine 2 MG/ML SYRINGE IVPUSH PRN ×6 (00:34→06:27)
[2020-05-21] MEDS: LORazepam 2 MG/ML SDV IVPUSH PRN ×3 (00:50→02:23)
--- NOTE | 2020-05-21 09:39 | PCM.DCSUM1 ---
Discharge Summary - Hospital Course HPI Initial Comments: This is a 69-year-old male with past medical history of COPD, LUKAS, diabetes and hypertension who comes emergency department brought in via EMS from [place], shortness of breath, hypoxemia and decreased appetite. As per patient he was in his usual state of health until yesterday while transferring from his chair to. Describes falling denies legs giving out from under him any symptoms before or after or loss of consciousness. This morning had a second fall described as "exactly the same as yesterday". Does state that he had some chills last night. For [facility] patient's vital signs this morning were heart rate of 128, respiratory rate of 38, blood pressure 135/60, temperature 100.8 and pulse ox of 70% on room air. They also state the patient is normally a pivot to his chair pending but has been unable to do so since yesterday. Associated with CONWAY and mild worsening of edema of his left foot. He denies sputum production, bronchitis, chest pain, palpitations, orthopnea, PND, abdominal pain, diarrhea, nausea, vomiting or problems in his urine. Diagnosis: Stroke: No - Discharge Data Discharge Date: 05/21/20 Discharge Disposition: 20 Condition: - Referral to Home Health Primary Care Physician: Qiana Robert MD - Discharge Diagnosis/Problem(s) (1) Pneumonia due to COVID-19 virus SNOMED Code(s): 378463213 ICD Code: U07.1 - COVID-19; J12.89 - OTHER VIRAL PNEUMONIA Status: Acute Current Visit: Yes (2) Acute hypoxemic respiratory failure due to COVID-19 SNOMED Code(s): 276637371 ICD Code: U07.1 - COVID-19; J96.01 - ACUTE RESPIRATORY FAILURE WITH HYPOXIA Status: Acute Current Visit: Yes (3) COPD (chronic obstructive pulmonary disease) SNOMED Code(s): 74186106 ICD Code: J44.9 - CHRONIC OBSTRUCTIVE PULMONARY DISEASE, UNSPECIFIED Status: Acute Current Visit: Yes (4) Obstructive sleep apnea SNOMED Code(s): 01198615 ICD Code: G47.33 - OBSTRUCTIVE SLEEP APNEA (ADULT) (PEDIATRIC) Status: Acute Current Visit: Yes (5) Hypertension SNOMED Code(s): 92933324 ICD Code: I10 - ESSENTIAL (PRIMARY) HYPERTENSION Status: Acute Current Visit: Yes (6) Diabetes mellitus SNOMED Code(s): 85065298 ICD Code: E11.9 - TYPE 2 DIABETES MELLITUS WITHOUT COMPLICATIONS Status: Acute Current Visit: Yes (7) Microcytic hypochromic anemia SNOMED Code(s): 69676798 ICD Code: D50.9 - IRON DEFICIENCY ANEMIA, UNSPECIFIED Status: Acute Current Visit: Yes (8) Acute kidney injury due to COVID-19 SNOMED Code(s): 719652078 ICD Code: U07.1 - COVID-19; N17.9 - ACUTE KIDNEY FAILURE, UNSPECIFIED Status: Acute Current Visit: Yes (9) Hypoalbuminemia SNOMED Code(s): 149802943 ICD Code: E88.09 - OTH DISORDERS OF PLASMA-PROTEIN METABOLISM, NEC Status: Acute Current Visit: Yes (10) Morbid obesity with BMI of 50.0-59.9, adult SNOMED Code(s): 076263163, 28647297018175 ICD Code: E66.01 - MORBID (SEVERE) OBESITY DUE TO EXCESS CALORIES; Z68.43 - BODY MASS INDEX (BMI) 50.0-59.9, ADULT Status: Acute Current Visit: Yes (11) Hypothyroidism SNOMED Code(s): 71871721 ICD Code: E03.9 - HYPOTHYROIDISM, UNSPECIFIED Status: Acute Current Visit: Yes (12) Dyslipidemia SNOMED Code(s): 397208811 ICD Code: E78.5 - HYPERLIPIDEMIA, UNSPECIFIED Status: Acute Current Visit: Yes (13) Gout SNOMED Code(s): 80419117 ICD Code: M10.9 - GOUT, UNSPECIFIED Status: Acute Current Visit: Yes - Patient Summary/Data Hospital Course: 05/09/2020 Brought in via EMS from [place] for worsening shortness of breath, hypoxemia and 2 falls associated with CONWAY and chills last night Vital signs Prior to transfer: Rate 128, respiratory rate 38, blood pressure 134/50 temp 100.8, felt 70% on room air Upon arrival to ED: Heart rate 113, blood pressure 144/123 (130), temperature 101.5, pulse ox 82% on room air (went up to 92% on 3 L) Placed on nasal cannula once in the emergency department did stabilize pulse ox Lab results CBC: WBC 6.8, hemoglobin 13 (macrocytic hypochromic), platelets 212 Chemistry: Sodium 133, potassium 4, chloride 95, magnesium 1.9, CO2 27, GFR 55, glucose 126 LFTs: Total bilirubin 0.4, alkaline phosphatase 46, AST 43, ALT 52, total protein 7.1, albumin 3.2 D-dimer 0.85 Lactate 0.9 Ferritin 243 proBNP 226 CRP 14 ABGs: 7.38/40 5.1/80 9/20 6.1/95.1 on 3 L nasal cannula Hemoglobin A1c 6.7 COVID 19 + Other results: Chest x-ray: Bilateral patchy infiltrates throughout lung [place], diminished lung size, no pleural effusions EKG: Left axis deviation, Q waves in inferior and anterior leads (III, aVF, V4 through V6) Pneumonia due to COVID-19 virus Acute hypoxemic respiratory failure due to COVID-19 Pulse ox 82% on room air upon admission which increased to 92% once patient was placed on nasal cannula No respiratory distress noted upon my evaluation Despite body habitus adequate air entry was heard throughout except for diminished at bases ABGs with adequate PaO2 and saturation Multiple cases positive from [place] Chest x-ray compatible with bilateral viral pneumonia Inflammatory markers except for CRP are low Fever likely from viral infection however blood cultures were drawn in the emergency department Has some risk factors for bacterial pneumonia as well for which her procalcitonin will be ordered and trended COPD (chronic obstructive pulmonary disease) COPD, not oxygen dependent at home Has never needed oxygen supplementation before Never been admitted to the hospital for COPD exacerbation Only home treatment is albuterol HFA twice daily Patient is not wheezing on physical exam, air entry is severely diminished however this is confounded by body habitus Since patient was tachycardic on admission we will hold off on albuterol unless needed Obstructive sleep apnea Endorses full compliance with nightly CPAP for LUKAS Pressure is 8, last adjustment about a year ago Hypertension Blood pressure control is unable to be determined as patient was short of breath and in distress with initial vital signs Home management with amlodipine 10 and losartan 100 Diabetes mellitus, HbA1c6.7% Diabetes appears to be controlled A1c of 6.7, might be a little bit different due to patient being anemic Glucose at home ranges between 125 and 145 as per patient Home management with metformin and glipizide Has never been on insulin Patient will be started on dexamethasone as per COVID management for which low dose long-acting insulin will be started and adjusted as necessary Microcytic hypochromic anemia Chronicity unknown Alters hemoglobin A1c measurement Acute kidney injury due to COVID-19 Baseline GFR is unknown GFR on admission is 55 Sodium 133 Hypoalbuminemia Morbid obesity with BMI of 50.0-59.9, adult Patient endorses very poor eating habits Has minimal daily activity pivoting to and from his scooter Hypothyroidism No acute issues identified On home levothyroxine 75 mcg Dyslipidemia Patient likely has undiagnosed coronary artery disease Identified Q waves on EKG in anterolateral leads and inferior leads Home management with atorvastatin 10, unsure if this covers his ASCVD risk Gout Denies any previous exacerbations On home allopurinol 400 daily PLAN Start Remdesivir, to complete 5 days Start dexamethasone 6 mg daily to complete 10 days Start Actemra x2 doses for now Depending on improvement tomorrow will decide whether or not he needs convalescent plasma Monitor oxygenation Goal pulse ox above 88 Hold home albuterol Called [facility] to bring home CPAP Continue home amlodipine and losartan PRN hydralazine for SBP above 200 and DBP above 100 Scheduled Accu-Cheks before meals and at bedtime Hypoglycemia protocol Glargine 5 units at bedtime Hold home metformin and glipizide during admission Iron panel ordered Blood smear ordered Goal hemoglobin above 8 NS for now Encourage p.o. fluid intake Monitor urine output Check prior records for baseline GFR Renally dose medications and avoid nephrotoxic ones Repeat labs as needed Prealbumin level Vitamin D, B12 and folic acid levels ordered Continue home levothyroxine New lipid panel Continue atorvastatin and aspirin for now Adjust doses as necessary Uric acid level Continue home allopurinol at 400 daily for now DVTLovenox twice daily GInot indicated Patient will be fully admitted to medical treatment with Remdesivir, dexamethasone and Actemra for now, depending on progress will start plasma and oxygen supplementation. Length of stay at least 5 days as per Remdesivir treatment regimen requirements. 05/10/2020 Continued worsening oxygenation secondary to COVID-19. Patient is at very high risk for worsening and severe symptoms secondary to his underlying medical conditions including: Diabetes, hypertension, and morbid obesity. His creatinine kinase is significantly elevated (over 9000) for unknown reason. Vital signs stable, T-max 101.5 yesterday morning, White blood cell count decreased to 1.7. CRP slightly increased at 16.4. Troponin 0.039. D-dimer is 0.87. Blood sugars ranging from 218 down to 137 Anticipate increasing blood sugars secondary to dexamethasone started on remdesivir, dexamethasone, Actemra yesterday 05/11/2020 Continuing worsening oxygenation requiring high flow nasal cannula. Patient continues to have minimal shortness of breath at rest. WBC increased to 2.96. CRP significantly decreased to 6.6 from 16.4. D-dimer slightly higher at 1.05. Mag is slightly low at 1.7. AST increased to 273, but ALT is 92. ALT is still less than 5 times the upper limit of normal, therefore not a contraindication to remdesivir. Patient continues on remdesivir, dexamethasone, and 1 unit of convalescent plasma. He only received 1 unit last night secondary to concerns of fluid overload. Patient received 40 mg of Lasix IV after his first unit of convalescent plasma. Finished Actemra Renal function is still good at GFR greater than 60, creatinine 1.2, but BUN slightly elevated at 28 Blood sugars ranging from mid 100s up to 302. Patient currently on Lantus 5 units at bedtime and sliding scale Humalog 05/12/2020 Mild worsening of oxygenation requiring a increase in high flow nasal cannula. 30 L/min at 80% FiO2. Vital signs: Afebrile, blood pressure stable, respiratory rate 20-30, heart rate 80s WBC 3.06increased CRP 3.8decreased D-dimer 0.80decreased Renal function: GFR greater than 60, creatinine 1.0 Remdesivir 4 of 5 days, dexamethasone day 4 of 10 days, completed Actemra, completed 2 units of convalescent plasma Azithromycin third day of 3, ceftriaxone day 3 of 5 Blood sugars improved, ranging from 142 to 252 Currently on Lantus 10 units at bedtime, increased from yesterday Liver enzymes improved, AST 189, ALT 84. 05/13/2020 Patient relatively stable today with continued 30 L/min at 80% FiO2 on high flow nasal cannula. Vital signs stable. Blood pressure well controlled. Afebrile. Weight is down 3-1/2 kg from yesterday. No labs today since yesterday's were stable and improved. Fingerstick blood sugar still as high as 307. Day 4 of ceftriaxone, day 5 of 10 of dexamethasone. Completed remdesivir, Actemra, and 2 units of convalescent plasma Increase Lantus tomorrow Patient had no significant improvement or worsening today. Anticipate that he will slowly begin to improve over the next several days. We will likely have to accept oxygenation in the upper 80s to low 90s with O2 at time of discharge. 05/14/2020 No significant change in respiratory status. Slightly improved but not significantly. Labs continue to improve. D-dimer 1.07, C-reactive protein 1.2, AST 106, ALT 77, white count 3.76 Estimated GFR greater than 60 Day 5 of ceftriaxone Day 6 of dexamethasone Slightly increased Lantus by 3 units this morning and 10 units at night 05/15/2020 Significant worsening of his hypoxemia and respiratory status. Patient has required increasing amounts of expiratory support and is currently on BiPAP 11/04 with approximately 20 L O2 bled in. Respiratory rate is elevated and he has increased work of breathing. Patient understands that if he worsens anymore and he is not intubated we may not save his life. Patient's was also notified and also understands the gravity of the situation. Even if we were able to intubate Brett because of his severe underlying COPD, diabetes, hypertension and morbid obesity on top of having COVID pneumonia that appears to be worsening. We have tried pronating him, but he cannot tolerate being on his abdomen nor can he tolerate laying on his hip for any given period time because of pain. Patient does not want to lay on his left side because he hurts and has difficulty breathing. He was in the chair for a few hours today, but he is uncomfortable and requests to lay back in bed frequently. He leaves us with only supination, slight right side, and head up to 45 to 70 degrees in bed. He has finished remdesivir, ceftriaxone, azithromycin, and Actemra. He has received 2 units of convalescent plasma. He is on day 7 of dexamethasone Blood pressures stable, afebrile Approximate 20 pound weight loss with significant negative fluid balance Acute renal injury Pertinent labs: WBC increased to 10, sodium decreased to 132, worsening renal function BUN 46, creatinine 1.6, estimated GFR 43, d-dimer increased to 2.37, CRP decreased to 0.5 Increase in WBC is likely secondary to stress considering CRP is decreased. AST 83, ALT 89 05/16/2020 Patient has had some improvement over the last 24 hours. He still requiring BiPAP, but his oxygen bleeding is only 15 L, down from approximately 20 L. He did tolerate high flow nasal cannula for several hours today, but it was at 60 L at 100% FiO2. Patient's appetite has improved over the last couple of days. He denies any decrease in smell or taste. Day 8 of dexamethasone. Blood pressure is well controlled with a map greater than 65. Blood sugars have also improved without any blood sugars greater than 250 over the last 48 hours. Acute renal injury has resolved. WBCs decreased to 5.65 and CRP is now 0.4.. D-dimer decreased to 1.59 overnight. Liver enzymes down, AST 59, ALT 67 Patient appears to have plateaued and hopefully will start to improve over the next 24 to 48 hours. 05/17/2020 Continues requiring significant respiratory support either with BiPAP or high flow nasal cannula. BiPAP settings: 11/06 with 15 L bled in High flow nasal cannula at 60 L/min 80% FiO2. When eating he uses the high flow nasal cannula and when in bed or sleeping he is on BiPAP. Patient is alert, oriented, and not in distress. He continues to have episodes of hypoxemia down into the 70s and below if he is off his O2 for any amount of time. Vital signs stable except for significantly low O2 of mid 80s to upper 80s on the above O2 settings WBC 6.38, d-dimer 1.51, CRP less than 0.2, hemoglobin 15.6, sodium 135, potassium 3.9, bicarb 28, BUN 40, creatinine 1.2, GFR greater than 60, glucose 204 Blood sugars range from 178 to 267 Day 9 of dexamethasone 05/18/2020 Patient continues on BiPAP while not eating. He is on high flow nasal cannula when eating. He still desaturates easily. Chest x-ray is no significant change. Patient's oxygenation and respiratory status is stable. BiPAP settings: 12/10 with 15 L bled in, 40% FiO2 High flow nasal cannula at 60 L/min at 80% to 200% FiO2 Blood pressure is lower over the last 24 hours. Hypertensive medications were held this morning. Afebrile. WBC 5.8, hemoglobin 15.5, GFR greater than 60. Continues on Lovenox 40 mg twice daily Blood sugars improved: Ranging between 118 and 180 today after increasing glargine. Glargine 6 units in the morning and 10 units before bed. Day 10 of 10 for dexamethasone Has completed remdesivir, 2 units convalescent plasma, dexamethasone, Actemra, Rocephin, azithromycin Very difficult to transfer secondary to his morbid obesity. Although he is stable he is still at very high risk for complications and mortality because of his underlying health conditions and obesity. PLAN Continue to change positions, adjust BiPAP for best oxygenation settings, encourage deep breathing, use high flow nasal cannula at mealtime, and respiratory therapy to closely monitor. Albuterol inhaler 2 puffs every 2 hours PRN shortness of breath. Continue updating his on his condition. Patient continues to not want to be intubated. Remdesivir completed Dexamethasone 6 mg orally day completed 10-day course Actemra x2 doses completed 2 units of convalescent plasma completed Azithromycin completed Ceftriaxone completed Monitor oxygenation Goal pulse ox above 84 Albuterol PRN Hold amlodipine and losartan PRN hydralazine for SBP above 200 and DBP above 100 Scheduled Accu-Cheks before meals and at bedtime Hypoglycemia protocol Continue glargine 6 units in the morning and 10 units at bedtime Sliding scale insulin Hold home metformin and glipizide during admission Encourage adequate diet and supplements Continue home levothyroxine Continue atorvastatin and aspirin Continue home allopurinol at 400 daily for now 05/19/2020 Adamantly refusing [facility] for placement Symptoms have not improved Still requiring Hi flow NC while awake and BiPAP during sleep Staff reporting patient is not motivated for anything and refusing PT/OT but continues to ask about going home Has lost 24lb since admission ASCVD risk is 37.8% VS trend BP 87-122/53-66 HR 68-93 Tmax: 99.2 SatO2 > 80% on Hi flow and BiPAP Intake and output UO: 2,175 24h balance: -1,455 Balance since admission: -10,032 Lab results Glucose trend 118-274 PLAN Continue Hi flow and BiPAP for O2 supplementation Will attempt full wean to O2 supplementation that is available as an outpatient in AM RT follow up Incentive spirometry Goal pulse ox > 84% Albuterol inhaler PRN Hold amlodipine and losartan PRN hydralazine Scheduled Accu-Cheks before meals and at bedtime Hypoglycemia protocol Discontinue AM glargine and sliding scale insulin Glargine 15u at bedtime Continue to hold home PO DM medications Continue to encourage PO intake Dietary follow up Continue home levothyroxine Continue atorvastatin and aspirin Continue home allopurinol at 400mg daily Admitted with COVID infection on oxygen supplementation, has completed treatment but we have been unable to improve his oxygen requirements. Physical therapy was recommending SNF placement however all facilities in [place] are not full at this time. Patient is declining referral to any place outside of [place]. Discussion was had with patient regarding LTAC placement which he adamantly refused. Patient's prognosis is very poor since admission and has continued to worsen since then. I had an extensive discussion with patient today requiring possibilities of transfer and plan of care with current status. Patient voiced understanding and the plan was made that we will attempt to wean patient down to oxygen requirements that can be administered as an outpatient tomorrow in the morning. If patient's oxygenation drops significantly that time we will transition patient to comfort measures. We will update his today. 05/20/2020 Plan to discontinue hi flow oxygen today and patient's pulse oximetry dropped to high 70's Discussed options with patient again and he agreed to discontinue Hi flow oxygen and transition to BiPAP with a 10L bleed in, this will be done once , who is at [facility] is available for video chat. VS trend BP 83-113/51-65 HR 68-91 Tmax: 97.9 SatO2 > 74% on Hi flow and BiPAP Intake and output UO: 1,840 24h balance: +600 Balance since admission: -9,432 Lab results Glucose trend 119-203 PLAN Discontinue Hi flow O2 and transition to BiPAP with 10L bleed in PRN Ativan, morphine, atropine, haloperidol Diet as tolerated VS per shift Discontinue prophylaxis Patient transitioned to comfort measures on BiPAP with 10L bleed in, plan to transition to home CPAP tonight wit comfort measures for symptom control. Case was discussed with [facility] who indicated they are unable to take patient back with current level of care needed. Later on in the day was contacted and was contacted via video chat in room At that time hi flow oxygen was removed and patient was transitioned to BiPAP with 10L bleed in, later transitioned to CPAP with home settings 05/21/2020 Overnight patient's respiratory status continued to decline until he stopped breathing early in AM Pronounced at 7:04AM Family selected [facility] home who was contacted and coordinated transfer of remains. - Discharge Plan *PRESCRIPTION DRUG MONITORING PROGRAM REVIEWED*: Not Applicable *COPY OF PRESCRIPTION DRUG MONITORING REPORT IN PATIENT EDWIN: Not Applicable Home Medications: Home Meds Acetaminophen [Tylenol] 650 mg PO ASDIRECTED PRN 05/09/20 [History] Albuterol Sulfate [Albuterol Sulfate Hfa] 2 puff INH BID 05/09/20 [History] Allopurinol [Zyloprim] 400 mg PO DAILY 05/09/20 [History] Aspirin 81 mg PO DAILY 05/09/20 [History] Calcium Carbonate/Vitamin D3 [Calcium Carbonate/Vitamin D 600 MG-200 Unit] 600 mg PO DAILY 05/09/20 [History] Furosemide [Lasix] 40 mg PO DAILY 05/09/20 [History] Levothyroxine 25 - 50 mcg PO ASDIRECTED 05/09/20 [History] Losartan [Cozaar] 100 mg PO DAILY 05/09/20 [History] Multivitamin 1 tab PO DAILY 05/09/20 [History] Spironolactone [Aldactone] 25 mg PO DAILY 05/09/20 [History] Ubidecarenone [Coenzyme Q10] 100 mg PO DAILY 05/09/20 [History] amLODIPine Besylate [Norvasc] 10 mg PO DAILY 05/09/20 [History] atorvaSTATin [Lipitor] 10 mg PO DAILY 05/09/20 [History] glipiZIDE [Glipizide ER] 5 mg PO DAILY 05/09/20 [History] metFORMIN HCl [Fortamet] 1,000 mg PO DAILY 05/09/20 [History] Patient Handouts: Type 2 Diabetes Mellitus, Diagnosis, Adult, COVID-19, Sepsis, Diagnosis, Adult Forms: ED Department Discharge Referrals: Qiana Robert MD [Primary Care Provider] - - Discharge Summary/Plan Comment DC Time >30 min.: No
== END 2020-05-21 08:45 | disposition expired | DRG 177 ==
LOC: JD.ED 08:48 → JD.MS 11:27 → JD.ICU 05-10 17:02
PROVIDERS: ADMIT Family Medicine; ATTEND Family Medicine
PROC: XW033E5 Introduction of Remdesivir Anti-infective into Peripheral Vein, Percutaneous Approach, New Technology Group 5 (ICD-10-PCS; 2020-05-09)
PROC: 8E0ZXY6 Isolation (ICD-10-PCS; principal; 2020-05-10)
PROC: XW033E5 Introduction of Remdesivir Anti-infective into Peripheral Vein, Percutaneous Approach, New Technology Group 5 (ICD-10-PCS; 2020-05-10)
PROC: XW033E5 Introduction of Remdesivir Anti-infective into Peripheral Vein, Percutaneous Approach, New Technology Group 5 (ICD-10-PCS; 2020-05-11)
PROC: XW033E5 Introduction of Remdesivir Anti-infective into Peripheral Vein, Percutaneous Approach, New Technology Group 5 (ICD-10-PCS; 2020-05-12)
PROC: XW13325 Transfusion of Convalescent Plasma (Nonautologous) into Peripheral Vein, Percutaneous Approach, New Technology Group 5 (ICD-10-PCS; 2020-05-12)
PROC: XW033E5 Introduction of Remdesivir Anti-infective into Peripheral Vein, Percutaneous Approach, New Technology Group 5 (ICD-10-PCS; 2020-05-13)
PROC: XW13325 Transfusion of Convalescent Plasma (Nonautologous) into Peripheral Vein, Percutaneous Approach, New Technology Group 5 (ICD-10-PCS; 2020-05-13)
PROC: XW13325 Transfusion of Convalescent Plasma (Nonautologous) into Peripheral Vein, Percutaneous Approach, New Technology Group 5 (ICD-10-PCS; 2020-05-15)
PROC: 5A09557 Assistance with Respiratory Ventilation, Greater than 96 Consecutive Hours, Continuous Positive Airway Pressure (ICD-10-PCS; 2020-05-15)
DX: U07.1 COVID-19 (principal); J18.9 Pneumonia, unspecified organism; R09.02 Hypoxemia; J12.89 Other viral pneumonia; J96.01 Acute respiratory failure with hypoxia; J44.0 Chronic obstructive pulmonary disease with (acute) lower respiratory infection; N17.9 Acute kidney failure, unspecified; Z68.43 Body mass index [BMI] 50.0-59.9, adult; J44.9 Chronic obstructive pulmonary disease, unspecified; G47.30 Sleep apnea, unspecified; G47.33 Obstructive sleep apnea (adult) (pediatric); I10 Essential (primary) hypertension; N40.1 Benign prostatic hyperplasia with lower urinary tract symptoms; R35.1 Nocturia; Z51.5 Encounter for palliative care; E11.9 Type 2 diabetes mellitus without complications; E66.01 Morbid (severe) obesity due to excess calories; Z66 Do not resuscitate; Z91.81 History of falling; E03.9 Hypothyroidism, unspecified; D50.9 Iron deficiency anemia, unspecified; E78.5 Hyperlipidemia, unspecified; M10.9 Gout, unspecified; M54.9 Dorsalgia, unspecified; G89.29 Other chronic pain; M19.90 Unspecified osteoarthritis, unspecified site; Z79.82 Long term (current) use of aspirin; Z79.890 Hormone replacement therapy; Z79.84 Long term (current) use of oral hypoglycemic drugs; I25.2 Old myocardial infarction; Z79.899 Other long term (current) drug therapy; Z79.51 Long term (current) use of inhaled steroids; Z99.81 Dependence on supplemental oxygen; W19.XXXA Unspecified fall, initial encounter
CPT/HCPCS: 36415; 36600; 71045; 80053; 80061; 82306; 82553; 82607; 82728; 82746; 82803; 83036; 83540; 83605; 83615; 83735; 83880; 84466; 84484; 84550; 85007; 85027; 85045; 85379; 85610; 85730; 86140; 87040 ×2; 93005; 96360; 96361; 99285; A9270; J7030; U0002; 36430; 51702; 80048; 81001; 82550; 82962; 84100; 84134; 85025; 86900; 86901; 87641; 94640; 94660; 94667; 94668; 97110-GP; 97162-GP; 97165-GO; 97530-GO; 97530-GP; 99223; 99232; 99233; 99238; J0456; J0696; J1100; J1630; J1650; J1815-GY; J1940; J2060; J2270; J3262; J3475; J7050; J7120; J7620-GY; J8540; P9017